=== PATIENT | male | born 1935 | race Caucasian/White ===

== ENCOUNTER 2016-10-05 11:09 | Observation (INO) ==
[2016-10-05] MEDS ORDERED: 0.9 % Sodium Chloride 1,000 ML IVC ONE (11:14)
[2016-10-05] MEDS ORDERED: Ondansetron 4 MG/2 ML VIAL IVP ONE (11:15)
--- NOTE | 2016-10-05 11:20 | Emergency Department Note ---
Disposition Clinical Impression: Hypoxia, Elevated troponin, Dehydration, Shortness of breath Nausea and vomiting Qualifiers: Vomiting type: unspecified Vomiting Intractability: non-intractable Qualified Code(s): R11.2 - Nausea with vomiting, unspecified Disposition: Admitted As Inpatient Condition: Fair Referrals: Ptat Shin CNP [Primary Care Provider] - Forms: ED Satisfaction Letter Time of Disposition: 12:53 Nausea/Vomiting/Diarrhea HPI - General Chief complaint: ED Nausea/Vomiting/Diarrhea Stated complaint: N/V x4 days Time Seen by Provider: 10/05/16 11:14 Source: patient, EMS Mode of arrival: EMS Limitations: no limitations Nursing Notes Reviewed: Yes Vital Signs Reviewed: Yes - History of Present Illness HPI Narrative: Patient is a 80-year-old male with past medical history of COPD, CAD, A. fib, pacemaker placement, DM, previous abdominal surgery for ulcers according to patient. He presents today via EMS due to nausea, vomiting, generalized abdominal pain, diarrhea. Patient said this has been occurring for 3-4 days and he came in today due to intractable vomiting and diarrhea. Denies any chest pain, shortness of breath, burning with urination, blood in vomit or - Related Data Home Medications Medication Instructions Recorded Confirmed Amiodarone [Cordarone] 200 mg PO DAILY 09/19/15 05/17/16 Calcium Carbonate/Vitamin D3 1 each PO DAILY 09/19/15 05/17/16 [Calcium 500-Vit D3 400 Tablet] Ferrous Sulfate [Iron] 325 mg PO DAILY 09/19/15 05/17/16 Furosemide [Lasix] 40 mg PO DAILY 09/19/15 05/17/16 Gabapentin [Neurontin] 600 mg PO TID 09/19/15 05/17/16 Linagliptin [Tradjenta] 5 mg PO DAILY 09/19/15 05/17/16 Melatonin [Melatin] 3 mg PO QPM 09/19/15 05/17/16 Omeprazole [PriLOSEC] 20 mg PO DAILY 09/19/15 05/17/16 Potassium Chloride [Klor-Con 10 meq PO BID 09/19/15 05/17/16 Sprinkle] Rivaroxaban [Xarelto] 20 mg PO DAILY 09/19/15 05/17/16 Sertraline [Zoloft] 100 mg PO DAILY 09/19/15 05/17/16 TraMADol [Ultram] 50 mg PO TID PRN 09/19/15 05/17/16 Atorvastatin [Lipitor] 40 mg PO HS 05/17/16 05/17/16 Cyanocobalamin (Vitamin B-12) 1,000 mcg PO DAILY 05/17/16 05/17/16 [Vitamin B12] Donepezil [Aricept] 10 mg PO HS 05/17/16 05/17/16 Insulin ASPART [Novolog] 0 unit SQ TIDWM MDD per sliding 05/17/16 05/17/16 scale Insulin Glargine [Lantus] 14 unit SQ QAM 05/17/16 05/17/16 Ipratropium/Albuterol Neb [Duoneb] 3 ml IH Q6HR PRN 05/17/16 05/17/16 Ondansetron HCl [Zofran] 4 mg PO BID PRN 05/17/16 05/17/16 Oxygen 1 each .ROUTE AD 05/17/16 05/17/16 Ranolazine [Ranexa] 500 mg PO BID 05/17/16 05/17/16 Previous Rx's Medication Instructions Recorded Finasteride [Proscar] 5 mg PO DAILY #30 tablet 11/05/15 Hydrocodone/Acetaminophen [[place] 1 tab PO Q6H PRN #12 tab 12/12/15 5-325 Tablet] Levofloxacin [Levaquin] 750 mg PO DAILY #10 tablet 05/18/16 PredniSONE 60 mg PO DAILY 12 Days 05/18/16 Simvastatin [Zocor] 20 mg PO HS #30 tablet 05/18/16 Allergies Allergy/AdvReac Type Severity Reaction Status Date / Time amitriptyline Allergy Unknown unknown Verified 12/12/15 11:40 All systems ED: reviewed and negative except as stated. Constitutional: Reports: weakness (Generalized). Denies: fever, chills Eyes: Denies: eye pain, eye discharge ENT ED: Denies: ear pain, throat pain Cardiovascular: Denies: chest pain, palpitations Respiratory: Reports: wheezes. Denies: cough, dyspnea Gastrointestinal: Reports: abdominal pain (Generalized), nausea, vomiting, diarrhea. Denies: hematemesis, melena, hematochezia Genitourinary: Denies: urgency, dysuria, frequency Musculoskeletal: Denies: back pain, neck pain Integumentary: Denies: rash Neurological: Denies: headache, numbness, paresthesias Endocrine: Denies: fatigue Past Medical History - Past Medical History Attestation: Yes The following information was validated with the patient. Medical history: Reports: atrial fibrillation, COPD, coronary artery disease, DVT, diabetes, GERD, hyperlipidemia, hypertension, myocardial infarction Surgical history: Reports: angioplasty/stent, pacemaker/AICD Psychiatric history: Reports: depression - Social History Smoking Status: Current every day smoker Smokeless Tobacco Status: No Alcohol use: Reports: none Drug use: Reports: none Physical Exam - General Limitations: no limitations General appearance: alert, other (Patient lying on left side in position, appears uncomfortable and dehydrated.) - Head Head exam: atraumatic, normocephalic, normal inspection - Eye Eye exam: Present: normal appearance, PERRL, EOMI - ENT ENT exam: normal oropharynx, mucous membranes dry - Neck Neck exam: Present: normal inspection, full ROM, trachea midline - Chest Chest inspection: Present: normal inspection, symmetric chest wall rise - Respiratory Respiratory exam: Present: wheezes - Cardiovascular Cardiovascular exam: Present: normal rhythm, tachycardia, normal heart sounds - Abdominal Exam Abdominal exam: Present: soft, tenderness (Generalized abdominal tenderness, mild). Absent: distention, guarding, rebound, rigidity - Extremities Exam Extremities exam: Present: normal inspection, full ROM. Absent: tenderness, pedal edema - Back Exam Back exam: Present: normal inspection, full ROM. Absent: tenderness - Neurological Exam Neurological exam: Present: alert, oriented X3, CN II-XII intact - Psychiatric Psychiatric exam: Present: normal affect, normal mood - Skin Skin exam: Present: warm, dry, intact, normal color Course Course Narrative: Patient was hypoxic 88% on presentation without O2. 2L NC sating in 96%. Rest of vitals WNL. Will obtain basic blood work, EKG, chest x-ray, acute abdominal series, troponin, abdominal labs. We will give patient fluids and Zofran for dehydration and nausea control. 12:06 labs showed leukocytosis with white blood cell count 16. BMP nonconcerning. Trop 0.07 but is chronically elevated in past, no chest pain on exam but does have shortness of breath greater than baseline. He states he only uses oxygen as needed at home and has had to use it for past 3-4 days due to increased shortness of breath. Will give aspirin 325mg due to elevated trop. chest x-ray negative for any acute cardiopulmonary process. However patient has leukocytosis and a productive cough on exam. We will draw blood cultures and give the patient a dose of azithromycin. KUB shows nonspecific bowel gas pattern. Currently waiting on BNP. Due to clinical signs of pneumonia, hypoxia, nausea, vomiting, diarrhea and signs of dehydration, elevated trop, we will admit patient for further care. Vital Signs Temperature 97.6 F 10/05/16 11:10 Pulse Rate 75 10/05/16 11:10 Respiratory Rate 24 10/05/16 11:10 Blood Pressure 149/89 10/05/16 11:10 O2 Sat by Pulse Oximetry 96 10/05/16 11:10 Temperature 97.6 F 10/05/16 11:10 Pulse Rate 62 10/05/16 12:45 Respiratory Rate 16 10/05/16 12:58 Blood Pressure 133/65 10/05/16 12:58 O2 Sat by Pulse Oximetry 99 10/05/16 12:58 Oxygen Delivery Oxygen Delivery Nasal Cannula Nausea/Vomiting/Diarrhea - [facility] Narrative Medical decision making narrative: Patient was hypoxic 88% on presentation without O2. 2L NC sating in 96%. Rest of vitals WNL. Will obtain basic blood work, EKG, chest x-ray, acute abdominal series, troponin, abdominal labs. We will give patient fluids and Zofran for dehydration and nausea control. 12:06 labs showed leukocytosis with white blood cell count 16. BMP nonconcerning. Trop 0.07 but is chronically elevated in past, no chest pain on exam but does have shortness of breath greater than baseline. He states he only uses oxygen as needed at home and has had to use it for past 3-4 days due to increased shortness of breath. Will give aspirin 325mg due to elevated trop. chest x-ray negative for any acute cardiopulmonary process. However patient has leukocytosis and a productive cough on exam. We will draw blood cultures and give the patient a dose of azithromycin. KUB shows nonspecific bowel gas pattern. Currently waiting on BNP. Due to clinical signs of pneumonia, hypoxia, nausea, vomiting, diarrhea and signs of dehydration, elevated trop, we will admit patient for further care. - Medical Records Medical records reviewed: Yes I reviewed the patient's medical records. - Lab Data Lab results reviewed: Yes I reviewed the patient's lab results. Result diagrams: 10/05/16 11:23 10/05/16 11:23 Lab Results 10/05/16 10/05/16 10/05/16 Range/Units 11:23 11:23 11:23 WBC 16.2 H (4.3-11.1) K/mcL RBC 4.57 (4.19-5.50) M/mcL Hgb 13.2 (12.9-16.9) g/dL Hct 40.7 (37.5-50.1) % MCV 89.1 (83.0-100.0) fL MCH 28.9 (28.0-33.3) pg MCHC 32.4 (31.6-35.5) g/dL RDW 14.7 H (11.5-14.5) % Plt Count 155 (140-400) K/mcL MPV 11.4 (9.4-12.4) fL Immature Gran % 0.4 (0-4) % Seg Neutrophils % 85.1 % Lymphocytes % 6.8 % Monocytes % 7.5 % Eosinophils % 0.1 % Basophils % 0.1 % Neutrophils # 13.8 H (1.6-8.9) K/mcL Lymphocytes # 1.1 (0.6-4.6) K/mcL Monocytes # 1.2 (0.0-1.3) K/mcL Eosinophils # 0.0 (0.0-0.6) K/mcL Basophils # 0.0 (0.0-0.2) K/mcL Sodium 137 (136-145) mEq/L Potassium 3.7 (3.5-4.5) mEq/L Chloride 98 (98-109) mEq/L Carbon Dioxide 26 (19-29) mEq/L BUN 22 (8-26) mg/dL Creatinine 1.17 (0.72-1.25) mg/dL Est GFR ( Amer) > 60 (> 60) Est GFR (Non-Af Amer) > 60 (> 60) BUN/Creatinine Ratio 19 (6-26) Glucose 160 H (70-99) mg/dL Calculated Osmolality 291 (280-300) Calcium 9.4 (8.6-10.8) mg/dL Total Bilirubin 0.4 (0.2-1.2) mg/dL Direct Bilirubin 0.2 (0.0-0.5) mg/dL Indirect Bilirubin 0.2 (0.0-1.2) mg/dL AST 61 H (5-34) Units/L ALT 59 H (0-55) Units/L Alkaline Phosphatase 117 (38-126) Units/L Troponin I (0-0.03) ng/mL B-Natriuretic Peptide 212 H (0-100) pg/mL Serum Total Protein 8.2 (6.0-8.3) g/dL Albumin 3.2 L (3.5-5.0) g/dL Globulin 5.0 H (2.4-3.5) g/dL Albumin/Globulin Ratio 0.6 L (1.1-2.2) Lipase 22 (8-78) Units/L // Range/Units 11:25 WBC (4.3-11.1) K/mcL RBC (4.19-5.50) M/mcL Hgb (12.9-16.9) g/dL Hct (37.5-50.1) % MCV (83.0-100.0) fL MCH (28.0-33.3) pg MCHC (31.6-35.5) g/dL RDW (11.5-14.5) % Plt Count (140-400) K/mcL MPV (9.4-12.4) fL Immature Gran % (0-4) % Seg Neutrophils % % Lymphocytes % % Monocytes % % Eosinophils % % Basophils % % Neutrophils # (1.6-8.9) K/mcL Lymphocytes # (0.6-4.6) K/mcL Monocytes # (0.0-1.3) K/mcL Eosinophils # (0.0-0.6) K/mcL Basophils # (0.0-0.2) K/mcL Sodium (136-145) mEq/L Potassium (3.5-4.5) mEq/L Chloride (98-109) mEq/L Carbon Dioxide (19-29) mEq/L BUN (8-26) mg/dL Creatinine (0.72-1.25) mg/dL Est GFR ( Amer) (> 60) Est GFR (Non-Af Amer) (> 60) BUN/Creatinine Ratio (6-26) Glucose (70-99) mg/dL Calculated Osmolality (280-300) Calcium (8.6-10.8) mg/dL Total Bilirubin (0.2-1.2) mg/dL Direct Bilirubin (0.0-0.5) mg/dL Indirect Bilirubin (0.0-1.2) mg/dL AST (5-34) Units/L ALT (0-55) Units/L Alkaline Phosphatase (38-126) Units/L Troponin I 0.07 H* (0-0.03) ng/mL B-Natriuretic Peptide (0-100) pg/mL Serum Total Protein (6.0-8.3) g/dL Albumin (3.5-5.0) g/dL Globulin (2.4-3.5) g/dL Albumin/Globulin Ratio (1.1-2.2) Lipase (8-78) Units/L - Radiology Data Radiology results reviewed: Yes I reviewed the patient's radiology results. Chest/Abdomen X-ray 10/05/16 11:17 IMPRESSION: No evidence of free intraperitoneal air. Nonspecific bowel gas pattern. D/ / Keenan Hardy MD / Keenan Hardy MD Interpreting Provider: Keenan Hardy MD - EKG Data EKG attestation: Yes I reviewed and interpreted this EKG. EKG results narrative: 10/05/2016 at 11:14. Paced rhythm. Rate 75. QTC 494. No acute ST elevation or depression. Unchanged from previous EKG on 05/16/16 S.B.A.Gladys - S.Mikel.A.RCasey Situation: Demographics, MOA Background: Presenting Complaint, Relevant PMH, Meds, & Allergies Assessment: Vital Signs, Course and respsone to treatment, Exam Concerns, Patient/Family Expectation, Pertinant Lab Results, Outstanding Labs Recommendation: Barrier(s) to disposition, Recommendation based on pending studies, treatments, or consults [id number] Report Given to: Bear Resendiz Time: 12:53 Attestation Statement - Attestation Attestation: Patient was seen with resident physician. I reviewed the history, physical, assessment and plan, and agree with the findings. I also personally evaluated this patient and had [id number] time with this patient. 80-year-old male presents to the emergency Department chief complaint nausea vomiting and diarrhea. It has been getting progressively worse for the last 2-3 days. Patient also has CHF COPD, and a pacemaker. He denies chest pain. He says his been feeling generally weaker and cannot stop throwing up. On examination ENT dry mucous membranes. Heart is regular rhythm and rate. Lungs a few thrills throughout. Abdomen soft no tenderness could be elicited with palpation. Extremities are unremarkable. Neurologically since alert and oriented. We will treat for nausea and vomiting, likely viral enteritis. We will also check labs and administer some IV fluids. Because of the patient's cardiac history we will also check for any problems with that. Patient remained hypoxic throughout his stay. He did receive nebulizer treatment. Additionally multiple abnormalities were found on workup including an elevated white cell count, and elevated troponin. His EKG was unremarkable. Chest x-ray was read as negative. But with his hypoxia and increased sputum production, and generalized trouble breathing we did order IV Zithromax. Because of the multiple issues with this patient and admission was indicated. We spoke with the hospitalist to arrange for hospitalization. Patient remained hemodynamically stable while in the ER. I agree with the resident physician assessment and plan.
[2016-10-05 11:30] LABS: Basophils % 0.1 %; Eosinophils % 0.1 %; Hematocrit 40.7 % (37.5-50.1); Hemoglobin 13.2 g/dL (12.9-16.9); Immature Granulocytes % 0.4 % (0-4); Lymphocytes # 1.1 K/mcL (0.6-4.6); Lymphocytes % 6.8 %; Mean Corpuscular HGB Conc 32.4 g/dL (31.6-35.5); Mean Corpuscular Hemoglobin 28.9 pg (28.0-33.3); Mean Corpuscular Volume 89.1 fL (83.0-100.0); Mean Platelet Volume 11.4 fL (9.4-12.4); Monocytes # 1.2 K/mcL (0.0-1.3); Monocytes % 7.5 %; Neutrophils # 13.8 K/mcL (1.6-8.9); Platelet Count 155 K/mcL (140-400); Red Blood Count 4.57 M/mcL (4.19-5.50); Red Cell Distribution Width 14.7 % (11.5-14.5); Segmented Neutrophils % 85.1 %
[2016-10-05 11:45] LABS: Alanine Aminotransferase 59 Units/L (0-55); Albumin 3.2 g/dL (3.5-5.0); Albumin/Globulin Ratio 0.6 (1.1-2.2); Alkaline Phosphatase 117 Units/L (38-126); Aspartate Amino Transferase 61 Units/L (5-34); BUN/Creatinine Ratio 19 (6-26); Bilirubin,Direct 0.2 mg/dL (0.0-0.5); Bilirubin,Indirect 0.2 mg/dL (0.0-1.2); Bilirubin,Total 0.4 mg/dL (0.2-1.2); Blood Urea Nitrogen 22 mg/dL (8-26); Calcium 9.4 mg/dL (8.6-10.8); Carbon Dioxide 26 mEq/L (19-29); Chloride 98 mEq/L (98-109); Glucose 160 mg/dL (70-99); Lipase 22 Units/L (8-78); Osmolality,Calculated 291 (280-300); Potassium 3.7 mEq/L (3.5-4.5); Sodium 137 mEq/L (136-145); Total Protein 8.2 g/dL (6.0-8.3); eGFR For African Americans > 60 (> 60); eGFR For Non-African Americans > 60 (> 60)
[2016-10-05] MEDS ORDERED: Azithromycin 500 MG in D5% in Water 250 ML IVPB ONE (12:13)
[2016-10-05] MEDS ORDERED: Aspirin 325 MG TABLET PO ONE (12:16)
[2016-10-05] MEDS ORDERED: Ipratropium/Albuterol Neb 3 ML IH ONE (12:52)
[2016-10-05] MEDS ORDERED: Ondansetron 4 MG/2 ML VIAL IVP PRN (14:36)
[2016-10-05] MEDS ORDERED: Naloxone 0.4 MG/ML INJ IVP PRN (14:36)
[2016-10-05] MEDS ORDERED: MOM Conc 10 ML UD.LIQ PO PRN (14:36)
[2016-10-05] MEDS ORDERED: Acetaminophen 325 MG TABLET PO PRN (14:36)
[2016-10-05] MEDS ORDERED: traMADol 50 MG TABLET PO PRN ×2 (15:15→15:45)
[2016-10-05] MEDS ORDERED: Ipratropium/Albuterol Neb 3 ML IH PRN (15:15)
[2016-10-05] MEDS ORDERED: *HR* HYDROcodone/Acet 5/325 mg TABLET PO PRN ×2 (15:15→15:45)
--- NOTE | 2016-10-05 15:29 | Internal Med History&Physical ---
<Keren Coley L - Last Filed: 10/05/16 17:11> Date of Encounter: 10/05/16 Time of Encounter: 14:25 Assessment and Plan (1) Nausea Current visit: Yes Status: Acute Pt reports nausea for 24 hours prior to arrival. It was relieved with Zofran in the ER. Denies any now. Zofran 4mg 1V q6h prn (2) Shortness of breath Current visit: Yes Status: Acute Plan as above (3) Acute exacerbation of chronic obstructive pulmonary disease (COPD) Current visit: No Status: Acute Pt has been SOB for last 24 hours prior to admission. He is not in distress currently,however his room air sat was 88% when he arrived to the ED. He wears home 02 2L and is still smoking, a pack lasts him about 2 days. He is on 2L 02 now and is tolerating it well, speaks easily in full sentences. His chest xray in the ED is negative for cardiopulmonary disease. He has wheezes and is diminished throughout. He admits to smoking about 1/2 PPD and is not interested in discussing smoking cessation, however, we will present it again at discharge. 02 2L continuous pulse ox Duonebs q4h scheduled Budesonide nebs mucinex 6 min walk in am Monitor labs Smoking cessation education (4) Dehydration Current visit: Yes Status: Acute Labs WNL, however pt appears to be dehydrated. He admits that he doesn't eat or drink enough and he can't remember the last time he had a meal. States that he is living on crackers "whenever I feel like eating them". Conjunctiva are pale, oral mucosa and tongue appear dry. Pt is taking lasix daily and not drinking fluids, which is likely the cause. gentle IVF 0.9NS @ 60ml/hour for 24 hr given suspected history of CHF Clear liquid diet for now since ER reports vomiting, will advance as he tolerates (5) Elevated troponin Current visit: Yes Status: Acute Troponin 0.07ng/dl in ER today. Chronically elevated every visit since 2013. EKG showed no acute ischemic changes. Will trend troponins and consult cardiology if they continue to elevate. Pt denies cp. (6) Hypoxia Current visit: Yes Status: Acute Monitor 02 sats 02 2L n/c (7) Failure to thrive Current visit: Yes Status: Acute Pt has no appetite and has not felt well for 24 hours. He intentionally lost 100 # a few years ago, but states that he feels that he has lost more unintentionally. He has no appetite and is dehydrated. He lives at home with his and they get [employer], who cooks for them,5 days/week, but he is not eating. He says he has no energy. Nutrition consult manager of environmental services consult PT/OT consult Qualifiers: Failure to thrive age range: in adult Qualified Code(s): R62.7 - Adult failure to thrive (8) Suspected CHF (congestive heart failure) Current visit: Yes Status: Acute As with his troponin, his BNP is chronically elevated. 212 today, this is normal. He takes lasix and actually appears to be dry. Lungs sounds are diminished and wheezing is heard post. 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 holding home dose of lasix. (9) Atrial fibrillation Current visit: No Status: Acute Patient has PCM. EKG shows pacing rhythm, adequate HR. continue home meds: amio , toprol, xarelto. Qualifiers: Atrial fibrillation type: paroxysmal Qualified Code(s): I48.0 - Paroxysmal atrial fibrillation (10) Tobacco abuse Current visit: Yes Status: Acute nicotine patch. counseled to quit. Internal Medicine - H&P: HPI Chief complaint: SOB, nausea x 24 hours Admitted From: Home Plans for Post Hospital Care: Home History of present illness: Mr. Mistry is a 80 year old male with a history of dementia, hypoxia, hyperlipidemia, cardiomegaly, pacemaker, a-fib, CAD, and COPD, who comes to the ER today for SOB and nausea x 24 hours. Pt states that he hasn't felt well for 15 years since he retired, but last night he couldn't sleep and was nauseated so he came to be seen in the ED. Pt denies vomiting, but reports nausea that is resolved with Zofran that was given in ED. Pt is alert and answers questions appropriately, is extremely [place]. He has had a productive cough with yellow sputum for the last 24 hours, but denies fever or chills. He wears home 02 at 2L, is adherent to his inhaler regimen and denies increased use. His chest xray shows pacer wires, healing R rib ractures, no free air under the diaphragm, and non-specific bowel gas pattern. Lung sounds are diminshed throughout and there are expiratory wheezes posteriorly in all lopez.02 sat was 88% on arrival to ED, however now is 98% on 4L. Pt is frail and appears to be dehydrated. He states that he doesn't eat very often and has no appetite and doesn't know when he had a meal last, despite having home health 5 days per week who he and his cook and clean. He states that he intentionally lost 100 lbs a few years ago, and feels that he has lost more recently, but is unsure of how much. Past Med Surg Social Fam HX - Past Medical History Medical history: atrial fibrillation, COPD, coronary artery disease, DVT, diabetes, GERD, hyperlipidemia, hypertension, myocardial infarction Psychiatric history: depression - Past Surgical History Surgical History: angioplasty/stent, pacemaker/AICD - Social History Smoking Status: Current every day smoker Smokeless Tobacco Status: No Alcohol use: none Drug use: none - Family History Father Family Member Ethnicity: Non- Hx Family Cardiac Disorders: Yes Hx Family Respiratory Disorders: Yes Hx Family Cancer: No Hx Family GI Disorders: No Hx Family Endocrine Disorder: Yes Hx Family Neuromuscular Disorders: No Hx Family Neurologic Disorders: No Hx Family HEENT Disorders: No Hx Family Autoimmune Disorders: No Internal Medicine - H&P: Meds Amiodarone [Cordarone] 200 mg PO DAILY 09/19/15 [History] Calcium Carbonate/Vitamin D3 [Calcium 500-Vit D3 400 Tablet] 1 tab PO DAILY [History] Ferrous Sulfate [Iron] 325 mg PO DAILY 09/19/15 [History] Furosemide [Lasix] 40 mg PO DAILY 09/19/15 [History] Gabapentin [Neurontin] 800 mg PO TID 09/19/15 [History] Linagliptin [Tradjenta] 5 mg PO DAILY 09/19/15 [History] Melatonin [Melatin] 3 mg PO HS 09/19/15 [History] Omeprazole [PriLOSEC] 20 mg PO DAILY 09/19/15 [History] Potassium Chloride [Klor-Con Sprinkle] 10 meq PO BID 09/19/15 [History] Rivaroxaban [Xarelto] 20 mg PO DAILY 09/19/15 [History] Sertraline [Zoloft] 100 mg PO DAILY 09/19/15 [History] TraMADol [Ultram] 50 mg PO TID PRN 09/19/15 [History] Finasteride [Proscar] 5 mg PO DAILY #30 tablet 11/05/15 [Rx] Hydrocodone/Acetaminophen [[place] 5-325 Tablet] 1 tab PO Q6H PRN #12 tab [Rx] Atorvastatin [Lipitor] 40 mg PO HS 05/17/16 [History] Cyanocobalamin (Vitamin B-12) [Vitamin B12] 1,000 mcg PO DAILY 05/17/16 [History ] Donepezil [Aricept] 10 mg PO HS 05/17/16 [History] Insulin ASPART [Novolog] 2 - 12 unit SQ TIDWM MDD per sliding scale 05/17/16 [ History] Insulin Glargine [Lantus] 14 unit SQ QAM 05/17/16 [History] Ipratropium/Albuterol Neb [Duoneb] 3 ml IH Q6HR PRN 05/17/16 [History] Ondansetron HCl [Zofran] 4 mg PO BID PRN 05/17/16 [History] Oxygen 1 each .ROUTE AD 05/17/16 [History] Ranolazine [Ranexa] 500 mg PO BID 05/17/16 [History] Metoprolol XL (24 HR) Succ [Toprol XL] 12.5 mg PO DAILY 10/05/16 [History] Allergies amitriptyline Allergy (Unknown, Verified 10/05/16 14:44) unknown PATIENT UNSURE OF REACTION- NO REACTIONS LISTED ON ECW All Systems PM: A 10-system review of systems was performed and is negative for pertinent findings except as documented above in the HPI. - Constitutional Constitutional: anorexia, weight loss, no chills, no fever(s), no falls, no weakness - EENT Ears: decreased hearing Nose, mouth and throat: no nasal congestion, no nasal discharge, no sore throat - Cardiovascular Cardiovascular ROS IM: dyspnea, no chest pain, no diaphoresis, no edema, no lightheadedness, no palpitations - Respiratory Respiratory: cough, dyspnea, no wheezing, no chest congestion, no pain with cough - Gastrointestinal Gastrointestinal: nausea, no diarrhea, no heartburn, no vomiting - Genitourinary Genitourinary ROS male: no difficulty urinating, no dysuria - Constitutional Vitals: Temp Pulse Resp BP Pulse Ox 98.2 F 67 16 96/45 100 10/05/16 14:40 10/05/16 14:40 10/05/16 14:40 10/05/16 14:40 10/05/16 14:40 General appearance: Present: A&O X 3, pleasant, no acute distress, answers questions appropriately Exam: Patient introduced questions appropriately however at times does not seem to understand questions. - Head Head exam: Present: normal inspection - ENT ENT exam: Present: mucous membranes dry, normal external ear exam - Neck Neck exam general surgery: Present: normal inspection. Absent: lymphadenopathy , tenderness - Respiratory Respiratory exam: Present: decreased breath sounds, wheezes. Absent: accessory muscle use, chest wall tenderness, respiratory distress - Cardiovascular Cardiovascular exam: Present: RRR, +S1, +S2. Absent: diastolic murmur, systolic murmur - GI/Abdominal GI/Abdominal exam: Present: normal bowel sounds. Absent: distended, pulsatile mass, tenderness - Extremities Exam Extremities exam: Present: cyanotic, full ROM, warm, radial pulses palpable and symetrical. Absent: joint swelling, pedal edema, tenderness Additional comments: The patient was seated on the bed with feet on floor bilateral feet were discolored. No edema, pulses palpable bilaterally. - Neurological Exam Neurological exam: Present: alert, oriented X3, no focal deficits, strengths equal and symetr throughout Internal Med - H&P Results - Labs CBC & Chem 7: 10/05/16 11:23 10/05/16 11:23 <Taryn Barber - Last Filed: 10/05/16 17:26> Date of Encounter: 10/05/16 Internal Medicine - H&P: HPI History of present illness: Mr. Mistry is a 80 year old male All Systems PM: A 10-system review of systems was performed and is negative for pertinent findings except as documented above in the HPI. - Constitutional Vitals: Temp Pulse Resp BP Pulse Ox 98.2 F 67 18 96/45 98 10/05/16 14:40 10/05/16 14:40 10/05/16 15:45 10/05/16 14:40 10/05/16 15:45 Internal Med - H&P Results - Labs CBC & Chem 7: 10/05/16 11:23 10/05/16 11:23 - Attending Attestation I examined this patient and reviewed laboratory, imaging and all diagnostic data. My medical decision-making was reviewed with DAT Coley. I agree with the documented findings, disposition and treatment plan as described above. 80-year-old male with past medical history of COPD (uses O2 only when needs it) , atrial fibrillation on Xarelto, DM, CAD, HTN, and tobacco user who presented with progressive shortness of breath and nausea. On exam, chest has very diminished air entry and mild wheezes, no LE edema, dry skin. CXR shows no acute process. a/p 1. Acute COPD exacerbation. likely trigger URI but CXR could be negative due to dehydration. Albuterol/atrovent/budesonide nebulizations. Mucinex. IV Ceftriaxone. IV steroids bid. Pt needs outpatient PFT due to use of amiodarone and COPD. 6-min walk in AM. consider CT chest if clinically no improvement. 2. Suspected CHF since patient takes Lasix at home. Hold Lasix due to dehydration. Gentle IV fluid hydration 60 ml/hr NS.
[2016-10-05] MEDS: Budesonide Neb 0.25 MG/2 ML IH SCH ×2 (15:39→21:50)
[2016-10-05] MEDS: Ipratropium/Albuterol Neb 3 ML IH SCH ×2 (15:45→21:50)
[2016-10-05] MEDS: 0.9 % Sodium Chloride 1,000 ML IVC SCH (16:17)
[2016-10-05] MEDS ORDERED: *HR* Rivaroxaban 10 MG TABLET PO SCH (17:00)
[2016-10-05] MEDS ORDERED: *HR* Rivaroxaban 15 MG TABLET PO SCH (17:00)
[2016-10-05] MEDS ORDERED: D5% in Water 1,000 ML IV PRN (17:22)
[2016-10-05] MEDS ORDERED: Dextrose Gel 15 GM PO PRN ×2 (17:22)
[2016-10-05] MEDS ORDERED: *HR* Dextrose 50 % in Water (Syg) 50 ML SYRINGE IVP PRN (17:22)
[2016-10-05] MEDS: MethylPREDNISolone 40 MG/ML VIAL IVP SCH (17:52)
[2016-10-05] MEDS: Insulin LISPRO 300 UNITS/3 ML VIAL SQ SCH (17:53)
[2016-10-05] MEDS: Gabapentin 400 MG CAPSULE PO SCH (20:26)
[2016-10-05] MEDS: Ranolazine 500 MG TAB.ER.12H PO SCH (20:26)
[2016-10-05] MEDS ORDERED: Insulin LISPRO 300 UNITS/3 ML VIAL SQ SCH (21:00)
[2016-10-05] MEDS ORDERED: Melatonin 3 MG TABLET PO SCH (21:00)
[2016-10-06] MEDS: Ipratropium/Albuterol Neb 3 ML IH SCH ×4 (01:10→11:05)
[2016-10-06 04:59] LABS: Hematocrit 34.6 % (37.5-50.1); Mean Corpuscular HGB Conc 31.8 g/dL (31.6-35.5); Mean Corpuscular Hemoglobin 28.5 pg (28.0-33.3); Mean Corpuscular Volume 89.6 fL (83.0-100.0); Mean Platelet Volume 10.8 fL (9.4-12.4); Platelet Count 133 K/mcL (140-400); Red Blood Count 3.86 M/mcL (4.19-5.50); Red Cell Distribution Width 14.6 % (11.5-14.5)
[2016-10-06 05:19] LABS: Hemoglobin A1C 9.4 %
[2016-10-06 05:23] LABS: BUN/Creatinine Ratio 17 (6-26); Blood Urea Nitrogen 20 mg/dL (8-26); Calcium 8.2 mg/dL (8.6-10.8); Carbon Dioxide 24 mEq/L (19-29); Chloride 101 mEq/L (98-109); Glucose 291 mg/dL (70-99); Osmolality,Calculated 291 (280-300); Potassium 4.3 mEq/L (3.5-4.5); Sodium 134 mEq/L (136-145); eGFR For African Americans > 60 (> 60); eGFR For Non-African Americans 59 (> 60)
[2016-10-06 05:43] LABS: Lymphocytes # 0.6 K/mcL (0.6-4.6); Monocytes # 0.6 K/mcL (0.0-1.3); Neutrophils # 9.9 K/mcL (1.6-8.9)
[2016-10-06 05:44] LABS: Platelet Estimate Normal (Normal)
[2016-10-06] MEDS: Insulin LISPRO 300 UNITS/3 ML VIAL SQ SCH ×2 (06:15→12:01)
[2016-10-06] MEDS: MethylPREDNISolone 40 MG/ML VIAL IVP SCH (06:16)
[2016-10-06] MEDS: Budesonide Neb 0.25 MG/2 ML IH SCH (07:55)
[2016-10-06] MEDS ORDERED: Metoprolol XL (24 HR) Succ 25 MG TAB.ER.24H PO SCH (09:00)
[2016-10-06] MEDS ORDERED: *HR* Amiodarone 200 MG TABLET PO SCH (09:00)
[2016-10-06] MEDS ORDERED: Nicotine 14 MG PATCH.TD24 TD SCH (09:00)
[2016-10-06] MEDS ORDERED: Finasteride 5 MG TABLET PO SCH (09:00)
[2016-10-06] MEDS ORDERED: Cyanocobalamin (B-12) 1,000 MCG TABLET PO SCH (09:00)
[2016-10-06] MEDS: Gabapentin 400 MG CAPSULE PO SCH (09:18)
[2016-10-06] MEDS: Ranolazine 500 MG TAB.ER.12H PO SCH (09:18)
[2016-10-06] MEDS: 0.9 % Sodium Chloride 1,000 ML IVC SCH (09:19)
--- NOTE | 2016-10-06 11:07 | Discharge Summary ---
Date of Encounter: 10/06/16 Time of Encounter: 09:50 - Discharge Diagnosis (1) Acute exacerbation of chronic obstructive pulmonary disease (COPD) Priority: Primary Status: Acute (2) Dehydration Priority: Secondary Status: Acute (3) Elevated troponin Priority: Secondary Status: Acute (4) Failure to thrive Priority: Secondary Status: Acute Qualifiers: Failure to thrive age range: in adult Qualified Code(s): R62.7 - Adult failure to thrive (5) Hypoxia Priority: Secondary Status: Acute (6) Nausea Priority: Secondary Status: Acute (7) Nausea and vomiting Priority: Secondary Status: Acute Qualifiers: Vomiting type: unspecified Vomiting Intractability: non-intractable Qualified Code(s): R11.2 - Nausea with vomiting, unspecified (8) Shortness of breath Priority: Secondary Status: Acute (9) Chronic respiratory failure Priority: Secondary Status: Chronic Qualifiers: Respiratory failure complication: hypoxia Qualified Code(s): J96.11 - Chronic respiratory failure with hypoxia (10) Diabetes mellitus Priority: Secondary Status: Chronic Qualifiers: Diabetes mellitus type: type 2 Diabetes mellitus complication status: with hyperglycemia Diabetes mellitus laboratory assistant insulin use: without laboratory assistant use Qualified Code(s): E11.65 - Type 2 diabetes mellitus with hyperglycemia - Discharge Medications Prescriptions: Doxycycline 100 mg PO BID #14 capsule PredniSONE 10 mg PO DAILY 8 Days Home Medications: Amiodarone [Cordarone] 200 mg PO DAILY 09/19/15 [History] Calcium Carbonate/Vitamin D3 [Calcium 500-Vit D3 400 Tablet] 1 tab PO DAILY [History] Ferrous Sulfate [Iron] 325 mg PO DAILY 09/19/15 [History] Furosemide [Lasix] 40 mg PO DAILY 09/19/15 [History] Gabapentin [Neurontin] 800 mg PO TID 09/19/15 [History] Linagliptin [Tradjenta] 5 mg PO DAILY 09/19/15 [History] Melatonin [Melatin] 3 mg PO HS 09/19/15 [History] Omeprazole [PriLOSEC] 20 mg PO DAILY 09/19/15 [History] Potassium Chloride [Klor-Con Sprinkle] 10 meq PO BID 09/19/15 [History] Rivaroxaban [Xarelto] 20 mg PO DAILY 09/19/15 [History] Sertraline [Zoloft] 100 mg PO DAILY 09/19/15 [History] TraMADol [Ultram] 50 mg PO TID PRN 09/19/15 [History] Finasteride [Proscar] 5 mg PO DAILY #30 tablet 11/05/15 [Rx] Hydrocodone/Acetaminophen [[place] 5-325 Tablet] 1 tab PO Q6H PRN #12 tab [Rx] Atorvastatin [Lipitor] 40 mg PO HS 05/17/16 [History] Cyanocobalamin (Vitamin B-12) [Vitamin B12] 1,000 mcg PO DAILY 05/17/16 [History ] Donepezil [Aricept] 10 mg PO HS 05/17/16 [History] Insulin ASPART [Novolog] 2 - 12 unit SQ TIDWM MDD per sliding scale 05/17/16 [ History] Insulin Glargine [Lantus] 14 unit SQ QAM 05/17/16 [History] Ipratropium/Albuterol Neb [Duoneb] 3 ml IH Q6HR PRN 05/17/16 [History] Ondansetron HCl [Zofran] 4 mg PO BID PRN 05/17/16 [History] Oxygen 1 each .ROUTE AD 05/17/16 [History] Ranolazine [Ranexa] 500 mg PO BID 05/17/16 [History] Metoprolol XL (24 HR) Succ [Toprol Xl] 12.5 mg PO DAILY 10/05/16 [History] Doxycycline 100 mg PO BID #14 capsule 10/06/16 [Rx] PredniSONE 10 mg PO DAILY 8 Days 10/06/16 [Rx] Allergies/Adverse Reactions: Allergies amitriptyline Allergy (Unknown, Verified 10/05/16 14:44) unknown PATIENT UNSURE OF REACTION- NO REACTIONS LISTED ON ECW Date of admission: 10/05/16 13:35 Primary care physician: Patt Shin CNP Consults: 10/05/16 16:35 Consult to Nutrition [CONS] Routine Comment: failure to thrive, dehydration Consulting Provider: NUTRITION Reason for Dietary Consult: Supplemental Nutrition Consult to Occupational Therapy [CONS] Routine Comment: Evaluate, develop and implement POC Consult to Physical Therapy [CONS] Routine Comment: Evaluate, develop and implement POC Consult to [employer] [CONS] Routine Reason For Exam: Reason for SW Consult: Failure to thrive, not eating, not drinking. Gets home health. Discharging clinician: Scott Royal Anticipated date of discharge: 10/06/16 - Patient Status Disposition: Home, Self-Care Condition: Good Functional capacity at discharge: uses cane/walker Overall status at discharge: patient is progressing back to baseline - Discharge Instructions Instructions: Doxycycline (By mouth), Prednisone (By mouth), Heart Failure (DC) , Chronic Obstructive Pulmonary Disease (DC) Follow Up With: Patt Shin CNP [Primary Care Provider] - 10/13/16 9:50 am () - Diet and Activity Activity: wear oxygen at all times Diet: diabetic diet, low fat, low cholesterol, low salt diet Hospital course: Mr. Mistry is a 80 year old male with history of COPD and chronic respiratory failure on home oxygen was observed in hospital after presenting with nausea and vomiting and shortness of breath. His nausea and vomiting improved soon after coming in after receiving Zofran. Since then he has been eating well. He was diagnosed with acute exacerbation of COPD and was treated with IV steroids, O2 supplementation and bronchodilator nebs. Since then he has been improving and is feeling much better. At this time his examination does not reveal any significant wheezing. Is oxygenating well and should be stable to be discharged home on home oxygen baseline. He will complete a short course of steroid taper and levofloxacin for his COPD exacerbation. Initially there was also concern for possible congestive heart failure. BNP was elevated slightly. However patient does not have any signs or symptoms of heart failure. - Time Spent with Patient Total time spent providing and/or coordinating discharge services: Less than 30 minutes (25 min) - Constitutional Vitals: Temp Pulse Resp BP Pulse Ox 98.3 F 61 18 106/51 99 10/06/16 07:51 10/06/16 07:51 10/06/16 07:55 10/06/16 07:51 10/06/16 07:55 General appearance: Present: A&O X 3, pleasant, no acute distress, answers questions appropriately - Respiratory Respiratory exam: Present: prolonged expiratory phase, wheezes. Absent: accessory muscle use, rales, rhonchi - Cardiovascular Cardiovascular exam: Present: RRR, +S1, +S2. Absent: diastolic murmur, gallop, rubs, systolic murmur - GI/Abdominal GI/Abdominal exam: Present: normal bowel sounds, soft, no peritoneal signs. Absent: distended, tenderness - Extremities Exam Extremities exam: Present: warm, radial pulses palpable and symetrical. Absent : calf tenderness, cyanotic, pedal edema - Attending Attestation This document has been at least partially created by y prime recognition technology by Dr. Royal. Errors in grammar, wording or other phrases may exist. If errors are found after the documentation is signed, they will be addressed individually in the addendum section of this document when appropriate.
[2016-10-06 11:16] VITALS: BP 119/73
--- NOTE | 2016-10-06 13:50 | Physician Discharge Referral ---
Home Health/Hosp Referral Info Transfer to: Home Health Provider in Charge Post Discharge: PCP - Diagnosis (1) Acute exacerbation of chronic obstructive pulmonary disease (COPD) Priority: Primary Status: Acute (2) Dehydration Priority: Secondary Status: Acute (3) Elevated troponin Priority: Secondary Status: Acute (4) Failure to thrive Priority: Secondary Status: Acute (5) Hypoxia Priority: Secondary Status: Acute (6) Nausea Priority: Secondary Status: Acute (7) Nausea and vomiting Priority: Secondary Status: Acute (8) Shortness of breath Priority: Secondary Status: Acute (9) Chronic respiratory failure Priority: Secondary Status: Chronic (10) Diabetes mellitus Priority: Secondary Status: Chronic - Respiratory Orders Oxygen / L per min (2) Smoking Cessation: Smoking cessation has been advised. For more information, call the [employer] Quit Line at [phone]-NOW. - Diet/Nutrition Diet/Nutrition Orders: Cardiac (and Diabetic) - Activity Activity Orders: Walker - Services Needed Following services are medically necessary services: Nursing, Physical Therapy, Occupational Therapy - Transfer Medications Prescriptions: Doxycycline 100 mg PO BID #14 capsule PredniSONE 10 mg PO DAILY 8 Days Home Medications: Amiodarone [Cordarone] 200 mg PO DAILY 09/19/15 [History] Calcium Carbonate/Vitamin D3 [Calcium 500-Vit D3 400 Tablet] 1 tab PO DAILY [History] Ferrous Sulfate [Iron] 325 mg PO DAILY 09/19/15 [History] Furosemide [Lasix] 40 mg PO DAILY 09/19/15 [History] Gabapentin [Neurontin] 800 mg PO TID 09/19/15 [History] Linagliptin [Tradjenta] 5 mg PO DAILY 09/19/15 [History] Melatonin [Melatin] 3 mg PO HS 09/19/15 [History] Omeprazole [PriLOSEC] 20 mg PO DAILY 09/19/15 [History] Potassium Chloride [Klor-Con Sprinkle] 10 meq PO BID 09/19/15 [History] Rivaroxaban [Xarelto] 20 mg PO DAILY 09/19/15 [History] Sertraline [Zoloft] 100 mg PO DAILY 09/19/15 [History] TraMADol [Ultram] 50 mg PO TID PRN 09/19/15 [History] Finasteride [Proscar] 5 mg PO DAILY #30 tablet 11/05/15 [Rx] Hydrocodone/Acetaminophen [[place] 5-325 Tablet] 1 tab PO Q6H PRN #12 tab [Rx] Atorvastatin [Lipitor] 40 mg PO HS 05/17/16 [History] Cyanocobalamin (Vitamin B-12) [Vitamin B12] 1,000 mcg PO DAILY 05/17/16 [History ] Donepezil [Aricept] 10 mg PO HS 05/17/16 [History] Insulin ASPART [Novolog] 2 - 12 unit SQ TIDWM MDD per sliding scale 05/17/16 [ History] Insulin Glargine [Lantus] 14 unit SQ QAM 05/17/16 [History] Ipratropium/Albuterol Neb [Duoneb] 3 ml IH Q6HR PRN 05/17/16 [History] Ondansetron HCl [Zofran] 4 mg PO BID PRN 05/17/16 [History] Oxygen 1 each .ROUTE AD 05/17/16 [History] Ranolazine [Ranexa] 500 mg PO BID 05/17/16 [History] Metoprolol XL (24 HR) Succ [Toprol Xl] 12.5 mg PO DAILY 10/05/16 [History] Doxycycline 100 mg PO BID #14 capsule 10/06/16 [Rx] PredniSONE 10 mg PO DAILY 8 Days 10/06/16 [Rx] Allergies/Adverse Reactions: Allergies amitriptyline Allergy (Unknown, Verified 10/05/16 14:44) unknown PATIENT UNSURE OF REACTION- NO REACTIONS LISTED ON ECW Certification: Further, I certify that my clinical findings support that this patient is homebound (i.e. absences from home require considerable and taxing effort and are for medical reasons or restorationism services or infrequently or short duration when for other reasons) because: Homebound Reason: Patient requires assistance of a person or device to safely leave home Attestation: My signature below is to certify that this patient is under my care and that I, or nurse practitioner, or a physician's bilingual sales assistant working with me, has a face-to -face encounter with this patient.
--- NOTE | 2016-10-06 17:36 | Electrocardiograph Report ---
[place] [id number] Test Date: 2016-10-05 Pat Name: Tom Mistry Department: [id number] Room: 2A43 Gender: M Edi Specialist: : [id number] Requested By: Ray Saba Order Number: [id number] Reading MD: Glory Whiting Measurements Intervals [place] Rate: 75 P: 20 IA: 173 QRS: -69 QRSD: 144 T: 90 QT: 464 QTc: 494 Interpretive Statements ELECTRONIC VENTRICULAR PACEMAKER ABNORMAL RHYTHM ECG Electronically Signed On 10-06-2016 17:34:49 EST by Glory Whiting
== END 2016-10-06 15:13 | disposition home or self-care (01) ==
LOC: 2ANU 11:09 → EMEROO 11:09 → SUATTDRO 13:35 → 2ANU 13:53
PROVIDERS: ADMIT Internal Medicine; ATTEND Internal Medicine

== ENCOUNTER 2016-11-07 13:37 | Inpatient (IN) ==
[2016-11-07] MEDS ORDERED: methylPREDNISolone 125 MG/2 ML VIAL IVP ONE (13:50)
[2016-11-07] MEDS ORDERED: Ipratropium/Albuterol Neb 3 ML IH ONE (13:50)
[2016-11-07 14:06] LABS: Basophils % 0.2 %; Eosinophils # 0.1 K/mcL (0.0-0.6); Eosinophils % 0.6 %; Hematocrit 42.8 % (37.5-50.1); Hemoglobin 13.6 g/dL (12.9-16.9); Immature Granulocytes % 0.5 % (0-4); Lymphocytes # 1.4 K/mcL (0.6-4.6); Lymphocytes % 17.4 %; Mean Corpuscular HGB Conc 31.8 g/dL (31.6-35.5); Mean Corpuscular Hemoglobin 28.5 pg (28.0-33.3); Mean Corpuscular Volume 89.5 fL (83.0-100.0); Mean Platelet Volume 9.6 fL (9.4-12.4); Monocytes # 0.7 K/mcL (0.0-1.3); Monocytes % 8.6 %; Neutrophils # 5.8 K/mcL (1.6-8.9); Platelet Count 223 K/mcL (140-400); Red Blood Count 4.78 M/mcL (4.19-5.50); Red Cell Distribution Width 15.5 % (11.5-14.5); Segmented Neutrophils % 72.7 %
[2016-11-07 14:10] LABS: INR 1.5; Prothrombin Time 16.6 Seconds (9.4-12.1)
[2016-11-07 14:13] LABS: Activated Partial Thrombo Time 35.1 Seconds (26.0-36.0)
--- NOTE | 2016-11-07 14:16 | Emergency Department Note ---
Disposition Clinical Impression: Generalized weakness, Elevated troponin I level Failure to thrive Qualifiers: Failure to thrive age range: in adult Qualified Code(s): R62.7 - Adult failure to thrive Disposition: Admitted As Inpatient Condition: Fair Referrals: NO,PCP [Primary Care Provider] - Forms: ED Satisfaction Letter Time of Disposition: 16:58 Weakness HPI - General Chief complaint: ED Nausea/Vomiting/Diarrhea Stated complaint: Flu Like Symptoms Time Seen by Provider: 11/07/16 13:49 Source: EMS Mode of arrival: EMS Limitations: age Nursing Notes Reviewed: Yes Vital Signs Reviewed: Yes - History of Present Illness HPI Narrative: 72-year-old male with history of generalized weakness, failure to thrive, presents with same complaints of the last 3-4 days he has been progressively worse, his had to call EMS because she is unable to lift him off the ground today. He was laying down. No trauma or fall. He was just unable to walk and get up. She has no focal deficits one side or the other, no slurred speech or facial droop. Patient denies any chest pain right now. Pt Subjective Complaint: generalized weakness/fatigue Onset (ago): day(s) Duration: gradually worsening Location: generalized Migration: none Pain Severity: none, moderate Pain Scale: 7 If pain, quality: tingling Improves with: none Worsens with: none - Related Data Home Medications Medication Instructions Recorded Confirmed Amiodarone [Cordarone] 200 mg PO DAILY 09/19/15 10/05/16 Calcium Carbonate/Vitamin D3 1 tab PO DAILY 09/19/15 10/05/16 [Calcium 500-Vit D3 400 Tablet] Ferrous Sulfate [Iron] 325 mg PO DAILY 09/19/15 10/05/16 Furosemide [Lasix] 40 mg PO DAILY 09/19/15 10/05/16 Gabapentin [Neurontin] 800 mg PO TID 09/19/15 10/05/16 Linagliptin [Tradjenta] 5 mg PO DAILY 09/19/15 10/05/16 Melatonin [Melatin] 3 mg PO HS 09/19/15 10/05/16 Omeprazole [PriLOSEC] 20 mg PO DAILY 09/19/15 10/05/16 Potassium Chloride [Klor-Con 10 meq PO BID 09/19/15 10/05/16 Sprinkle] Rivaroxaban [Xarelto] 20 mg PO DAILY 09/19/15 10/05/16 Sertraline [Zoloft] 100 mg PO DAILY 09/19/15 10/05/16 TraMADol [Ultram] 50 mg PO TID PRN 09/19/15 10/05/16 Atorvastatin [Lipitor] 40 mg PO HS 05/17/16 10/05/16 Cyanocobalamin (Vitamin B-12) 1,000 mcg PO DAILY 05/17/16 10/05/16 [Vitamin B12] Donepezil [Aricept] 10 mg PO HS 05/17/16 10/05/16 Insulin ASPART [Novolog] 2 - 12 unit SQ TIDWM MDD per 05/17/16 10/05/16 sliding scale Insulin Glargine [Lantus] 14 unit SQ QAM 05/17/16 10/05/16 Ipratropium/Albuterol Neb [Duoneb] 3 ml IH Q6HR PRN 05/17/16 10/05/16 Ondansetron HCl [Zofran] 4 mg PO BID PRN 05/17/16 10/05/16 Oxygen 1 each .ROUTE AD 05/17/16 10/05/16 Ranolazine [Ranexa] 500 mg PO BID 05/17/16 10/05/16 Metoprolol XL (24 HR) Succ [Toprol 12.5 mg PO DAILY 10/05/16 10/05/16 Xl] Previous Rx's Medication Instructions Recorded Finasteride [Proscar] 5 mg PO DAILY #30 tablet 11/05/15 Hydrocodone/Acetaminophen [[place] 1 tab PO Q6H PRN #12 tab 12/12/15 5-325 Tablet] Doxycycline 100 mg PO BID #14 capsule 10/06/16 PredniSONE 10 mg PO DAILY 8 Days 10/06/16 Allergies Allergy/AdvReac Type Severity Reaction Status Date / Time amitriptyline Allergy Unknown unknown Verified 11/07/16 13:44 Review of Systems: All systems were reviewed with historian and negative except as per below, or as documented in the HPI. Constitutional: +weight loss Eyes: Denies: vision changes, eye pain ENT: Denies: nasal congestion, sore throat CV: Denies: chest pain, palpitations Resp: coughDenies: dyspnea, wheezes, hemoptysis GI: Denies: abdominal pain, N/V/D/C Denies: dysuria, hematuria MSK: Denies: back pain, neck pain, extremity pain Skin: Denies: new rashes, new lesions Neuro: weakness Denies: HORN, sensory changes, gait difficulty Psych: Denies: anxiety, depression All systems ED: reviewed and negative except as stated. Past Medical History - Past Medical History Medical history: Reports: atrial fibrillation, COPD, coronary artery disease, DVT, diabetes, GERD, hyperlipidemia, hypertension, myocardial infarction Surgical history: Reports: angioplasty/stent, pacemaker/AICD Psychiatric history: Reports: depression - Social History Smoking Status: Current every day smoker Smokeless Tobacco Status: No Alcohol use: Reports: none Drug use: Reports: none Physical Exam Constitutional: An frail cachectic male in no acute distress, vital signs stable HEENT: NCAT, sclera anicteric, PERRLA bilaterally, normal external ears bilaterally, nasal septum nondeviated, average dentition, mucus membranes dry Neck: normal inspection, neck is supple, trachea midline Resp: normal chest inspection, CTA bilaterally, no resp distress CV: Pacemaker in place the right chest, GI: normal inspection, Soft, NTND, BS present Neuro: A&O3, no gross motor or sensory deficits bilaterally MSK: normal inspection, bilateral UE and LE with normal ROM Skin: No rashes, skin warm, dry, intact - General Limitations: age General appearance: alert, in no apparent distress Course Course Narrative: Male with generalized weakness, we will check urinalysis chest x-ray basic lab work including flu swab lites fluid rehydrate reassess. - Reevaluation(s) Reevaluation #1: Admit to medicine service, Dr. Diaz for generalized weakness, failure to thrive , difficulty and unable to ambulate in the emergency department. Time: 16:57 Vital Signs Temperature 97.6 F 11/07/16 13:39 Pulse Rate 63 11/07/16 13:39 Respiratory Rate 18 11/07/16 13:39 Blood Pressure 124/55 11/07/16 13:39 O2 Sat by Pulse Oximetry 97 11/07/16 13:39 Temperature 97.6 F 11/07/16 13:39 Pulse Rate 61 11/07/16 16:06 Respiratory Rate 17 11/07/16 16:06 Blood Pressure 131/76 11/07/16 16:06 O2 Sat by Pulse Oximetry 98 11/07/16 16:06 Oxygen Delivery Oxygen Delivery Room Air Weakness - Differential Diagnosis Differential Diagnosis: Likely: acute myocardial infarction, sepsis/infection, metabolic - Medical Records Medical records reviewed: Yes I reviewed the patient's medical records. - Lab Data Lab results reviewed: Yes I reviewed the patient's lab results. Result diagrams: 11/07/16 13:55 11/07/16 13:55 Lab Results 11/07/16 11/07/16 11/07/16 Range/Units 13:55 13:55 13:55 WBC 8.0 (4.3-11.1) K/mcL RBC 4.78 (4.19-5.50) M/mcL Hgb 13.6 (12.9-16.9) g/dL Hct 42.8 (37.5-50.1) % MCV 89.5 (83.0-100.0) fL MCH 28.5 (28.0-33.3) pg MCHC 31.8 (31.6-35.5) g/dL RDW 15.5 H (11.5-14.5) % Plt Count 223 (140-400) K/mcL MPV 9.6 (9.4-12.4) fL Immature Gran % 0.5 (0-4) % Seg Neutrophils % 72.7 % Lymphocytes % 17.4 % Monocytes % 8.6 % Eosinophils % 0.6 % Basophils % 0.2 % Neutrophils # 5.8 (1.6-8.9) K/mcL Lymphocytes # 1.4 (0.6-4.6) K/mcL Monocytes # 0.7 (0.0-1.3) K/mcL Eosinophils # 0.1 (0.0-0.6) K/mcL Basophils # 0.0 (0.0-0.2) K/mcL PT 16.6 H (9.4-12.1) Seconds INR 1.5 APTT 35.1 (26.0-36.0) Seconds Sodium 140 (136-145) mEq/L Potassium 3.9 (3.5-4.5) mEq/L Chloride 97 L (98-109) mEq/L Carbon Dioxide 26 (19-29) mEq/L BUN 18 (8-26) mg/dL Creatinine 1.23 (0.72-1.25) mg/dL Est GFR ( Amer) > 60 (> 60) Est GFR (Non-Af Amer) 57 L (> 60) BUN/Creatinine Ratio 15 (6-26) Glucose 179 H (70-99) mg/dL Calculated Osmolality 296 (280-300) Calcium 9.1 (8.6-10.8) mg/dL Creatine Kinase 43 (30-200) Units/L Troponin I (0-0.03) ng/mL Urine Color (Yellow) Urine Clarity (Clear) Urine pH (5.0-8.0) pH Units Ur Specific [place] (1.010-1.025) Urine Protein (Neg-Trace) mg/dL Urine Glucose (UA) (Normal) mg/dL Urine Ketones (Negative) mg/dL Urine Blood (Negative) Urine Nitrite (Negative) Urine Bilirubin (Negative) Urine Urobilinogen (Normal) mg/dL Ur Leukocyte Esterase (Negative) Urine Microscopic RBC (0-3) per hpf Urine Microscopic WBC (0-3) per hpf Ur Squamous Epith Cells (None-Few) per lpf Urine Bacteria (None-Few) per hpf Hyaline Casts (None-Few) per lpf Ur Culture Indicated? (NO) 11/07/16 11/07/16 Range/Units 13:55 16:17 WBC (4.3-11.1) K/mcL RBC (4.19-5.50) M/mcL Hgb (12.9-16.9) g/dL Hct (37.5-50.1) % MCV (83.0-100.0) fL MCH (28.0-33.3) pg MCHC (31.6-35.5) g/dL RDW (11.5-14.5) % Plt Count (140-400) K/mcL MPV (9.4-12.4) fL Immature Gran % (0-4) % Seg Neutrophils % % Lymphocytes % % Monocytes % % Eosinophils % % Basophils % % Neutrophils # (1.6-8.9) K/mcL Lymphocytes # (0.6-4.6) K/mcL Monocytes # (0.0-1.3) K/mcL Eosinophils # (0.0-0.6) K/mcL Basophils # (0.0-0.2) K/mcL PT (9.4-12.1) Seconds INR APTT (26.0-36.0) Seconds Sodium (136-145) mEq/L Potassium (3.5-4.5) mEq/L Chloride (98-109) mEq/L Carbon Dioxide (19-29) mEq/L BUN (8-26) mg/dL Creatinine (0.72-1.25) mg/dL Est GFR ( Amer) (> 60) Est GFR (Non-Af Amer) (> 60) BUN/Creatinine Ratio (6-26) Glucose (70-99) mg/dL Calculated Osmolality (280-300) Calcium (8.6-10.8) mg/dL Creatine Kinase (30-200) Units/L Troponin I 0.08 H* (0-0.03) ng/mL Urine Color Dark Yellow (Yellow) Urine Clarity Cloudy A (Clear) Urine pH 5.5 (5.0-8.0) pH Units Ur Specific [place] 1.020 (1.010-1.025) Urine Protein Trace (Neg-Trace) mg/dL Urine Glucose (UA) Normal (Normal) mg/dL Urine Ketones 15 H (Negative) mg/dL Urine Blood Negative (Negative) Urine Nitrite Negative (Negative) Urine Bilirubin Moderate H (Negative) Urine Urobilinogen Normal (Normal) mg/dL Ur Leukocyte Esterase Negative (Negative) Urine Microscopic RBC 0-3 (0-3) per hpf Urine Microscopic WBC 0-3 (0-3) per hpf Ur Squamous Epith Cells Moderate H (None-Few) per lpf Urine Bacteria None Seen (None-Few) per hpf Hyaline Casts None Seen (None-Few) per lpf Ur Culture Indicated? NO (NO) - Radiology Data Radiology results reviewed: Yes I reviewed the patient's radiology results. Chest X-Ray 11/07/16 13:49 IMPRESSION: No acute process. D/ / 11/07/2016 14:36:09 Marco A Schmidt MD / peterson Interpreting Provider: Marco A Schmidt MD Head CT 11/07/16 15:27 IMPRESSION: No acute intracranial abnormality. D/ / Jake Roldan MD / Jake Roldan MD Interpreting Provider: Jake Roldan MD - EKG Data EKG attestation: Yes I reviewed and interpreted this EKG. EKG shows normal: sinus rhythm Rate: normal (65 bpm [place] 154 QRS 138 QTc 491 electrical atrial and ventricular pace, new T-wave inversions in V2 V3 V4 V5 V6) T wave inversions noted in: v2, v3, v4, v5, v6 Interpretation: nonspecific ST-T wave changes - Core Measures AMI Core Measures Followed: Yes
[2016-11-07 14:17] LABS: BUN/Creatinine Ratio 15 (6-26); Blood Urea Nitrogen 18 mg/dL (8-26); Calcium 9.1 mg/dL (8.6-10.8); Carbon Dioxide 26 mEq/L (19-29); Chloride 97 mEq/L (98-109); Creatine Kinase 43 Units/L (30-200); Glucose 179 mg/dL (70-99); Osmolality,Calculated 296 (280-300); Potassium 3.9 mEq/L (3.5-4.5); Sodium 140 mEq/L (136-145); eGFR For African Americans > 60 (> 60); eGFR For Non-African Americans 57 (> 60)
[2016-11-07] MEDS ORDERED: Aspirin 81 MG TAB.CHEW PO ONE (14:45)
[2016-11-07 16:19] LABS: Bilirubin,Urine Moderate (Negative); Blood,Urine Negative (Negative); Clarity,Urine Cloudy (Clear); Color,Urine Dark Yellow (Yellow); Glucose,Urine (UA) Normal (Normal); Ketones,Urine 15 mg/dL (Negative); Leukocyte Esterase,Urine Negative (Negative); Nitrite,Urine Negative (Negative); PH,Urine 5.5 pH Units (5.0-8.0); Protein,Urine Trace mg/dL (Neg-Trace); Urobilinogen,Urine Normal (Normal)
[2016-11-07 16:21] LABS: Bacteria,Urine None Seen per hpf (None-Few); Hyaline Casts,Urine None Seen per lpf (None-Few); RBC,Urine 0-3 per hpf (0-3); Squamous Epithelial Cell,Urine Moderate per lpf (None-Few); WBC,Urine 0-3 per hpf (0-3)
--- NOTE | 2016-11-07 17:07 | Emergency Department Note ---
Disposition Clinical Impression: Generalized weakness, Elevated troponin I level Failure to thrive Qualifiers: Failure to thrive age range: in adult Qualified Code(s): R62.7 - Adult failure to thrive Disposition: Admitted As Inpatient Condition: Fair Referrals: NO,PCP [Primary Care Provider] - Forms: ED Satisfaction Letter General Adult HPI - General Chief complaint: ED Nausea/Vomiting/Diarrhea Stated complaint: Flu Like Symptoms Time Seen by Provider: 11/07/16 13:49 Source: patient, EMS Mode of arrival: EMS Limitations: age - History of Present Illness Pain Scale: 7 - Related Data Home Medications Medication Instructions Recorded Confirmed Amiodarone [Cordarone] 200 mg PO DAILY 09/19/15 10/05/16 Calcium Carbonate/Vitamin D3 1 tab PO DAILY 09/19/15 10/05/16 [Calcium 500-Vit D3 400 Tablet] Ferrous Sulfate [Iron] 325 mg PO DAILY 09/19/15 10/05/16 Furosemide [Lasix] 40 mg PO DAILY 09/19/15 10/05/16 Gabapentin [Neurontin] 800 mg PO TID 09/19/15 10/05/16 Linagliptin [Tradjenta] 5 mg PO DAILY 09/19/15 10/05/16 Melatonin [Melatin] 3 mg PO HS 09/19/15 10/05/16 Omeprazole [PriLOSEC] 20 mg PO DAILY 09/19/15 10/05/16 Potassium Chloride [Klor-Con 10 meq PO BID 09/19/15 10/05/16 Sprinkle] Rivaroxaban [Xarelto] 20 mg PO DAILY 09/19/15 10/05/16 Sertraline [Zoloft] 100 mg PO DAILY 09/19/15 10/05/16 TraMADol [Ultram] 50 mg PO TID PRN 09/19/15 10/05/16 Atorvastatin [Lipitor] 40 mg PO HS 05/17/16 10/05/16 Cyanocobalamin (Vitamin B-12) 1,000 mcg PO DAILY 05/17/16 10/05/16 [Vitamin B12] Donepezil [Aricept] 10 mg PO HS 05/17/16 10/05/16 Insulin ASPART [Novolog] 2 - 12 unit SQ TIDWM MDD per 05/17/16 10/05/16 sliding scale Insulin Glargine [Lantus] 14 unit SQ QAM 09/17/16 02/05/17 Ipratropium/Albuterol Neb [Duoneb] 3 ml IH Q6HR PRN 05/17/16 10/05/16 Ondansetron HCl [Zofran] 4 mg PO BID PRN 05/17/16 10/05/16 Oxygen 1 each .ROUTE AD 05/17/16 10/05/16 Ranolazine [Ranexa] 500 mg PO BID 05/17/16 10/05/16 Metoprolol XL (24 HR) Succ [Toprol 12.5 mg PO DAILY 10/05/16 10/05/16 Xl] Previous Rx's Medication Instructions Recorded Finasteride [Proscar] 5 mg PO DAILY #30 tablet 11/05/15 Hydrocodone/Acetaminophen [[place] 1 tab PO Q6H PRN #12 tab 12/12/15 5-325 Tablet] Doxycycline 100 mg PO BID #14 capsule 10/06/16 PredniSONE 10 mg PO DAILY 8 Days 10/06/16 Allergies Allergy/AdvReac Type Severity Reaction Status Date / Time amitriptyline Allergy Unknown unknown Verified 11/07/16 13:44 Past Medical History - Past Medical History Medical history: Reports: atrial fibrillation, COPD, coronary artery disease, DVT, diabetes, GERD, hyperlipidemia, hypertension, myocardial infarction Surgical history: Reports: angioplasty/stent, pacemaker/AICD Psychiatric history: Reports: depression - Social History Smoking Status: Current every day smoker Smokeless Tobacco Status: No Alcohol use: Reports: none Drug use: Reports: none Physical Exam - General Limitations: age General appearance: alert, in no apparent distress Course - Reevaluation(s) Reevaluation #1: I saw the patient with the resident, Dr. Rao. Patient presents with generalized weakness. is unable to take care of him at home. She is not able to get him up. He is not giving me any focal symptoms. There are no focal findings on neuro exam. The only lab abnormalities and elevated troponin but this patient's troponin is always elevated so not sure the significance of that. We will admitted to the hospital for failure to thrive and weakness. He has been accepted by the hospitalist already. Time: 17:08 Vital Signs Temperature 97.6 F 11/07/16 13:39 Pulse Rate 63 11/07/16 13:39 Respiratory Rate 18 11/07/16 13:39 Blood Pressure 124/55 11/07/16 13:39 O2 Sat by Pulse Oximetry 97 11/07/16 13:39 Temperature 97.6 F 11/07/16 13:39 Pulse Rate 61 11/07/16 16:06 Respiratory Rate 20 11/07/16 16:48 Blood Pressure 131/76 11/07/16 16:06 O2 Sat by Pulse Oximetry 96 11/07/16 16:48 Oxygen Delivery Oxygen Delivery Room Air Medical Decision Making - Lab Data Result diagrams: 11/07/16 13:55 11/07/16 13:55 Lab Results 11/07/16 11/07/16 11/07/16 Range/Units 13:55 13:55 13:55 WBC 8.0 (4.3-11.1) K/mcL RBC 4.78 (4.19-5.50) M/mcL Hgb 13.6 (12.9-16.9) g/dL Hct 42.8 (37.5-50.1) % MCV 89.5 (83.0-100.0) fL MCH 28.5 (28.0-33.3) pg MCHC 31.8 (31.6-35.5) g/dL RDW 15.5 H (11.5-14.5) % Plt Count 223 (140-400) K/mcL MPV 9.6 (9.4-12.4) fL Immature Gran % 0.5 (0-4) % Seg Neutrophils % 72.7 % Lymphocytes % 17.4 % Monocytes % 8.6 % Eosinophils % 0.6 % Basophils % 0.2 % Neutrophils # 5.8 (1.6-8.9) K/mcL Lymphocytes # 1.4 (0.6-4.6) K/mcL Monocytes # 0.7 (0.0-1.3) K/mcL Eosinophils # 0.1 (0.0-0.6) K/mcL Basophils # 0.0 (0.0-0.2) K/mcL PT 16.6 H (9.4-12.1) Seconds INR 1.5 APTT 35.1 (26.0-36.0) Seconds Sodium 140 (136-145) mEq/L Potassium 3.9 (3.5-4.5) mEq/L Chloride 97 L (98-109) mEq/L Carbon Dioxide 26 (19-29) mEq/L BUN 18 (8-26) mg/dL Creatinine 1.23 (0.72-1.25) mg/dL Est GFR ( Amer) > 60 (> 60) Est GFR (Non-Af Amer) 57 L (> 60) BUN/Creatinine Ratio 15 (6-26) Glucose 179 H (70-99) mg/dL Calculated Osmolality 296 (280-300) Calcium 9.1 (8.6-10.8) mg/dL Creatine Kinase 43 (30-200) Units/L Troponin I (0-0.03) ng/mL Urine Color (Yellow) Urine Clarity (Clear) Urine pH (5.0-8.0) pH Units Ur Specific [place] (1.010-1.025) Urine Protein (Neg-Trace) mg/dL Urine Glucose (UA) (Normal) mg/dL Urine Ketones (Negative) mg/dL Urine Blood (Negative) Urine Nitrite (Negative) Urine Bilirubin (Negative) Urine Urobilinogen (Normal) mg/dL Ur Leukocyte Esterase (Negative) Urine Microscopic RBC (0-3) per hpf Urine Microscopic WBC (0-3) per hpf Ur Squamous Epith Cells (None-Few) per lpf Urine Bacteria (None-Few) per hpf Hyaline Casts (None-Few) per lpf Ur Culture Indicated? (NO) 11/07/16 11/07/16 Range/Units 13:55 16:17 WBC (4.3-11.1) K/mcL RBC (4.19-5.50) M/mcL Hgb (12.9-16.9) g/dL Hct (37.5-50.1) % MCV (83.0-100.0) fL MCH (28.0-33.3) pg MCHC (31.6-35.5) g/dL RDW (11.5-14.5) % Plt Count (140-400) K/mcL MPV (9.4-12.4) fL Immature Gran % (0-4) % Seg Neutrophils % % Lymphocytes % % Monocytes % % Eosinophils % % Basophils % % Neutrophils # (1.6-8.9) K/mcL Lymphocytes # (0.6-4.6) K/mcL Monocytes # (0.0-1.3) K/mcL Eosinophils # (0.0-0.6) K/mcL Basophils # (0.0-0.2) K/mcL PT (9.4-12.1) Seconds INR APTT (26.0-36.0) Seconds Sodium (136-145) mEq/L Potassium (3.5-4.5) mEq/L Chloride (98-109) mEq/L Carbon Dioxide (19-29) mEq/L BUN (8-26) mg/dL Creatinine (0.72-1.25) mg/dL Est GFR ( Amer) (> 60) Est GFR (Non-Af Amer) (> 60) BUN/Creatinine Ratio (6-26) Glucose (70-99) mg/dL Calculated Osmolality (280-300) Calcium (8.6-10.8) mg/dL Creatine Kinase (30-200) Units/L Troponin I 0.08 H* (0-0.03) ng/mL Urine Color Dark Yellow (Yellow) Urine Clarity Cloudy A (Clear) Urine pH 5.5 (5.0-8.0) pH Units Ur Specific [place] 1.020 (1.010-1.025) Urine Protein Trace (Neg-Trace) mg/dL Urine Glucose (UA) Normal (Normal) mg/dL Urine Ketones 15 H (Negative) mg/dL Urine Blood Negative (Negative) Urine Nitrite Negative (Negative) Urine Bilirubin Moderate H (Negative) Urine Urobilinogen Normal (Normal) mg/dL Ur Leukocyte Esterase Negative (Negative) Urine Microscopic RBC 0-3 (0-3) per hpf Urine Microscopic WBC 0-3 (0-3) per hpf Ur Squamous Epith Cells Moderate H (None-Few) per lpf Urine Bacteria None Seen (None-Few) per hpf Hyaline Casts None Seen (None-Few) per lpf Ur Culture Indicated? NO (NO) Attestation Statement - Attestation Attestation: I, Dr. Blake, examined this patient [id number] and my medical decision- making was reviewed with Dr. Rao, Resident Physician. I agree with the documented findings, disposition and treatment plan as described except to the extent set forth below. Please see my progress notes for details.
[2016-11-07] MEDS ORDERED: Naloxone 0.4 MG/ML INJ IVP PRN (18:00)
[2016-11-07] MEDS ORDERED: Ondansetron ODT 4 MG TAB.RAPDIS PO PRN (18:02)
[2016-11-07] MEDS ORDERED: D5% in Water 1,000 ML IV PRN (18:06)
[2016-11-07] MEDS ORDERED: Dextrose Gel 15 GM PO PRN ×2 (18:06)
[2016-11-07] MEDS ORDERED: *HR* Dextrose 50 % in Water (Syg) 50 ML SYRINGE IVP PRN (18:06)
--- NOTE | 2016-11-07 19:13 | Internal Med History&Physical ---
Date of Encounter: 11/07/16 Time of Encounter: 18:00 Assessment and Plan (1) Elevated troponin I level Current visit: Yes Status: Acute 1 this appears to be chronic, will continue to cycle cardiac troponins-consult cardiology as needed (2) Failure to thrive Current visit: Yes Status: Chronic 1 patient has been experiencing increasing weakness and lethargy anorexia with past few months. He states he has not had appetite and he has had weight loss. He lives at home with his and also has home health aide that comes and appears his stated. Patient is so weak at times of is unable to assist him up. Did place a social service consult for possible ECF placement 2 consult nutritional services for supplement recommendation 3 PT OT evaluation 4 fall precautions Qualifiers: Failure to thrive age range: in adult Qualified Code(s): R62.7 - Adult failure to thrive (3) Atrial fibrillation Current visit: No Status: Chronic 1 patient has history of atrial fibrillation presently patient is rate controlled we will continue with amiodarone as well as xarelto Qualifiers: Atrial fibrillation type: paroxysmal Qualified Code(s): I48.0 - Paroxysmal atrial fibrillation (4) COPD (chronic obstructive pulmonary disease) Current visit: No Status: Chronic 1 patient has a history of COPD he does have oxygen at home apparently only uses it when necessary. Presently his saturation is 96% on room air the wheezes noted at this time. We will continue with oxygen as needed titrated to maintain SPO2 greater than 92% 2 dilators as needed Qualifiers: COPD type: unspecified COPD Qualified Code(s): J44.9 - Chronic obstructive pulmonary disease, unspecified (5) Diabetes mellitus Current visit: No Status: Chronic 1 she has a history of diabetes he has had poor oral intake will monitor blood sugars before meals at bedtime we will continue with nasal insulin right now may need only get a sliding scale if oral intake decreases. We will continue with sliding scale insulin as needed Qualifiers: Diabetes mellitus type: type 2 Diabetes mellitus complication status: with hyperglycemia Diabetes mellitus prison insulin use: without prison use Qualified Code(s): E11.65 - Type 2 diabetes mellitus with hyperglycemia (6) DVT prophylaxis Current visit: No Status: Acute 1 patient is on Xarelto (7) CAD (coronary artery disease) Current visit: No Status: Chronic 1 Pressly not having any chest pain we will continue with beta meera Renexa and statin Qualifiers: Coronary Disease-Associated Artery/Lesion type: [place] artery [place] vs. transplanted heart: [place] heart Associated angina: without angina Qualified Code(s): I25.10 - Atherosclerotic heart disease of [place] coronary artery without angina pectoris Internal Medicine - H&P: HPI Chief complaint: weakness Admitted From: Emergency Dept Plans for Post Hospital Care: Home History of present illness: Mr. Mistry is a 80 year old male past medical history of atrial fibrillation and COPD dementia and CHF EF 20% diabetes failure to drive. Information obtained mostly from medical records patient has a history of dementia. According to ED records patient has been experiencing generalized weakness, anorexia which has been going on for some time. He lives with his and has a home health aid Prepares his meals. He apparently did not feel well today and he laid down on the living room floor and would not get up. His was unable to have helped him follow-up and called EMS for assistance. He did not fall there was no trauma that he just was unable to get up and walk. On arrival to the ER the patient did not have any focal deficit slurred speech and facial droop chest pain or shortness of breath. Initial lab work did reveal an elevated troponin 0.08 rest of lab work was unremarkable and urine was negative chest x-rays clear. CT was without any acute intracranial abnormalities. He was admitted for further workup and evaluation. Presently patient states that he came to the hospital because he was sick and that he felt weak he presently denies any chest pain shortness of breath. Denies any history of nausea vomiting diarrhea fevers chills. He is hemodynamically stable this time. I reviewed this case with Dr. Diaz who agrees with plan Past Med Surg Social Fam HX - Past Medical History Medical history: atrial fibrillation, COPD, coronary artery disease, DVT, diabetes, GERD, hyperlipidemia, hypertension, myocardial infarction Psychiatric history: depression - Past Surgical History Surgical History: angioplasty/stent, pacemaker/AICD - Social History Smoking Status: Current every day smoker Smokeless Tobacco Status: No Alcohol use: none Drug use: none - Family History Father Family Member Ethnicity: Non- Hx Family Cardiac Disorders: Yes Hx Family Respiratory Disorders: Yes Hx Family Cancer: No Hx Family GI Disorders: No Hx Family Endocrine Disorder: Yes Hx Family Neuromuscular Disorders: No Hx Family Neurologic Disorders: No Hx Family HEENT Disorders: No Hx Family Autoimmune Disorders: No Internal Medicine - H&P: Meds Amiodarone [Cordarone] 200 mg PO DAILY 09/19/15 [History] Calcium Carbonate/Vitamin D3 [Calcium 500-Vit D3 400 Tablet] 1 tab PO DAILY [History] Ferrous Sulfate [Iron] 325 mg PO DAILY 09/19/15 [History] Furosemide [Lasix] 40 mg PO DAILY 09/19/15 [History] Gabapentin [Neurontin] 800 mg PO TID 09/19/15 [History] Linagliptin [Tradjenta] 5 mg PO DAILY 09/19/15 [History] Melatonin [Melatin] 3 mg PO HS 09/19/15 [History] Omeprazole [PriLOSEC] 20 mg PO DAILY 09/19/15 [History] Potassium Chloride [Klor-Con Sprinkle] 10 meq PO BID 09/19/15 [History] Rivaroxaban [Xarelto] 20 mg PO DAILY 09/19/15 [History] Sertraline [Zoloft] 100 mg PO DAILY 09/19/15 [History] TraMADol [Ultram] 50 mg PO TID PRN 09/19/15 [History] Finasteride [Proscar] 5 mg PO DAILY #30 tablet 11/05/15 [Rx] Atorvastatin [Lipitor] 40 mg PO HS 05/17/16 [History] Cyanocobalamin (Vitamin B-12) [Vitamin B12] 1,000 mcg PO DAILY 05/17/16 [History ] Donepezil [Aricept] 10 mg PO HS 05/17/16 [History] Insulin ASPART [Novolog] 2 - 12 unit SQ TIDWM MDD per sliding scale 05/17/16 [ History] Insulin Glargine [Lantus] 14 unit SQ QAM 05/17/16 [History] Ipratropium/Albuterol Neb [Duoneb] 3 ml IH Q6HR PRN 05/17/16 [History] Ondansetron HCl [Zofran] 4 mg PO BID PRN 05/17/16 [History] Oxygen 1 each .ROUTE AD 05/17/16 [History] Ranolazine [Ranexa] 500 mg PO BID 05/17/16 [History] Metoprolol XL (24 HR) Succ [Toprol Xl] 12.5 mg PO DAILY 10/05/16 [History] Allergies amitriptyline Allergy (Unknown, Verified 11/07/16 13:44) unknown PATIENT UNSURE OF REACTION- NO REACTIONS LISTED ON ECW ROS unobtainable: due to mental status All Systems PM: A 10-system review of systems was performed and is negative for pertinent findings except as documented above in the HPI. - Constitutional Vitals: Temp Pulse Resp BP Pulse Ox 97.6 F 61 18 119/71 96 11/07/16 13:39 11/07/16 16:06 11/07/16 17:53 11/07/16 17:53 11/07/16 16:48 General appearance: Present: A&O X 3, underweight - Head Head exam: Present: atraumatic, normocephalic - Neck Neck exam general surgery: Present: supple, trachea midline. Absent: lymphadenopathy - Respiratory Respiratory exam: Present: CTAB. Absent: accessory muscle use, rales, rhonchi, wheezes - Cardiovascular Cardiovascular exam: Present: RRR, +S1, +S2. Absent: diastolic murmur, gallop, rubs, systolic murmur - GI/Abdominal GI/Abdominal exam: Present: normal bowel sounds, soft, no peritoneal signs. Absent: distended, tenderness - Extremities Exam Extremities exam: Present: warm, radial pulses palpable and symetrical. Absent : calf tenderness, cyanotic, pedal edema - Neurological Exam Neurological exam: Present: CN II-XII intact, oriented X3, no focal deficits. Absent: pronater drift, facial droop, speech deficit - Skin Skin exam: Present: dry, intact Internal Med - H&P Results - Labs CBC & Chem 7: 11/07/16 13:55 11/07/16 13:55 - Diagnostic Studies Other Images Additional comments: Chest X-Ray 11/07/16 13:49 IMPRESSION: No acute process. D/ / 11/07/2016 14:36:09 Marco A Schmidt MD / peterson Interpreting Provider: Marco A Schmidt MD Head CT 11/07/16 15:27 IMPRESSION: No acute intracranial abnormality. D/ / Jake Roldan MD / Jake Roldan MD Interpreting Provider: Jake Roldan MD
[2016-11-07] MEDS ORDERED: Insulin LISPRO 300 UNITS/3 ML VIAL SQ SCH (21:00)
[2016-11-07] MEDS ORDERED: Ipratropium/Albuterol Neb 3 ML IH PRN (22:00)
[2016-11-07] MEDS: Ranolazine 500 MG TAB.ER.12H PO SCH (22:18)
[2016-11-07] MEDS: Melatonin 3 MG TABLET PO SCH (22:18)
[2016-11-07] MEDS: Gabapentin 400 MG CAPSULE PO SCH (22:19)
[2016-11-07] MEDS: Insulin DETEMIR 100 UNIT/ML X5UNITS SQ SCH (22:22)
[2016-11-08 01:12] LABS: Hematocrit 35.9 % (37.5-50.1); Immature Granulocytes % 0.4 % (0-4); Immature Platelets 5.2 % (1.1-6.1); Lymphocytes # 0.4 K/mcL (0.6-4.6); Lymphocytes % 7.1 %; Mean Corpuscular HGB Conc 32.9 g/dL (31.6-35.5); Mean Corpuscular Hemoglobin 28.8 pg (28.0-33.3); Mean Corpuscular Volume 87.6 fL (83.0-100.0); Mean Platelet Volume 9.8 fL (9.4-12.4); Monocytes # 0.1 K/mcL (0.0-1.3); Monocytes % 1.1 %; Neutrophils # 5.2 K/mcL (1.6-8.9); Platelet Count 216 K/mcL (140-400); Red Cell Distribution Width 15.1 % (11.5-14.5); Segmented Neutrophils % 91.4 %
[2016-11-08 01:13] LABS: Hemoglobin 11.8 g/dL (12.9-16.9)
[2016-11-08 01:25] LABS: Calcium 8.2 mg/dL (8.6-10.8); Potassium 4.1 mEq/L (3.5-4.5)
[2016-11-08] MEDS: Insulin LISPRO 300 UNITS/3 ML VIAL SQ SCH ×3 (10:26→21:11)
[2016-11-08] MEDS: CALCIUM CARBONATE PO SCH (10:27)
[2016-11-08] MEDS: VITAMIN D3 PO SCH (10:27)
[2016-11-08] MEDS: *HR* Rivaroxaban 10 MG TABLET PO SCH (10:32)
[2016-11-08] MEDS: Furosemide 40 MG TABLET PO SCH (10:32)
[2016-11-08] MEDS: Ranolazine 500 MG TAB.ER.12H PO SCH ×2 (10:32→20:16)
[2016-11-08] MEDS: Cyanocobalamin (B-12) 1,000 MCG TABLET PO SCH (10:32)
[2016-11-08] MEDS: *HR* Amiodarone 200 MG TABLET PO SCH (10:32)
[2016-11-08] MEDS: Metoprolol XL (24 HR) Succ 25 MG TAB.ER.24H PO SCH (10:32)
[2016-11-08] MEDS: Finasteride 5 MG TABLET PO SCH (10:32)
[2016-11-08] MEDS: Gabapentin 400 MG CAPSULE PO SCH ×3 (10:32→20:17)
--- NOTE | 2016-11-08 16:23 | Internal Med Progress Note ---
Date of Encounter: 11/08/16 Time of Encounter: 09:00 - Assessment and plan (1) Elevated troponin I level Current Visit: Yes Status: Acute Assessment and plan: Patient's old chart is reviewed. He has a chronic elevated troponin. 3 sets of troponin has been trended. No significant elevation. Patient has no chest pain or shortness of breath. (2) Generalized weakness Current Visit: Yes Status: Acute Assessment and plan: Etiology is undetermined. Patient has multiple chronic medical problems, his glucose level is high. Will optimize medical treatment. PTOT evaluation. Nutrition consult. (3) DVT prophylaxis Current Visit: No Status: Acute Assessment and plan: Patient is on xarelto (4) Tobacco abuse Current Visit: No Status: Acute Assessment and plan: Smoking cessation education done. Nicotine patch (5) Atrial fibrillation Current Visit: No Status: Chronic Assessment and plan: Heart rate is well controlled. Continue xarelto. Qualifiers: Atrial fibrillation type: paroxysmal Qualified Code(s): I48.0 - Paroxysmal atrial fibrillation (6) Diabetes mellitus Current Visit: No Status: Chronic Assessment and plan: Glucose is not well controlled. Will continue basal and sliding scale coverage. 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 His past medical history is significant for A. fib on xarelto, COPD, diabetes, tobacco abuse. Patient was seen and examined. He complains of generalized weak. Denies chest pain or shortness of breath. Vital signs stable. Will continue supportive treatment. PT OT evaluation. - Constitutional Vitals: Temp Pulse Resp BP Pulse Ox 97.7 F 79 15 166/83 95 11/08/16 07:00 11/08/16 11:28 11/08/16 11:28 11/08/16 11:28 11/08/16 11:28 General appearance: Present: A&O X 3, underweight - Head Head exam: Present: atraumatic, normocephalic - Eye Eye exam: Present: PERRL, conjuntiva pink, sclera anicteric Pupils: Present: PERRL - Neck Neck exam general surgery: Present: supple, trachea midline. Absent: lymphadenopathy - Respiratory Respiratory exam: Present: CTAB. Absent: accessory muscle use, rales, rhonchi, wheezes - Cardiovascular Cardiovascular exam: Present: RRR, +S1, +S2. Absent: diastolic murmur, gallop, rubs, systolic murmur - GI/Abdominal GI/Abdominal exam: Present: normal bowel sounds, soft, no peritoneal signs. Absent: distended, tenderness - Extremities Exam Extremities exam: Present: warm, radial pulses palpable and symetrical. Absent : calf tenderness, cyanotic, pedal edema - Neurological Exam Neurological exam: Present: CN II-XII intact, oriented X3, no focal deficits. Absent: pronater drift, facial droop, speech deficit - Skin Skin exam: Present: dry, intact Internal Medicine: Result - Labs CBC & Chem 7: 11/08/16 01:03 11/08/16 01:03 Labs: Short CBC 11/08/16 Range/Units 01:03 WBC 5.6 (4.3-11.1) K/mcL Hgb 11.8 L D (12.9-16.9) g/dL Hct 35.9 L (37.5-50.1) % Plt Count 216 (140-400) K/mcL Neutrophils # 5.2 (1.6-8.9) K/mcL BMP 11/08/16 01:03 Sodium 131 L D Potassium 4.1 Chloride 94 L Carbon Dioxide 24 BUN 27 H Creatinine 1.46 H Glucose 427 H Calcium 8.2 L Cardiac Enzymes 11/08/16 11/08/16 Range/Units 01:03 06:19 Troponin I 0.08 H* 0.07 H* (0-0.03) ng/mL - ABG Interpretation ABG results: PT/INR, D-dimer PT 16.6 Seconds (9.4-12.1) H 11/07/16 13:55 Consult Discharge Plan - Plan Referrals: NO,PCP [Primary Care Provider] -
[2016-11-08] MEDS ORDERED: D5% in Water 1,000 ML IV PRN (16:30)
[2016-11-08] MEDS: Nicotine 14 MG PATCH.TD24 TD SCH (18:24)
[2016-11-08] MEDS: traMADol 50 MG TABLET PO PRN (20:16)
[2016-11-08] MEDS: Melatonin 3 MG TABLET PO SCH (20:16)
[2016-11-08] MEDS: Insulin DETEMIR 100 UNIT/ML X5UNITS SQ SCH (20:36)
[2016-11-09 06:52] LABS: Calcium 8.4 mg/dL (8.6-10.8)
[2016-11-09 07:05] LABS: Basophils % 0.1 %; Eosinophils % 0.3 %; Hematocrit 35.5 % (37.5-50.1); Hemoglobin 11.5 g/dL (12.9-16.9); Immature Granulocytes % 0.5 % (0-4); Lymphocytes % 13.6 %; Mean Corpuscular HGB Conc 32.4 g/dL (31.6-35.5); Mean Corpuscular Volume 89.4 fL (83.0-100.0); Mean Platelet Volume 10.9 fL (9.4-12.4); Monocytes # 1.5 K/mcL (0.0-1.3); Monocytes % 9.9 %; Neutrophils # 11.1 K/mcL (1.6-8.9); Platelet Count 204 K/mcL (140-400); Red Blood Count 3.97 M/mcL (4.19-5.50); Red Cell Distribution Width 15.8 % (11.5-14.5); Segmented Neutrophils % 75.6 %
[2016-11-09] MEDS: Metoprolol XL (24 HR) Succ 25 MG TAB.ER.24H PO SCH (09:02)
[2016-11-09] MEDS: Insulin LISPRO 300 UNITS/3 ML VIAL SQ SCH ×4 (09:02→23:44)
[2016-11-09] MEDS: Furosemide 40 MG TABLET PO SCH (09:03)
[2016-11-09] MEDS: Cyanocobalamin (B-12) 1,000 MCG TABLET PO SCH (09:03)
[2016-11-09] MEDS: *HR* Rivaroxaban 10 MG TABLET PO SCH (09:03)
[2016-11-09] MEDS: Ranolazine 500 MG TAB.ER.12H PO SCH ×2 (09:03→23:40)
[2016-11-09] MEDS: *HR* Amiodarone 200 MG TABLET PO SCH (09:03)
[2016-11-09] MEDS: Nicotine 14 MG PATCH.TD24 TD SCH (09:04)
[2016-11-09] MEDS: Gabapentin 400 MG CAPSULE PO SCH ×3 (09:04→23:41)
[2016-11-09] MEDS: VITAMIN D3 PO SCH (09:04)
[2016-11-09] MEDS: CALCIUM CARBONATE PO SCH (09:04)
[2016-11-09] MEDS: Finasteride 5 MG TABLET PO SCH (09:04)
--- NOTE | 2016-11-09 12:10 | Internal Med Progress Note ---
Date of Encounter: 11/09/16 Time of Encounter: 10:00 - Assessment and plan (1) Elevated troponin I level Current Visit: Yes Status: Acute Assessment and plan: Patient's old chart is reviewed. He has a chronic elevated troponin. 3 sets of troponin has been trended. No significant elevation. Patient has no chest pain or shortness of breath. (2) Generalized weakness Current Visit: Yes Status: Acute Assessment and plan: Etiology is undetermined. Patient has multiple chronic medical problems, his glucose level is high. Will optimize medical treatment. PTOT evaluation. Nutrition consult. (3) DVT prophylaxis Current Visit: No Status: Acute Assessment and plan: Patient is on xarelto (4) Tobacco abuse Current Visit: No Status: Acute Assessment and plan: Smoking cessation education done. Nicotine patch (5) Atrial fibrillation Current Visit: No Status: Chronic Assessment and plan: Heart rate is well controlled. Continue xarelto. Qualifiers: Atrial fibrillation type: paroxysmal Qualified Code(s): I48.0 - Paroxysmal atrial fibrillation (6) Diabetes mellitus Current Visit: No Status: Chronic Assessment and plan: Glucose is better controlled now. Will continue basal and sliding scale coverage. 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 Possibly due to recent steroid use. No signs of infection now. We will closely monitor WBC level Qualifiers: Leukocytosis type: leukemoid reaction Qualified Code(s): D72.823 - Leukemoid reaction - Time Spent With Patient 25 - 35 minutes - Subjective Interval history: Patient is a 80-year-old male admitted for generalized weakness. His past medical history is significant for A. fib on xarelto, COPD, diabetes, tobacco abuse. Patient was seen and examined. He complains of generalized weak, tired. Denies chest pain or shortness of breath. No cough. Vital signs stable. Leukocytosis noticed, patient has no signs of infection. No fever. He had 1 dose of Solu-Medrol in the emergency room, which may account for leukocytosis. Will follow up white count level. Will continue supportive treatment. PT OT evaluation. - Constitutional Vitals: Temp Pulse Resp BP Pulse Ox 97.8 F 66 16 125/73 92 L 11/09/16 07:34 11/09/16 07:34 11/09/16 07:34 11/09/16 07:34 11/09/16 07:34 General appearance: Present: A&O X 3, underweight - Head Head exam: Present: atraumatic, normocephalic - Eye Eye exam: Present: PERRL, conjuntiva pink, sclera anicteric Pupils: Present: PERRL - Neck Neck exam general surgery: Present: supple, trachea midline. Absent: lymphadenopathy - Respiratory Respiratory exam: Present: CTAB. Absent: accessory muscle use, rales, rhonchi, wheezes - Cardiovascular Cardiovascular exam: Present: RRR, +S1, +S2. Absent: diastolic murmur, gallop, rubs, systolic murmur - GI/Abdominal GI/Abdominal exam: Present: normal bowel sounds, soft, no peritoneal signs. Absent: distended, tenderness - Extremities Exam Extremities exam: Present: warm, radial pulses palpable and symetrical. Absent : calf tenderness, cyanotic, pedal edema - Neurological Exam Neurological exam: Present: CN II-XII intact, oriented X3, no focal deficits. Absent: pronater drift, facial droop, speech deficit - Skin Skin exam: Present: dry, intact Internal Medicine: Result - Labs CBC & Chem 7: 11/09/16 06:15 11/09/16 06:15 Labs: Short CBC 11/09/16 Range/Units 06:15 WBC 14.7 H D (4.3-11.1) K/mcL Hgb 11.5 L (12.9-16.9) g/dL Hct 35.5 L (37.5-50.1) % Plt Count 204 (140-400) K/mcL Neutrophils # 11.1 H (1.6-8.9) K/mcL BMP 11/09/16 06:15 Sodium 138 D Potassium 4.0 Chloride 103 Carbon Dioxide 27 BUN 38 H D Creatinine 1.42 H Glucose 173 H Calcium 8.4 L - ABG Interpretation ABG results: PT/INR, D-dimer PT 16.6 Seconds (9.4-12.1) H 11/07/16 13:55 Consult Discharge Plan - Plan Referrals: NO,PCP [Primary Care Provider] -
[2016-11-09] MEDS: Melatonin 3 MG TABLET PO SCH (23:40)
[2016-11-09] MEDS: Insulin DETEMIR 100 UNIT/ML X5UNITS SQ SCH (23:42)
[2016-11-10] MEDS: traMADol 50 MG TABLET PO PRN ×2 (04:18→12:00)
[2016-11-10 05:43] LABS: Basophils % 0.2 %; Eosinophils # 0.1 K/mcL (0.0-0.6); Eosinophils % 0.6 %; Hematocrit 36.8 % (37.5-50.1); Hemoglobin 11.7 g/dL (12.9-16.9); Immature Granulocytes % 0.7 % (0-4); Lymphocytes # 2.2 K/mcL (0.6-4.6); Lymphocytes % 19.3 %; Mean Corpuscular HGB Conc 31.8 g/dL (31.6-35.5); Mean Corpuscular Hemoglobin 28.9 pg (28.0-33.3); Mean Corpuscular Volume 90.9 fL (83.0-100.0); Mean Platelet Volume 10.5 fL (9.4-12.4); Monocytes # 1.1 K/mcL (0.0-1.3); Monocytes % 9.4 %; Neutrophils # 8.1 K/mcL (1.6-8.9); Platelet Count 179 K/mcL (140-400); Red Blood Count 4.05 M/mcL (4.19-5.50); Red Cell Distribution Width 15.8 % (11.5-14.5); Segmented Neutrophils % 69.8 %
[2016-11-10 05:58] LABS: Alanine Aminotransferase 25 Units/L (0-55); Albumin/Globulin Ratio 0.8 (1.1-2.2); Alkaline Phosphatase 80 Units/L (38-126); Aspartate Amino Transferase 18 Units/L (5-34); BUN/Creatinine Ratio 27 (6-26); Bilirubin,Total 0.4 mg/dL (0.2-1.2); Blood Urea Nitrogen 37 mg/dL (8-26); Calcium 8.4 mg/dL (8.6-10.8); Carbon Dioxide 26 mEq/L (19-29); Chloride 102 mEq/L (98-109); Globulin 3.6 g/dL (2.4-3.5); Glucose 213 mg/dL (70-99); Osmolality,Calculated 293 (280-300); Sodium 134 mEq/L (136-145); Total Protein 6.6 g/dL (6.0-8.3); eGFR For African Americans > 60 (> 60); eGFR For Non-African Americans 51 (> 60)
[2016-11-10] MEDS: Finasteride 5 MG TABLET PO SCH (08:06)
[2016-11-10] MEDS: Gabapentin 400 MG CAPSULE PO SCH ×3 (08:06→22:09)
[2016-11-10] MEDS: *HR* Amiodarone 200 MG TABLET PO SCH (08:06)
[2016-11-10] MEDS: Metoprolol XL (24 HR) Succ 25 MG TAB.ER.24H PO SCH (08:06)
[2016-11-10] MEDS: Furosemide 40 MG TABLET PO SCH (08:06)
[2016-11-10] MEDS: Ranolazine 500 MG TAB.ER.12H PO SCH ×2 (08:06→22:10)
[2016-11-10] MEDS: Cyanocobalamin (B-12) 1,000 MCG TABLET PO SCH (08:07)
[2016-11-10] MEDS: Insulin LISPRO 300 UNITS/3 ML VIAL SQ SCH ×4 (08:07→22:08)
[2016-11-10] MEDS: *HR* Rivaroxaban 10 MG TABLET PO SCH (08:07)
[2016-11-10] MEDS: Nicotine 14 MG PATCH.TD24 TD SCH (08:08)
[2016-11-10] MEDS: VITAMIN D3 PO SCH (08:08)
[2016-11-10] MEDS: CALCIUM CARBONATE PO SCH (08:08)
--- NOTE | 2016-11-10 13:41 | Electrocardiograph Report ---
[place] [address] Test Date: 2016-11-07 Pat Name: Tom Mistry Department: 103 Room: 2NE30 Gender: M Clinical Manager: : 1935 Requested By: Harish Rao Order Number: [id number] Reading MD: Main Zhou MD Measurements Intervals [place] Rate: 65 P: -63 [place]: 154 QRS: -79 QRSD: 138 T: 140 QT: 479 QTc: 491 Interpretive Statements ELECTRONIC ATRIAL PACEMAKER ELECTRONIC VENTRICULAR PACEMAKER Electronically Signed On 11-10-2016 13:39:39 EDT by Main Zhou MD
--- NOTE | 2016-11-10 15:14 | Electrocardiograph Report ---
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
--- NOTE | 2016-11-10 17:55 | Internal Med Progress Note ---
Date of Encounter: 11/10/16 Time of Encounter: 10:00 - Assessment and plan (1) Generalized weakness Current Visit: Yes Status: Acute Assessment and plan: Etiology is undetermined. Patient has multiple chronic medical problems, his glucose level is high. Will optimize medical treatment. PTOT evaluation. Nutrition consult. Patient may need placement consideration. PT OT recommended SNF discharge. (2) Elevated troponin I level Current Visit: Yes Status: Acute Assessment and plan: Patient's old chart is reviewed. He has a chronic elevated troponin. 3 sets of troponin has been trended. No significant elevation. Patient has no chest pain or shortness of breath. (3) DVT prophylaxis Current Visit: No Status: Acute Assessment and plan: Patient is on xarelto (4) Tobacco abuse Current Visit: No Status: Acute Assessment and plan: Smoking cessation education done. Nicotine patch (5) Atrial fibrillation Current Visit: No Status: Chronic Assessment and plan: Heart rate is well controlled. Continue xarelto. Qualifiers: Atrial fibrillation type: paroxysmal Qualified Code(s): I48.0 - Paroxysmal atrial fibrillation (6) Diabetes mellitus Current Visit: No Status: Chronic Assessment and plan: Glucose is better controlled now. Will continue basal and sliding scale coverage. 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 Possibly due to recent steroid use. No signs of infection now. Improved today. We will closely monitor WBC level Qualifiers: Leukocytosis type: leukemoid reaction Qualified Code(s): D72.823 - Leukemoid reaction (8) Low back pain Current Visit: Yes Status: Acute Assessment and plan: Patient has low back pain since when he was 23-year-old. Will treat patient with lidocaine patch. Continue home pain medications Qualifiers: Chronicity: chronic Back pain laterality: bilateral Sciatica presence: without sciatica Qualified Code(s): M54.5 - Low back pain; G89.29 - Other chronic pain - Time Spent With Patient 25 - 35 minutes - Subjective Interval history: Patient is a 80-year-old male admitted for generalized weakness. His past medical history is significant for A. fib on xarelto, COPD, diabetes, tobacco abuse. Patient was seen and examined. He complains of generalized weak, tired. Low back pain. Denies chest pain or shortness of breath. No cough. Vital signs stable. Leukocytosis improved. No fever. Will follow up white count level. Place a lidocaine patch for low back pain. Will continue supportive treatment. PT OT evaluation. - Constitutional Vitals: Temp Pulse Resp BP Pulse Ox 97.8 F 62 18 114/82 94 L 11/10/16 16:59 11/10/16 16:59 11/10/16 16:59 11/10/16 16:59 11/10/16 16:59 General appearance: Present: A&O X 3, underweight - Head Head exam: Present: atraumatic, normocephalic - Eye Eye exam: Present: PERRL, conjuntiva pink, sclera anicteric Pupils: Present: PERRL - Neck Neck exam general surgery: Present: supple, trachea midline. Absent: lymphadenopathy - Respiratory Respiratory exam: Present: CTAB. Absent: accessory muscle use, rales, rhonchi, wheezes - Cardiovascular Cardiovascular exam: Present: RRR, +S1, +S2. Absent: diastolic murmur, gallop, rubs, systolic murmur - GI/Abdominal GI/Abdominal exam: Present: normal bowel sounds, soft, no peritoneal signs. Absent: distended, tenderness - Extremities Exam Extremities exam: Present: warm, radial pulses palpable and symetrical. Absent : calf tenderness, cyanotic, pedal edema - Neurological Exam Neurological exam: Present: CN II-XII intact, oriented X3, no focal deficits. Absent: pronater drift, facial droop, speech deficit - Skin Skin exam: Present: dry, intact Internal Medicine: Result - Labs CBC & Chem 7: 11/10/16 05:22 11/10/16 05:22 Labs: Short CBC 11/10/16 Range/Units 05:22 WBC 11.6 H (4.3-11.1) K/mcL Hgb 11.7 L (12.9-16.9) g/dL Hct 36.8 L (37.5-50.1) % Plt Count 179 (140-400) K/mcL Neutrophils # 8.1 (1.6-8.9) K/mcL BMP 11/10/16 05:22 Sodium 134 L Potassium 4.0 Chloride 102 Carbon Dioxide 26 BUN 37 H Creatinine 1.35 H Glucose 213 H Calcium 8.4 L Liver Function 11/10/16 Range/Units 05:22 Total Bilirubin 0.4 (0.2-1.2) mg/dL AST 18 (5-34) Units/L ALT 25 (0-55) Units/L Alkaline Phosphatase 80 (38-126) Units/L Albumin 3.0 L (3.5-5.0) g/dL - ABG Interpretation ABG results: PT/INR, D-dimer PT 16.6 Seconds (9.4-12.1) H 11/07/16 13:55 Consult Discharge Plan - Plan Referrals: NO,PCP [Primary Care Provider] -
[2016-11-10] MEDS: Insulin DETEMIR 100 UNIT/ML X5UNITS SQ SCH (22:08)
[2016-11-10] MEDS: Melatonin 3 MG TABLET PO SCH (22:09)
[2016-11-11 06:41] LABS: Basophils % 0.3 %; Eosinophils # 0.1 K/mcL (0.0-0.6); Eosinophils % 0.9 %; Hematocrit 35.9 % (37.5-50.1); Hemoglobin 11.4 g/dL (12.9-16.9); Immature Granulocytes % 0.6 % (0-4); Immature Platelets 7.9 % (1.1-6.1); Lymphocytes # 2.1 K/mcL (0.6-4.6); Lymphocytes % 20.9 %; Mean Corpuscular HGB Conc 31.8 g/dL (31.6-35.5); Mean Corpuscular Hemoglobin 28.4 pg (28.0-33.3); Mean Corpuscular Volume 89.5 fL (83.0-100.0); Mean Platelet Volume 11.2 fL (9.4-12.4); Monocytes # 0.9 K/mcL (0.0-1.3); Platelet Count 170 K/mcL (140-400); Red Blood Count 4.01 M/mcL (4.19-5.50); Red Cell Distribution Width 15.6 % (11.5-14.5); Segmented Neutrophils % 68.3 %
[2016-11-11 06:58] LABS: BUN/Creatinine Ratio 34 (6-26); Blood Urea Nitrogen 30 mg/dL (8-26); Calcium 8.4 mg/dL (8.6-10.8); Carbon Dioxide 25 mEq/L (19-29); Chloride 105 mEq/L (98-109); Glucose 111 mg/dL (70-99); Osmolality,Calculated 293 (280-300); Potassium 3.9 mEq/L (3.5-4.5); Sodium 138 mEq/L (136-145); eGFR For African Americans > 60 (> 60); eGFR For Non-African Americans > 60 (> 60)
[2016-11-11 07:54] VITALS: BP 115/68
--- NOTE | 2016-11-11 08:26 | Discharge Summary ---
Date of Encounter: 11/11/16 Time of Encounter: 08:24 - Discharge Diagnosis (1) Elevated troponin Priority: Primary Status: Acute Comments: History of chronically elevated troponins. Acute coronary syndrome ruled out (2) CHF (congestive heart failure) Priority: Secondary Status: Acute Comments: Chronic systolic CHF, no exacerbation Qualifiers: Congestive heart failure type: systolic Congestive heart failure chronicity : chronic Qualified Code(s): I50.22 - Chronic systolic (congestive) heart failure (3) Generalized weakness Priority: Primary Status: Acute (4) Leukocytosis Priority: Primary Status: Acute Qualifiers: Leukocytosis type: leukemoid reaction Qualified Code(s): D72.823 - Leukemoid reaction (5) Low back pain Priority: Secondary Status: Acute Qualifiers: Chronicity: chronic Back pain laterality: bilateral Sciatica presence: without sciatica Qualified Code(s): M54.5 - Low back pain; G89.29 - Other chronic pain (6) Hyperlipidemia associated with type 2 diabetes mellitus Priority: Secondary Status: Acute (7) Tobacco abuse Priority: Secondary Status: Acute (8) Atrial fibrillation Priority: Secondary Status: Chronic Qualifiers: Atrial fibrillation type: paroxysmal Qualified Code(s): I48.0 - Paroxysmal atrial fibrillation (9) COPD (chronic obstructive pulmonary disease) Priority: Secondary Status: Chronic Qualifiers: COPD type: unspecified COPD Qualified Code(s): J44.9 - Chronic obstructive pulmonary disease, unspecified (10) Diabetes mellitus Priority: Secondary Status: Chronic Qualifiers: Diabetes mellitus type: type 2 Diabetes mellitus complication status: with kidney complications Diabetes mellitus complication detail: with chronic kidney disease 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 Chronic kidney disease stage: stage 3 (moderate) Qualified Code(s): E11.22 - Type 2 diabetes mellitus with diabetic chronic kidney disease; N18.3 - Chronic kidney disease, stage 3 (moderate); Z79.4 - CHCF (current) use of insulin (11) Ischemic cardiomyopathy Priority: Secondary Status: Chronic Comments: Status post AICD placement - Discharge Medications Prescriptions: Amiodarone [Cordarone] 200 mg PO DAILY #30 tablet Furosemide [Lasix] 40 mg PO DAILY #30 tablet Lidocaine Patch [Lidoderm 5% patch] 1 each TP DAILY #30 adh..patch Potassium Chloride [Klor-Con Sprinkle] 10 meq PO BID #60 capsule.er Home Medications: Calcium Carbonate/Vitamin D3 [Calcium 500-Vit D3 400 Tablet] 1 tab PO DAILY [History] Ferrous Sulfate [Iron] 325 mg PO DAILY 09/19/15 [History] Gabapentin [Neurontin] 800 mg PO TID 09/19/15 [History] Linagliptin [Tradjenta] 5 mg PO DAILY 09/19/15 [History] Melatonin [Melatin] 3 mg PO HS 09/19/15 [History] Omeprazole [PriLOSEC] 20 mg PO DAILY 09/19/15 [History] Rivaroxaban [Xarelto] 20 mg PO DAILY 09/19/15 [History] Sertraline [Zoloft] 100 mg PO DAILY 09/19/15 [History] TraMADol [Ultram] 50 mg PO TID PRN 09/19/15 [History] Finasteride [Proscar] 5 mg PO DAILY #30 tablet 11/05/15 [Rx] Atorvastatin [Lipitor] 40 mg PO HS 05/17/16 [History] Cyanocobalamin (Vitamin B-12) [Vitamin B12] 1,000 mcg PO DAILY 05/17/16 [History ] Donepezil [Aricept] 10 mg PO HS 05/17/16 [History] Insulin ASPART [Novolog] 2 - 12 unit SQ TIDWM MDD per sliding scale 05/17/16 [ History] Insulin Glargine [Lantus] 14 unit SQ QAM 05/17/16 [History] Ipratropium/Albuterol Neb [Duoneb] 3 ml IH Q6HR PRN 05/17/16 [History] Ondansetron HCl [Zofran] 4 mg PO BID PRN 05/17/16 [History] Oxygen 1 each .ROUTE AD 05/17/16 [History] Ranolazine [Ranexa] 500 mg PO BID 05/17/16 [History] Metoprolol XL (24 HR) Succ [Toprol Xl] 12.5 mg PO DAILY 10/05/16 [History] Amiodarone [Cordarone] 200 mg PO DAILY #30 tablet 11/11/16 [Rx] Furosemide [Lasix] 40 mg PO DAILY #30 tablet 11/11/16 [Rx] Lidocaine Patch [Lidoderm 5% patch] 1 each TP DAILY #30 adh..patch 11/11/16 [Rx] Potassium Chloride [Klor-Con Sprinkle] 10 meq PO BID #60 capsule.er 11/11/16 [Rx ] Allergies/Adverse Reactions: Allergies amitriptyline Allergy (Unknown, Verified 11/07/16 13:44) unknown PATIENT UNSURE OF REACTION- NO REACTIONS LISTED ON ECW Date of admission: 11/09/16 15:11 Primary care physician: PCP NO - Patient Status Disposition: Home Health Service Condition: Fair Overall status at discharge: patient is progressing back to baseline - Discharge Instructions Follow Up With: NO,PCP [Primary Care Provider] - Additional Instructions: Follow-up with primary care physician within the next 7 days. Continue Lasix 40 mg daily with potassium supplement. Lidocaine patch order for back pain - Diet and Activity Activity: increase activity as tolerated Diet: diabetic diet Hospital course: Mr. Mistry is a 80 year old male past medical history of atrial fibrillation on Xarelto and COPD O 2 dep 2 Lt PRN, dementia and CHF EF 20% s/p AICD diabetes insulin dep ,failure to drive. According to ED records the patient had been experiencing generalized weakness, anorexia which has been going on for some time. He lives with his and has a home health aid Prepares his meals. He apparently did not feel well and he laid down on the living room floor and would not get up. His was unable to have helped him follow-up and called EMS for assistance. He did not fall there was no trauma that he just was unable to get up and walk. On arrival to the ER the patient did not have any focal deficit slurred speech and facial droop chest pain or shortness of breath. Initial lab work did reveal an elevated troponin 0.08 rest of lab work was unremarkable and urine was negative chest x-rays clear. CT was without any acute intracranial abnormalities. He was admitted for further workup and evaluation. Presently patient states that he came to the hospital because he was sick and that he felt weak . During his hospitalization the patient remained stable. His white blood cell count increased to 14.7, unclear etiology and no infection has been found. His kidney function as last creatinine improved from 1.46 down to 0.89. He has chronically elevated troponins and his values range between 0.08 and 0.07. He denies any chest pain. Also, the patient was complaining of lower back pain that was relieved with lidocaine patch. He is a stable to be discharged home Time spent discussing smoking cessation with patient: 3 to 10 minutes ( counseling for 5 min) - Time Spent with Patient Total time spent providing and/or coordinating discharge services: Greater than 30 minutes (40 minutes) - Constitutional Vitals: Temp Pulse Resp BP Pulse Ox 97.6 F 63 18 115/68 93 L 11/11/16 04:19 11/11/16 07:49 11/11/16 07:49 11/11/16 07:49 11/11/16 07:49 General appearance: Present: A&O X 3, underweight - Head Head exam: Present: atraumatic, normocephalic - Eye Eye exam: Present: PERRL, conjuntiva pink, sclera anicteric Pupils: Present: PERRL Additional comments: Very poor dentition - Neck Neck exam general surgery: Present: supple, trachea midline. Absent: lymphadenopathy - Respiratory Respiratory exam: Present: decreased breath sounds (Fine bibasilar crackles), CTAB. Absent: accessory muscle use, rales, rhonchi, wheezes - Cardiovascular Cardiovascular exam: Present: RRR, +S1, +S2. Absent: diastolic murmur, gallop, rubs, systolic murmur - GI/Abdominal GI/Abdominal exam: Present: normal bowel sounds, soft, no peritoneal signs. Absent: distended, tenderness - Extremities Exam Extremities exam: Present: warm, radial pulses palpable and symetrical. Absent : calf tenderness, cyanotic, pedal edema - Neurological Exam Neurological exam: Present: CN II-XII intact, oriented X3, no focal deficits. Absent: pronater drift, facial droop, speech deficit - Skin Skin exam: Present: dry, intact
--- NOTE | 2016-11-11 08:36 | Physician Discharge Referral ---
Home Health/Hosp Referral Info Transfer to: Home Health Provider in Charge Post Discharge: PCP - Diagnosis (1) Elevated troponin Status: Acute (2) CHF (congestive heart failure) Status: Acute (3) Generalized weakness Status: Acute (4) Leukocytosis Status: Acute (5) Low back pain Status: Acute (6) Hyperlipidemia associated with type 2 diabetes mellitus Status: Acute (7) Tobacco abuse Status: Acute (8) Atrial fibrillation Status: Chronic (9) COPD (chronic obstructive pulmonary disease) Status: Chronic (10) Diabetes mellitus Status: Chronic (11) Ischemic cardiomyopathy Status: Chronic - Respiratory Orders Oxygen / L per min (2 L as needed) Smoking Cessation: Smoking cessation has been advised. For more information, call the [employer] Tobacco Quit Line at 2-219-DUIQ-NOW. - Diet/Nutrition Diet/Nutrition Orders: No Added Salt (MARIAN) (Diabetic diet 1800 kcal) - Services Needed Following services are medically necessary services: Home Health Aide Home Care Orders: Follow-up with primary care physician within the next 7 days. Continue Lasix 40 mg daily with potassium supplement. Lidocaine patch order for back pain - Transfer Medications Prescriptions: Amiodarone [Cordarone] 200 mg PO DAILY #30 tablet Furosemide [Lasix] 40 mg PO DAILY #30 tablet Lidocaine Patch [Lidoderm 5% patch] 1 each TP DAILY #30 adh..patch Potassium Chloride [Klor-Con Sprinkle] 10 meq PO BID #60 capsule.er Home Medications: Calcium Carbonate/Vitamin D3 [Calcium 500-Vit D3 400 Tablet] 1 tab PO DAILY [History] Ferrous Sulfate [Iron] 325 mg PO DAILY 09/19/15 [History] Gabapentin [Neurontin] 800 mg PO TID 09/19/15 [History] Linagliptin [Tradjenta] 5 mg PO DAILY 09/19/15 [History] Melatonin [Melatin] 3 mg PO HS 09/19/15 [History] Omeprazole [PriLOSEC] 20 mg PO DAILY 09/19/15 [History] Rivaroxaban [Xarelto] 20 mg PO DAILY 09/19/15 [History] Sertraline [Zoloft] 100 mg PO DAILY 09/19/15 [History] TraMADol [Ultram] 50 mg PO TID PRN 09/19/15 [History] Finasteride [Proscar] 5 mg PO DAILY #30 tablet 11/05/15 [Rx] Atorvastatin [Lipitor] 40 mg PO HS 05/17/16 [History] Cyanocobalamin (Vitamin B-12) [Vitamin B12] 1,000 mcg PO DAILY 05/17/16 [History ] Donepezil [Aricept] 10 mg PO HS 05/17/16 [History] Insulin ASPART [Novolog] 2 - 12 unit SQ TIDWM MDD per sliding scale 05/17/16 [ History] Insulin Glargine [Lantus] 14 unit SQ QAM 05/17/16 [History] Ipratropium/Albuterol Neb [Duoneb] 3 ml IH Q6HR PRN 05/17/16 [History] Ondansetron HCl [Zofran] 4 mg PO BID PRN 05/17/16 [History] Oxygen 1 each .ROUTE AD 05/17/16 [History] Ranolazine [Ranexa] 500 mg PO BID 05/17/16 [History] Metoprolol XL (24 HR) Succ [Toprol Xl] 12.5 mg PO DAILY 10/05/16 [History] Amiodarone [Cordarone] 200 mg PO DAILY #30 tablet 11/11/16 [Rx] Furosemide [Lasix] 40 mg PO DAILY #30 tablet 11/11/16 [Rx] Lidocaine Patch [Lidoderm 5% patch] 1 each TP DAILY #30 adh..patch 11/11/16 [Rx] Potassium Chloride [Klor-Con Sprinkle] 10 meq PO BID #60 capsule.er 11/11/16 [Rx ] Allergies/Adverse Reactions: Allergies amitriptyline Allergy (Unknown, Verified 11/07/16 13:44) unknown PATIENT UNSURE OF REACTION- NO REACTIONS LISTED ON ECW Certification: Further, I certify that my clinical findings support that this patient is homebound (i.e. absences from home require considerable and taxing effort and are for medical reasons or [employer] services or infrequently or short duration when for other reasons) because: Homebound Reason: Patient requires assistance of a person or device to safely leave home Attestation: My signature below is to certify that this patient is under my care and that I, or nurse practitioner, or a physician's roofer assistant working with me, has a face-to -face encounter with this patient.
[2016-11-11] MEDS: Ranolazine 500 MG TAB.ER.12H PO SCH (08:47)
[2016-11-11] MEDS: *HR* Rivaroxaban 10 MG TABLET PO SCH (08:47)
[2016-11-11] MEDS: Gabapentin 400 MG CAPSULE PO SCH (08:47)
[2016-11-11] MEDS: Furosemide 40 MG TABLET PO SCH (08:47)
[2016-11-11] MEDS: Metoprolol XL (24 HR) Succ 25 MG TAB.ER.24H PO SCH (08:47)
[2016-11-11] MEDS: Finasteride 5 MG TABLET PO SCH (08:48)
[2016-11-11] MEDS: Insulin LISPRO 300 UNITS/3 ML VIAL SQ SCH (08:48)
[2016-11-11] MEDS: *HR* Amiodarone 200 MG TABLET PO SCH (08:48)
[2016-11-11] MEDS: Cyanocobalamin (B-12) 1,000 MCG TABLET PO SCH (08:48)
[2016-11-11] MEDS: Nicotine 14 MG PATCH.TD24 TD SCH (08:58)
== END 2016-11-11 11:31 | disposition home health service (06) | DRG 948 ==
LOC: EMEROO 13:37 → 2NENU 13:37 → SUATTDRO 11-09 15:11
PROVIDERS: ADMIT Internal Medicine; ATTEND Internal Medicine

== ENCOUNTER 2017-12-04 17:03 | Inpatient (IN) ==
--- NOTE | 2017-12-04 17:52 | Emergency Department Note ---
Disposition Clinical Impression: Fall, Lumbar transverse process fracture Disposition: Admitted As Inpatient Condition: Fair General Adult HPI - General Chief complaint: ED Back Pain/Injury Stated complaint: fall-back injury Time Seen by Provider: 12/04/17 17:46 Source: patient Limitations: no limitations - History of Present Illness Pain Scale: 8 - Related Data Home Medications Medication Instructions Recorded Confirmed Calcium Carbonate/Vitamin D3 1 tab PO BID 09/19/15 12/04/17 [Calcium 500-Vit D3 400 Tablet] Ferrous Sulfate [Iron] 325 mg PO BID 09/19/15 12/04/17 Linagliptin [Tradjenta] 5 mg PO DAILY 09/19/15 12/04/17 Melatonin [Melatin] 3 mg PO HS 09/19/15 12/04/17 Omeprazole [PriLOSEC] 20 mg PO DAILY 09/19/15 12/04/17 Rivaroxaban [Xarelto] 20 mg PO DAILY 09/19/15 12/04/17 Sertraline [Zoloft] 100 mg PO DAILY 09/19/15 12/04/17 traMADol [Ultram] 50 mg PO TID PRN 09/19/15 12/04/17 Atorvastatin [Lipitor] 40 mg PO HS 05/17/16 12/04/17 Donepezil [Aricept] 10 mg PO HS 05/17/16 12/04/17 Insulin ASPART [Novolog] 0 unit SQ TIDWM 05/17/16 12/04/17 Ipratropium/Albuterol Neb [Duoneb] 3 ml IH Q6HR PRN 05/17/16 12/04/17 Ondansetron HCl [Zofran] 4 mg PO BID PRN 05/17/16 12/04/17 Oxygen 2 l NS HS 05/17/16 12/04/17 Ranolazine [Ranexa] 500 mg PO BID 05/17/16 12/04/17 Metoprolol XL (24 HR) Succ [Toprol 12.5 mg PO DAILY 10/05/16 12/04/17 Xl] Fluticasone/Salmeterol [Advair Hfa 2 puff IH BID 12/04/17 12/04/17 230-21 Mcg Inhaler] Gabapentin [Neurontin] 800 mg PO TID 12/04/17 12/04/17 Insulin Degludec [Tresiba 42 unit SQ HS 12/04/17 12/04/17 Flextouch U-100] Loratadine [Claritin] 10 mg PO DAILY 12/04/17 12/04/17 Roflumilast [Daliresp] 500 mcg PO DAILY 12/04/17 12/04/17 Umeclidinium Continental [Incruse 62.5 mcg IH DAILY 12/04/17 12/04/17 Ellipta] Previous Rx's Medication Instructions Recorded Finasteride [Proscar] 5 mg PO DAILY #30 tablet 11/05/15 Amiodarone [Cordarone] 200 mg PO DAILY #30 tablet 11/11/16 Furosemide [Lasix] 40 mg PO DAILY #30 tablet 11/11/16 Lidocaine Patch [Lidoderm 5% patch] 1 each TP DAILY #30 adh..patch 11/11/16 Potassium Chloride [Klor-Con 10 meq PO BID #60 capsule.er 11/11/16 Sprinkle] Allergies Allergy/AdvReac Type Severity Reaction Status Date / Time amitriptyline Allergy Unknown unknown Verified 12/04/17 17:05 Past Medical History - Past Medical History Medical history: Reports: atrial fibrillation, COPD, coronary artery disease, DVT, diabetes, GERD, hyperlipidemia, hypertension, myocardial infarction Surgical history: Reports: angioplasty/stent, pacemaker/AICD Psychiatric history: Reports: depression - Social History Smoking Status: Current every day smoker Smokeless Tobacco Status: No Alcohol use: Reports: none Drug use: Reports: none Physical Exam - General Limitations: no limitations General appearance: alert Course Vital Signs Temperature 97.9 F 12/04/17 17:05 Pulse Rate 80 12/04/17 17:05 Respiratory Rate 20 12/04/17 17:05 Blood Pressure 109/53 12/04/17 17:05 O2 Sat by Pulse Oximetry 96 12/04/17 17:05 Temperature 98.3 F 12/05/17 04:18 Pulse Rate 76 12/05/17 04:18 Respiratory Rate 18 12/05/17 04:18 Blood Pressure 103/59 12/05/17 04:18 O2 Sat by Pulse Oximetry 81 12/05/17 04:18 Oxygen Delivery Oxygen Delivery Room Air Medical Decision Making - Lab Data Result diagrams: 12/04/17 19:13 12/04/17 19:13 Lab Results 04/02/1512/04/17 12/04/17 Range/Units 19:13 19:13 19:13 WBC 21.7 H (4.3-11.1) K/mcL RBC 3.83 L (4.19-5.50) M/mcL Hgb 11.0 L (12.9-16.9) g/dL Hct 34.7 L (37.5-50.1) % MCV 90.6 (83.0-100.0) fL MCH 28.7 (28.0-33.3) pg MCHC 31.7 (31.6-35.5) g/dL RDW 17.1 H (11.5-14.5) % Plt Count 222 (140-400) K/mcL MPV 10.5 (9.4-12.4) fL Immature Gran % 0.7 (0-4) % Seg Neutrophils % 88.8 % Lymphocytes % 3.5 % Monocytes % 6.9 % Eosinophils % 0.0 % Basophils % 0.1 % Neutrophils # 19.2 H (1.6-8.9) K/mcL Lymphocytes # 0.8 (0.6-4.6) K/mcL Monocytes # 1.5 H (0.0-1.3) K/mcL Eosinophils # 0.0 (0.0-0.6) K/mcL Basophils # 0.0 (0.0-0.2) K/mcL PT 20.7 H (9.4-12.1) Seconds INR 1.9 Sodium 136 (136-145) mEq/L Potassium 4.1 (3.5-5.1) mEq/L Chloride 101 (98-107) mEq/L Carbon Dioxide 26 (23-29) mEq/L BUN 42 H (8-23) mg/dL Creatinine 1.53 H (0.70-1.30) mg/dL Est GFR ( Amer) 53 L (> 60) Est GFR (Non-Af Amer) 44 L (> 60) BUN/Creatinine Ratio 27 H (6-26) Glucose 59 L (70-105) mg/dL Calculated Osmolality 290 (280-300) Calcium 8.9 (8.6-10.3) mg/dL Magnesium 2.0 (1.6-2.6) mg/dL Total Bilirubin 0.5 (0.3-1.0) mg/dL AST 26 (13-39) Units/L ALT 19 (7-52) Units/L Alkaline Phosphatase 91 (34-104) Units/L Serum Total Protein 7.6 (6.4-8.9) g/dL Albumin 3.9 (3.5-5.7) g/dL Globulin 3.7 H (2.4-3.5) g/dL Albumin/Globulin Ratio 1.1 (1.1-2.2) Attestation Statement - Attestation Attestation: I examined this patient and my medical decision-making was reviewed with the Resident Physician. I agree with the documented findings, disposition and treatment plan as described except to the extent set forth below. [id number] time provided Patient arrives to the medical treatment area and a wheelchair after mechanical fall at home. He complains of low back pain. Appears somewhat debilitated. Family at bedside. Imaging studies ordered 18:54: The patient has a transverse lumbar vertebrae fracture. He is debilitated. He is having difficulty ambulating. I am concerned about ongoing falls, especially considering he takes blood thinners. We will likely admit this patient to the medicine service with orthopedic spine consultation. Care will be endorsed to the oncoming physician at 18:54
--- NOTE | 2017-12-04 18:00 | Emergency Department Note ---
Disposition Clinical Impression: Fall Qualifiers: Encounter type: initial encounter Qualified Code(s): W19.XXXA - Unspecified fall, initial encounter Lumbar transverse process fracture Qualifiers: Encounter type: initial encounter Fracture type: closed Qualified Code(s): S32.009A - Unspecified fracture of unspecified lumbar vertebra, initial encounter for closed fracture Disposition: Admitted As Inpatient Condition: Fair Referrals: Patt Shin RECEPTIONIST CLERK [Primary Care Provider] - Forms: ED Satisfaction Letter Time of Disposition: 19:19 General Adult HPI - General Chief complaint: ED Back Pain/Injury Stated complaint: fall-back injury Time Seen by Provider: 12/04/17 17:46 Source: patient Mode of arrival: ambulatory Limitations: no limitations Nursing Notes Reviewed: Yes Vital Signs Reviewed: Yes - History of Present Illness HPI Narrative: 81M presenting with fall after getting up off toilet. He reports lightheadedness , it was not witnessed, he landed on his low back and then hit his head, he is on Xarelto. He reports headache, neck pain, and low back pain. He does not have chest pain or shortness of breath, denies bleed. He lives with his , has a [id number] that assesses his vitals and reconciles his meds twice a week. History significant for COPD on 2L O2 at night, diabetes on basal insulin. He denies saddle anesthesia. Pain Scale: 8 - Related Data Home Medications Medication Instructions Recorded Confirmed Calcium Carbonate/Vitamin D3 1 tab PO DAILY 09/19/15 11/07/16 [Calcium 500-Vit D3 400 Tablet] Ferrous Sulfate [Iron] 325 mg PO DAILY 09/19/15 11/07/16 Gabapentin [Neurontin] 800 mg PO TID 09/19/15 11/07/16 Linagliptin [Tradjenta] 5 mg PO DAILY 09/19/15 11/07/16 Melatonin [Melatin] 3 mg PO HS 09/19/15 11/07/16 Omeprazole [PriLOSEC] 20 mg PO DAILY 09/19/15 11/07/16 Rivaroxaban [Xarelto] 20 mg PO DAILY 09/19/15 11/07/16 Sertraline [Zoloft] 100 mg PO DAILY 09/19/15 11/07/16 traMADol [Ultram] 50 mg PO TID PRN 09/19/15 11/07/16 Atorvastatin [Lipitor] 40 mg PO HS 05/17/16 11/07/16 Cyanocobalamin (Vitamin B-12) 1,000 mcg PO DAILY 05/17/16 11/07/16 [Vitamin B12] Donepezil [Aricept] 10 mg PO HS 05/17/16 11/07/16 Insulin ASPART [Novolog] 2 - 12 unit SQ TIDWM MDD per 05/17/16 11/07/16 sliding scale Insulin Glargine [Lantus] 14 unit SQ QAM 05/17/16 11/07/16 Ipratropium/Albuterol Neb [Duoneb] 3 ml IH Q6HR PRN 05/17/16 11/07/16 Ondansetron HCl [Zofran] 4 mg PO BID PRN 05/17/16 11/07/16 Oxygen 1 each .ROUTE AD 05/17/16 11/07/16 Ranolazine [Ranexa] 500 mg PO BID 05/17/16 11/07/16 Metoprolol XL (24 HR) Succ [Toprol 12.5 mg PO DAILY 10/05/16 11/07/16 Xl] Previous Rx's Medication Instructions Recorded Finasteride [Proscar] 5 mg PO DAILY #30 tablet 11/05/15 Amiodarone [Cordarone] 200 mg PO DAILY #30 tablet 11/11/16 Furosemide [Lasix] 40 mg PO DAILY #30 tablet 11/11/16 Lidocaine Patch [Lidoderm 5% patch] 1 each TP DAILY #30 adh..patch 11/11/16 Potassium Chloride [Klor-Con 10 meq PO BID #60 capsule.er 11/11/16 Sprinkle] Allergies Allergy/AdvReac Type Severity Reaction Status Date / Time amitriptyline Allergy Unknown unknown Verified 12/04/17 17:05 Constitutional: Denies: fever Eyes: Denies: vision change Cardiovascular: Denies: chest pain Respiratory: Denies: dyspnea Gastrointestinal: Denies: abdominal pain, nausea, vomiting, diarrhea Musculoskeletal: Reports: back pain Neurological: Reports: headache, weakness Psychiatric: Denies: anxiety, depression Endocrine: Denies: fatigue Hematological/Lymphatic: Denies: easy bleeding Past Medical History - Past Medical History Medical history: Reports: atrial fibrillation, COPD, coronary artery disease, DVT, diabetes, GERD, hyperlipidemia, hypertension, myocardial infarction Surgical history: Reports: angioplasty/stent, pacemaker/AICD Psychiatric history: Reports: depression - Social History Smoking Status: Current every day smoker Smokeless Tobacco Status: No Alcohol use: Reports: none Drug use: Reports: none Physical Exam - General Limitations: no limitations General appearance: alert - Head Head exam: normocephalic, other (no visible laceration) - Eye Eye exam: Present: EOMI - ENT ENT exam: mucous membranes moist - Neck Neck exam: Present: tenderness. Absent: meningismus - Respiratory Respiratory exam: Present: normal lung sounds bilaterally. Absent: respiratory distress - Cardiovascular Cardiovascular exam: Present: regular rate, normal rhythm - Abdominal Exam Abdominal exam: Present: soft, Non-Tender - Neurological Exam Neurological exam: Present: alert, other (does not know correct year) - Psychiatric Psychiatric exam: Absent: agitated, anxious Course Course Narrative: [place] and mildly disheveled male in no acute distress, he is alert and conversant, not oriented to time or location, [id number], his gait is limited due to pain. He has no chest pain, lung sounds are without wheeze or stridor. No lacerations of the head, neck rotation elicits pain, he has sacral pain on movement and sitting. Neuro exam reveals no focal deficits. ECG shows We are ordering a CT without contrast of the head and neck as well as the sacrum. Re-eval: CT head and neck negative for bleed. CT lumbar shows L L1 transverse process fracture. Case discussed with admitting hospitalist as well as ortho. Ortho agrees to evaluate patient will be in Thursday, in the mean time will brace with TLSO. Admitting hospitalist has agreed to admit the patient for the fracture. Vital Signs Temperature 97.9 F 12/04/17 17:05 Pulse Rate 80 12/04/17 17:05 Respiratory Rate 20 12/04/17 17:05 Blood Pressure 109/53 12/04/17 17:05 O2 Sat by Pulse Oximetry 96 12/04/17 17:05 Temperature 97.9 F 12/04/17 17:05 Pulse Rate 75 12/04/17 19:07 Respiratory Rate 22 12/04/17 19:07 Blood Pressure 100/34 12/04/17 19:07 O2 Sat by Pulse Oximetry 93 12/04/17 19:07 Oxygen Delivery Oxygen Delivery Nasal Cannula Medical Decision Making - Medical Records Medical records reviewed: Yes I reviewed the patient's medical records. - Lab Data Lab results reviewed: Yes I reviewed the patient's lab results. - Radiology Data Radiology results reviewed: Yes I reviewed the patient's radiology results. Cervical Spine CT 12/04/17 17:56 IMPRESSION: 1. No evidence of cervical spine fracture or listhesis. 2. Yyzsarch-qm-epzyia degenerative disc disease from C3 through C7. D/ / 12/04/2017 18:45:19 Alan Mahan MD / peterson Interpreting Provider: Alan Mahan MD Head CT 12/04/17 17:56 IMPRESSION: No acute intracranial abnormality. Stable chronic small vessel white matter ischemic changes. D/ / Ceasar Rob MD / Ceasar Rob MD Interpreting Provider: Ceasar Rob MD Lumbar Spine CT 12/04/17 17:56 IMPRESSION: 1. Mild to moderate severity degenerative disease and spondylosis predominates L3-4 and L2-3 with mild canal stenosis at these levels. 2. Transverse fracture is noted through the left L1 transverse process. No lumbar vertebra body fracture or listhesis is evident. 3. Bilateral SI joint osteoarthritis. 4. Calcific atherosclerotic disease aorta. 5. Incidentally noted on the left at T12 is anterior costovertebral dislocation. D/ / Javier Snider / Javier Snider Interpreting Provider: Javier Snider - EKG Data EKG #1 EKG attestation: Yes I reviewed and interpreted this EKG. EKG results narrative: ECG obtained 1822. Shows presence of ventricular pacing. 75bpm. No st elevation or depression.
[2017-12-04] MEDS ORDERED: *HR* HYDROcodone/Acet 10/325 mg TABLET PO ONE (18:53)
[2017-12-04] MEDS ORDERED: *HR* FentaNYL (PF) 100 MCG/2 ML VIAL IVP ONE (19:07)
[2017-12-04] MEDS ORDERED: Ondansetron 4 MG/2 ML VIAL IVP ONE (19:08)
--- NOTE | 2017-12-04 19:11 | Emergency Department Note ---
Disposition Clinical Impression: Fall Qualifiers: Encounter type: initial encounter Qualified Code(s): W19.XXXA - Unspecified fall, initial encounter Lumbar transverse process fracture Qualifiers: Encounter type: initial encounter Fracture type: closed Qualified Code(s): S32.009A - Unspecified fracture of unspecified lumbar vertebra, initial encounter for closed fracture Disposition: Admitted As Inpatient Condition: Fair Referrals: Patt Shin GROUND LAYER [Primary Care Provider] - Forms: ED Satisfaction Letter Back Pain HPI - General Chief Complaint: ED Back Pain/Injury Stated Complaint: fall-back injury Time Seen by Provider: 12/04/17 17:46 Source: patient Limitations: no limitations Nursing Notes Reviewed: Yes Vital Signs Reviewed: Yes - History of Present Illness HPI Narrative: Patient was signed by the prior provider. Please see their document for complete history and physical. - Related Data Home Medications Medication Instructions Recorded Confirmed Calcium Carbonate/Vitamin D3 1 tab PO DAILY 09/19/15 11/07/16 [Calcium 500-Vit D3 400 Tablet] Ferrous Sulfate [Iron] 325 mg PO DAILY 09/19/15 11/07/16 Gabapentin [Neurontin] 800 mg PO TID 09/19/15 11/07/16 Linagliptin [Tradjenta] 5 mg PO DAILY 09/19/15 11/07/16 Melatonin [Melatin] 3 mg PO HS 09/19/15 11/07/16 Omeprazole [PriLOSEC] 20 mg PO DAILY 09/19/15 11/07/16 Rivaroxaban [Xarelto] 20 mg PO DAILY 09/19/15 11/07/16 Sertraline [Zoloft] 100 mg PO DAILY 09/19/15 11/07/16 traMADol [Ultram] 50 mg PO TID PRN 09/19/15 11/07/16 Atorvastatin [Lipitor] 40 mg PO HS 05/17/16 11/07/16 Cyanocobalamin (Vitamin B-12) 1,000 mcg PO DAILY 05/17/16 11/07/16 [Vitamin B12] Donepezil [Aricept] 10 mg PO HS 05/17/16 11/07/16 Insulin ASPART [Novolog] 2 - 12 unit SQ TIDWM MDD per 05/17/16 11/07/16 sliding scale Insulin Glargine [Lantus] 14 unit SQ QAM 05/17/16 11/07/16 Ipratropium/Albuterol Neb [Duoneb] 3 ml IH Q6HR PRN 05/17/16 11/07/16 Ondansetron HCl [Zofran] 4 mg PO BID PRN 05/17/16 11/07/16 Oxygen 1 each .ROUTE AD 05/17/16 11/07/16 Ranolazine [Ranexa] 500 mg PO BID 05/17/16 11/07/16 Metoprolol XL (24 HR) Succ [Toprol 12.5 mg PO DAILY 10/05/16 11/07/16 Xl] Previous Rx's Medication Instructions Recorded Finasteride [Proscar] 5 mg PO DAILY #30 tablet 11/05/15 Amiodarone [Cordarone] 200 mg PO DAILY #30 tablet 11/11/16 Furosemide [Lasix] 40 mg PO DAILY #30 tablet 11/11/16 Lidocaine Patch [Lidoderm 5% patch] 1 each TP DAILY #30 adh..patch 11/11/16 Potassium Chloride [Klor-Con 10 meq PO BID #60 capsule.er 11/11/16 Sprinkle] Allergies Allergy/AdvReac Type Severity Reaction Status Date / Time amitriptyline Allergy Unknown unknown Verified 12/04/17 17:05 Constitutional: Denies: fever Eyes: Denies: vision change Cardiovascular: Denies: chest pain Respiratory: Denies: dyspnea Gastrointestinal: Denies: abdominal pain, nausea, vomiting, diarrhea Musculoskeletal: Reports: back pain Neurological: Reports: headache, weakness Psychiatric: Denies: anxiety, depression Endocrine: Denies: fatigue Hematological/Lymphatic: Denies: easy bleeding Past Medical History - Past Medical History Medical history: Reports: atrial fibrillation, COPD, coronary artery disease, DVT, diabetes, GERD, hyperlipidemia, hypertension, myocardial infarction Surgical history: Reports: angioplasty/stent, pacemaker/AICD Psychiatric history: Reports: depression - Social History Smoking Status: Current every day smoker Smokeless Tobacco Status: No Alcohol use: Reports: none Drug use: Reports: none Physical Exam - General Limitations: no limitations General appearance: alert - Head Head exam: atraumatic - Eye Eye exam: Present: normal appearance - ENT ENT exam: normal exam - Neck Neck exam: Present: normal inspection, full ROM, trachea midline. Absent: tenderness - Chest Chest inspection: Present: normal inspection, symmetric chest wall rise - Respiratory Respiratory exam: Present: normal lung sounds bilaterally. Absent: respiratory distress - Cardiovascular Cardiovascular exam: Present: regular rate - Abdominal Exam Abdominal exam: Present: soft - Expanded Lower Extremity Exam Hip/Pelvis exam: Present: normal inspection. Absent: tenderness Upper leg exam: Present: normal inspection. Absent: tenderness Knee exam: Present: normal inspection. Absent: tenderness Neurovascular/Tendon exam: Present: normal capillary refill. Absent: pulse deficit, motor deficit, sensory deficit - Neurological Exam Neurological exam: Present: alert, CN II-XII intact - Expanded Neurological Exam DTR: patellar (L): 1+, patellar (R): 1+ Course Course Narrative: Patient is an elderly male who suffered a transverse process fracture after a fall yesterday. There to be a ground-level fall. Patient's neurovascular intact. Patient had imaging of the head cervical and lumbar spine. - Reevaluation(s) Reevaluation #1: The prior provider spoke with Dr. Fulton as well as the hospitalist. Dr. Fulton is agreeable to consult. Patient will be admitted to the hospital service for pain control and physical therapy and discharge planning. I briefly evaluated the patient while he was in the emergency department. Patient was already admitted to the hospital service with spine surgery consult by the prior resident. Time: 19:11 Vital Signs Temperature 97.9 F 12/04/17 17:05 Pulse Rate 80 12/04/17 17:05 Respiratory Rate 20 12/04/17 17:05 Blood Pressure 109/53 12/04/17 17:05 O2 Sat by Pulse Oximetry 96 12/04/17 17:05 Temperature 97.9 F 12/04/17 17:05 Pulse Rate 75 12/04/17 19:07 Respiratory Rate 22 12/04/17 19:07 Blood Pressure 100/34 12/04/17 19:07 O2 Sat by Pulse Oximetry 93 12/04/17 19:07 Oxygen Delivery Oxygen Delivery Nasal Cannula Back Pain/Injury - Radiology Data Radiology results reviewed: Yes I reviewed the patient's radiology results. Cervical Spine CT 12/04/17 17:56 IMPRESSION: 1. No evidence of cervical spine fracture or listhesis. 2. Andfrrpz-ya-rjsszq degenerative disc disease from C3 through C7. D/ / 12/04/2017 18:45:19 Alan Mahan MD / peterson Interpreting Provider: Alan Mahan MD Head CT 12/04/17 17:56 IMPRESSION: No acute intracranial abnormality. Stable chronic small vessel white matter ischemic changes. D/ / Ceasar Rob MD / Ceasar Rob MD Interpreting Provider: Ceasar Rob MD Lumbar Spine CT 12/04/17 17:56 IMPRESSION: 1. Mild to moderate severity degenerative disease and spondylosis predominates L3-4 and L2-3 with mild canal stenosis at these levels. 2. Transverse fracture is noted through the left L1 transverse process. No lumbar vertebra body fracture or listhesis is evident. 3. Bilateral SI joint osteoarthritis. 4. Calcific atherosclerotic disease aorta. 5. Incidentally noted on the left at T12 is anterior costovertebral dislocation. D/ / Javier Snider / Javier Snider Interpreting Provider: Javier Snider
--- NOTE | 2017-12-04 19:36 | Emergency Department Note ---
Disposition Clinical Impression: Fall Qualifiers: Encounter type: initial encounter Qualified Code(s): W19.XXXA - Unspecified fall, initial encounter Lumbar transverse process fracture Qualifiers: Encounter type: initial encounter Fracture type: closed Qualified Code(s): S32.009A - Unspecified fracture of unspecified lumbar vertebra, initial encounter for closed fracture Disposition: Admitted As Inpatient Condition: Fair Referrals: Patt Shin ABRASIV[employer] SALES REPRESENTATIVE [Primary Care Provider] - Forms: ED Satisfaction Letter General Adult HPI - General Chief complaint: ED Back Pain/Injury Stated complaint: fall-back injury Time Seen by Provider: 12/04/17 17:46 Source: patient Mode of arrival: ambulatory Limitations: no limitations - History of Present Illness Pain Scale: 8 - Related Data Home Medications Medication Instructions Recorded Confirmed Calcium Carbonate/Vitamin D3 1 tab PO DAILY 09/19/15 11/07/16 [Calcium 500-Vit D3 400 Tablet] Ferrous Sulfate [Iron] 325 mg PO DAILY 09/19/15 11/07/16 Gabapentin [Neurontin] 800 mg PO TID 09/19/15 11/07/16 Linagliptin [Tradjenta] 5 mg PO DAILY 09/19/15 11/07/16 Melatonin [Melatin] 3 mg PO HS 09/19/15 11/07/16 Omeprazole [PriLOSEC] 20 mg PO DAILY 09/19/15 11/07/16 Rivaroxaban [Xarelto] 20 mg PO DAILY 09/19/15 11/07/16 Sertraline [Zoloft] 100 mg PO DAILY 09/19/15 11/07/16 traMADol [Ultram] 50 mg PO TID PRN 09/19/15 11/07/16 Atorvastatin [Lipitor] 40 mg PO HS 05/17/16 11/07/16 Cyanocobalamin (Vitamin B-12) 1,000 mcg PO DAILY 05/17/16 11/07/16 [Vitamin B12] Donepezil [Aricept] 10 mg PO HS 05/17/16 11/07/16 Insulin ASPART [Novolog] 2 - 12 unit SQ TIDWM MDD per 05/17/16 11/07/16 sliding scale Insulin Glargine [Lantus] 14 unit SQ QAM 05/17/16 11/07/16 Ipratropium/Albuterol Neb [Duoneb] 3 ml IH Q6HR PRN 05/17/16 11/07/16 Ondansetron HCl [Zofran] 4 mg PO BID PRN 05/17/16 11/07/16 Oxygen 1 each .ROUTE AD 05/17/16 11/07/16 Ranolazine [Ranexa] 500 mg PO BID 05/17/16 11/07/16 Metoprolol XL (24 HR) Succ [Toprol 12.5 mg PO DAILY 10/05/16 11/07/16 Xl] Previous Rx's Medication Instructions Recorded Finasteride [Proscar] 5 mg PO DAILY #30 tablet 11/05/15 Amiodarone [Cordarone] 200 mg PO DAILY #30 tablet 11/11/16 Furosemide [Lasix] 40 mg PO DAILY #30 tablet 11/11/16 Lidocaine Patch [Lidoderm 5% patch] 1 each TP DAILY #30 adh..patch 11/11/16 Potassium Chloride [Klor-Con 10 meq PO BID #60 capsule.er 11/11/16 Sprinkle] Allergies Allergy/AdvReac Type Severity Reaction Status Date / Time amitriptyline Allergy Unknown unknown Verified 12/04/17 17:05 Constitutional: Denies: fever Eyes: Denies: vision change Cardiovascular: Denies: chest pain Respiratory: Denies: dyspnea Gastrointestinal: Denies: abdominal pain, nausea, vomiting, diarrhea Musculoskeletal: Reports: back pain Neurological: Reports: headache, weakness Psychiatric: Denies: anxiety, depression Endocrine: Denies: fatigue Hematological/Lymphatic: Denies: easy bleeding Past Medical History - Past Medical History Medical history: Reports: atrial fibrillation, COPD, coronary artery disease, DVT, diabetes, GERD, hyperlipidemia, hypertension, myocardial infarction Surgical history: Reports: angioplasty/stent, pacemaker/AICD Psychiatric history: Reports: depression - Social History Smoking Status: Current every day smoker Smokeless Tobacco Status: No Alcohol use: Reports: none Drug use: Reports: none Physical Exam - General Limitations: no limitations General appearance: alert Course Vital Signs Temperature 97.9 F 12/04/17 17:05 Pulse Rate 80 12/04/17 17:05 Respiratory Rate 20 12/04/17 17:05 Blood Pressure 109/53 12/04/17 17:05 O2 Sat by Pulse Oximetry 96 12/04/17 17:05 Temperature 97.9 F 12/04/17 17:05 Pulse Rate 75 12/04/17 19:07 Respiratory Rate 22 12/04/17 19:07 Blood Pressure 100/34 12/04/17 19:07 O2 Sat by Pulse Oximetry 93 12/04/17 19:07 Oxygen Delivery Oxygen Delivery Nasal Cannula Attestation Statement - Attestation Attestation: I examined this patient and my medical decision-making was reviewed with the Resident Physician. I agree with the documented findings, disposition and treatment plan as described except to the extent set forth below. Patient signed out pending admission. I saw this patient with Dr. Baron. Patient has had multiple mechanical falls over the past 24 hours. He was found to have a transverse process fracture in his spine. Patient will be admitted for PT OT eval. He is unable to ambulate here in the department. He is awake and alert with no concerns on my evaluation. Moving all extremities. Patient admitted to medicine.
[2017-12-04 19:51] LABS: Basophils % 0.1 %; Hematocrit 34.7 % (37.5-50.1); Immature Granulocytes % 0.7 % (0-4); Lymphocytes # 0.8 K/mcL (0.6-4.6); Lymphocytes % 3.5 %; Mean Corpuscular HGB Conc 31.7 g/dL (31.6-35.5); Mean Corpuscular Hemoglobin 28.7 pg (28.0-33.3); Mean Corpuscular Volume 90.6 fL (83.0-100.0); Mean Platelet Volume 10.5 fL (9.4-12.4); Monocytes # 1.5 K/mcL (0.0-1.3); Monocytes % 6.9 %; Neutrophils # 19.2 K/mcL (1.6-8.9); Platelet Count 222 K/mcL (140-400); Red Blood Count 3.83 M/mcL (4.19-5.50); Red Cell Distribution Width 17.1 % (11.5-14.5); Segmented Neutrophils % 88.8 %
[2017-12-04 19:56] LABS: INR 1.9; Prothrombin Time 20.7 Seconds (9.4-12.1)
[2017-12-04 20:07] LABS: Albumin 3.9 g/dL (3.5-5.7); Albumin/Globulin Ratio 1.1 (1.1-2.2); Bilirubin,Total 0.5 mg/dL (0.3-1.0); Calcium 8.9 mg/dL (8.6-10.3); Globulin 3.7 g/dL (2.4-3.5); Potassium 4.1 mEq/L (3.5-5.1); Total Protein 7.6 g/dL (6.4-8.9)
[2017-12-04] MEDS ORDERED: *HR* HYDROcodone/Acet 5/325 mg TABLET PO PRN (20:13)
[2017-12-04] MEDS ORDERED: D5% in Water 1,000 ML IVC PRN (20:24)
[2017-12-04] MEDS ORDERED: Dextrose Gel 15 GM/37.5 ML TUBE PO PRN ×2 (20:24)
[2017-12-04] MEDS ORDERED: *HR* Dextrose 50 % in Water (Syg) 50 ML SYRINGE IVP PRN (20:24)
[2017-12-04] MEDS ORDERED: Naloxone 0.4 MG/ML INJ IVP PRN (20:25)
[2017-12-04] MEDS ORDERED: 0.9 % Sodium Chloride 1,000 ML IVC ONE (20:25)
--- NOTE | 2017-12-04 20:26 | Internal Med History&Physical ---
Date of Encounter: 12/04/17 Time of Encounter: 20:17 Internal Medicine - H&P: HPI Chief complaint: Fall Admitted From: Emergency Dept Plans for Post Hospital Care: Home History of present illness: Mr. Mistry is a 81 year old male with past medical history of atrial fibrillation on Xarelto and COPD O 2 dep 2 Lt PRN, dementia and CHF EF 20% s/p AICD diabetes insulin dep ,failure to drive presents after a fall at home yesterday. He actually fell 3 times yesterday. He has had many falls in the past. No LOC. He was found to have a left L1 transverse fracture that will likely need operative management per the ED staff. They spoke to Dr. Prabhakar who won't see the patient till Thursday and wanted the patient in a brace for now. CT head negative for acute findings. Patient is not a great historian due to dementia. His son is bedside and daughter in law as well and they dont seem to know much about the circumstances of his fall. The patient tried to tell me that he fell by tripping over steps in the bathroom yesterday. Then he fell again in the bedroom. Both times hitting his head and back. Again no LOC. Does not report palpiations. Reports non-productive cough. No fever/chills/nausea/vomiting/ chest pain/abdominal pain/urinary symptoms/numbenss/tingling. He is walker dependent at baseline. Laboratory work up in the ED showed leukocytosis of 21.7. No fever. Creatinine of 1.53 and was .91 back in October. Past Med Surg Social Fam HX - Past Medical History Medical history: atrial fibrillation, COPD, coronary artery disease, DVT, diabetes, GERD, hyperlipidemia, hypertension, myocardial infarction Psychiatric history: depression - Past Surgical History Surgical History: angioplasty/stent, pacemaker/AICD - Social History Smoking Status: Current every day smoker Smokeless Tobacco Status: No Alcohol use: none Drug use: none - Family History Father Family Member Ethnicity: Non- Hx Family Cardiac Disorders: Yes Hx Family Respiratory Disorders: Yes Hx Family Cancer: No Hx Family GI Disorders: No Hx Family Endocrine Disorder: Yes Hx Family Neuromuscular Disorders: No Hx Family Neurologic Disorders: No Hx Family HEENT Disorders: No Hx Family Autoimmune Disorders: No Internal Medicine - H&P: Meds Calcium Carbonate/Vitamin D3 [Calcium 500-Vit D3 400 Tablet] 1 tab PO BID [History] Ferrous Sulfate [Iron] 325 mg PO BID 09/19/15 [History] Linagliptin [Tradjenta] 5 mg PO DAILY 09/19/15 [History] Melatonin [Melatin] 3 mg PO HS 09/19/15 [History] Omeprazole [PriLOSEC] 20 mg PO DAILY 09/19/15 [History] Rivaroxaban [Xarelto] 20 mg PO DAILY 09/19/15 [History] Sertraline [Zoloft] 100 mg PO DAILY 09/19/15 [History] traMADol [Ultram] 50 mg PO TID PRN 09/19/15 [History] Finasteride [Proscar] 5 mg PO DAILY #30 tablet 11/05/15 [Rx] Atorvastatin [Lipitor] 40 mg PO HS 05/17/16 [History] Donepezil [Aricept] 10 mg PO HS 05/17/16 [History] Insulin ASPART [Novolog] 0 unit SQ TIDWM 05/17/16 [History] Ipratropium/Albuterol Neb [Duoneb] 3 ml IH Q6HR PRN 05/17/16 [History] Ondansetron HCl [Zofran] 4 mg PO BID PRN 05/17/16 [History] Oxygen 2 l NS HS 05/17/16 [History] Ranolazine [Ranexa] 500 mg PO BID 05/17/16 [History] Metoprolol XL (24 HR) Succ [Toprol Xl] 12.5 mg PO DAILY 10/05/16 [History] Amiodarone [Cordarone] 200 mg PO DAILY #30 tablet 11/11/16 [Rx] Furosemide [Lasix] 40 mg PO DAILY #30 tablet 11/11/16 [Rx] Lidocaine Patch [Lidoderm 5% patch] 1 each TP DAILY #30 adh..patch 11/11/16 [Rx] Potassium Chloride [Klor-Con Sprinkle] 10 meq PO BID #60 capsule.er 11/11/16 [Rx ] Fluticasone/Salmeterol [Advair Hfa 230-21 Mcg Inhaler] 2 puff IH BID 12/04/17 [ History] Gabapentin [Neurontin] 800 mg PO TID 12/04/17 [History] Insulin Degludec [Tresiba Flextouch U-100] 42 unit SQ HS 12/04/17 [History] Loratadine [Claritin] 10 mg PO DAILY 12/04/17 [History] Roflumilast [Daliresp] 500 mcg PO DAILY 12/04/17 [History] Umeclidinium [place] [Incruse Ellipta] 62.5 mcg IH DAILY 12/04/17 [History] 3 Allergy/AdvReac Type Severity Reaction Status Date / Time amitriptyline Allergy Unknown unknown Verified 12/04/17 17:05 All Systems PM: A 10-system review of systems was performed and is negative for pertinent findings except as documented above in the HPI. Review of systems: All systems reviewed are negative except for as mentioned above - Constitutional Vitals: Temp Pulse Resp BP Pulse Ox 97.9 F 75 22 100/34 93 12/04/17 17:05 12/04/17 19:07 12/04/17 19:07 12/04/17 19:07 12/04/17 19:07 Exam: GEN: NAD HEENT: AT, NC, No cyanosis, oral mucosa is moist, No JVD Lymphatics: No lymphadenoapthy Eyes: Extrocular muscles intact, anicteric CVS:RRR. S1, S2, No m/r/g RESP: CTAB ABD: Soft, NT, ND, +BS EXT: No edema, No rashes, 2+ DP NEURO: Nonfocal, CN II-XII intact, No focal motor or sensory deficits Psych: Cooperative, Not anxious or depressed Internal Med - H&P Results - Labs CBC & Chem 7: 12/04/17 19:13 12/04/17 19:13 Labs: Short CBC 12/04/17 Range/Units 19:13 WBC 21.7 H (4.3-11.1) K/mcL Hgb 11.0 L (12.9-16.9) g/dL Hct 34.7 L (37.5-50.1) % Plt Count 222 (140-400) K/mcL Neutrophils # 19.2 H (1.6-8.9) K/mcL BMP 12/04/17 19:13 Sodium 136 Potassium 4.1 Chloride 101 Carbon Dioxide 26 BUN 42 H Creatinine 1.53 H Glucose 59 L Calcium 8.9 Liver Function 12/04/17 Range/Units 19:13 Total Bilirubin 0.5 (0.3-1.0) mg/dL AST 26 (13-39) Units/L ALT 19 (7-52) Units/L Alkaline Phosphatase 91 (34-104) Units/L Albumin 3.9 (3.5-5.7) g/dL - Impressions ITS Impressions Cervical Spine CT 12/04/17 17:56 IMPRESSION: 1. No evidence of cervical spine fracture or listhesis. 2. Hpapmcnk-yx-jdffiz degenerative disc disease from C3 through C7. D/ / 12/04/2017 18:45:19 Alan Mahan MD / peterson Interpreting Provider: Alan Mahan MD Head CT 12/04/17 17:56 IMPRESSION: No acute intracranial abnormality. Stable chronic small vessel white matter ischemic changes. D/ / Ceasar Rob MD / Ceasar Rob MD Interpreting Provider: Ceasar Rob MD Lumbar Spine CT 12/04/17 17:56 IMPRESSION: 1. Mild to moderate severity degenerative disease and spondylosis predominates L3-4 and L2-3 with mild canal stenosis at these levels. 2. Transverse fracture is noted through the left L1 transverse process. No lumbar vertebra body fracture or listhesis is evident. 3. Bilateral SI joint osteoarthritis. 4. Calcific atherosclerotic disease aorta. 5. Incidentally noted on the left at T12 is anterior costovertebral dislocation. D/ / Javier Snider / Javier Snider Interpreting Provider: Javier Snider - Assessment and plan (1) Fall Current Visit: Yes Status: Acute Assessment and plan: Unclear circumstances. Likely mechanical as patient is weak at baseline. Happened 3 times yesterday. Glucose 59 on labs. ??hypoglycemic episodes at home.Probably best to take him off Xarelto. Will let cardiology decide. Check echo. check orthostatics. ??vasovagal. May need ICD interrogation. Qualifiers: Encounter type: initial encounter Qualified Code(s): W19.XXXA - Unspecified fall, initial encounter (2) Lumbar transverse process fracture Current Visit: Yes Status: Acute Assessment and plan: Pain control. TLSO brace for now. Orthopedics consult. Consult cardiology for preoperative clearance in case any surgical intervention. The patient may likely to be placed after discharge. Qualifiers: Encounter type: initial encounter Fracture type: closed Qualified Code(s) : S32.009A - Unspecified fracture of unspecified lumbar vertebra, initial encounter for closed fracture (3) Leukocytosis Current Visit: No Status: Acute Assessment and plan: Unclear etiology. Possibly reactive. He reports a non-productive cough. Check a chest x-ray as well as urinalysis. He seems to have had similar issues back in 2017 with leukocytosis with no etiology clear and seems to have had that resolved afterwards. Qualifiers: Leukocytosis type: leukemoid reaction Qualified Code(s): D72.823 - Leukemoid reaction (4) ARIEL (acute kidney injury) Current Visit: Yes Status: Acute Assessment and plan: Likely secondary to poor oral intake. Cannot given fluids unfortunately given his ejection fraction of about 20%. Encourage by mouth intake. Hold nephrotoxins. (5) Afib Current Visit: Yes Status: Acute Assessment and plan: Patient is a V paced. Hold Xarelto for now in case any surgical needs. Qualifiers: Atrial fibrillation type: paroxysmal Qualified Code(s): I48.0 - Paroxysmal atrial fibrillation (6) Ischemic cardiomyopathy Current Visit: No Status: Chronic Assessment and plan: Resume home medications. Per documentations the patient's EF is 20%. I do not have any echos on file. We will repeat an echocardiogram. We will ask cardiology for preop clearance in case patient needs any surgeries for his back fracture. (7) Diabetes mellitus Current Visit: No Status: Chronic Assessment and plan: Insulin sliding scale. Accu-Cheks. Glucose 59 at home. Hold basal insulin. Check A1c. Qualifiers: Diabetes mellitus type: type 2 Diabetes mellitus penitentiary insulin use: with penitentiary use Diabetes mellitus complication status: with kidney complications Diabetes mellitus complication detail: with chronic kidney disease Chronic kidney disease stage: stage 3 (moderate) Qualified Code(s): E11.22 - Type 2 diabetes mellitus with diabetic chronic kidney disease; N18.3 - Chronic kidney disease, stage 3 (moderate); N18.3 - Chronic kidney disease, stage 3 (moderate); Z79.4 - terminal clerk (current) use of insulin; Z79.4 - jail (current) use of insulin; Z79.4 - terminal clerk (current) use of insulin; Z79.4 - jail (current) use of insulin (8) COPD (chronic obstructive pulmonary disease) Current Visit: No Status: Chronic Assessment and plan: Resume home inhalers. Qualifiers: COPD type: unspecified COPD Qualified Code(s): J44.9 - Chronic obstructive pulmonary disease, unspecified (9) DVT prophylaxis Current Visit: No Status: Acute Assessment and plan: Heparin subcutaneous - Time Spent With Patient Total time spent is greater than 50% in coordination of care (as documented) at patient's floor/unit and/or counseling patient:
[2017-12-04] MEDS ORDERED: Insulin LISPRO 300 UNITS/3 ML VIAL SQ SCH (21:00)
[2017-12-04] MEDS: Levofloxacin 500 MG/100 ML 500 MG/100 ML BAG IVPB SCH (23:39)
[2017-12-04] MEDS: *HR* Heparin 5,000 UNIT/ML VIAL SQ SCH (23:39)
[2017-12-04] MEDS: *HR* HYDROcodone/Acet 5/325 mg TABLET PO PRN (23:50)
--- NOTE | 2017-12-05 00:18 | Event Note ---
Date of Encounter: 12/05/17 Time of Encounter: 00:17 Patient's chest x-ray comes back with right lower lobe pneumonia. We will start the patient on Levaquin
[2017-12-05 05:08] LABS: Bilirubin,Urine Negative (Negative); Blood,Urine Negative (Negative); Clarity,Urine Clear (Clear); Color,Urine Yellow (Yellow); Glucose,Urine (UA) Normal (Normal); Ketones,Urine Negative (Negative); Leukocyte Esterase,Urine Negative (Negative); Nitrite,Urine Negative (Negative); PH,Urine 5.5 pH Units (5.0-8.0); Protein,Urine Trace mg/dL (Neg-Trace); Specific Gravity,Urine 1.024 (1.010-1.025); Urobilinogen,Urine Normal (Normal)
[2017-12-05 05:09] LABS: Bacteria,Urine None Seen per hpf (None-Few); Hyaline Casts,Urine None Seen per lpf (None-Few); RBC,Urine 0-3 per hpf (0-3); Squamous Epithelial Cell,Urine Many per lpf (None-Few); WBC,Urine 0-3 per hpf (0-3)
[2017-12-05] MEDS: *HR* Heparin 5,000 UNIT/ML VIAL SQ SCH ×3 (06:33→21:46)
[2017-12-05] MEDS: *HR* HYDROcodone/Acet 5/325 mg TABLET PO PRN ×3 (06:34→18:12)
[2017-12-05 08:15] LABS: Hematocrit 29.8 % (37.5-50.1); Hemoglobin 9.6 g/dL (12.9-16.9); Immature Granulocytes % 0.5 % (0-4); Immature Platelets 3.7 % (1.1-6.1); Lymphocytes # 1.2 K/mcL (0.6-4.6); Lymphocytes % 5.7 %; Mean Corpuscular HGB Conc 32.2 g/dL (31.6-35.5); Mean Corpuscular Hemoglobin 29.4 pg (28.0-33.3); Mean Corpuscular Volume 91.1 fL (83.0-100.0); Mean Platelet Volume 10.2 fL (9.4-12.4); Monocytes # 1.7 K/mcL (0.0-1.3); Neutrophils # 17.7 K/mcL (1.6-8.9); Platelet Count 163 K/mcL (140-400); Red Blood Count 3.27 M/mcL (4.19-5.50); Red Cell Distribution Width 17.2 % (11.5-14.5); Segmented Neutrophils % 85.8 %
[2017-12-05 08:32] LABS: BUN/Creatinine Ratio 28 (6-26); Blood Urea Nitrogen 37 mg/dL (8-23); Calcium 8.2 mg/dL (8.6-10.3); Carbon Dioxide 25 mEq/L (23-29); Chloride 103 mEq/L (98-107); Glucose 109 mg/dL (70-105); Osmolality,Calculated 287 (280-300); Potassium 4.1 mEq/L (3.5-5.1); Sodium 134 mEq/L (136-145); eGFR For African Americans > 60 (> 60); eGFR For Non-African Americans 53 (> 60)
[2017-12-05] MEDS: Insulin LISPRO 300 UNITS/3 ML VIAL SQ SCH ×4 (08:38→21:47)
[2017-12-05] MEDS: Calcium 500-Vit D3 PO SCH ×2 (08:38→21:46)
[2017-12-05] MEDS: Loratadine 10 MG TABLET PO SCH (08:46)
[2017-12-05] MEDS: Metoprolol XL (24 HR) Succ 25 MG TAB.ER.24H PO SCH (08:46)
[2017-12-05] MEDS: Finasteride 5 MG TABLET PO SCH (08:46)
[2017-12-05] MEDS: Ranolazine 500 MG TAB.ER.12H PO SCH ×2 (08:46→21:44)
[2017-12-05] MEDS: *HR* Amiodarone 200 MG TABLET PO SCH (08:46)
[2017-12-05] MEDS: Gabapentin 400 MG CAPSULE PO SCH ×3 (08:47→21:45)
--- NOTE | 2017-12-05 09:20 | Cardiology Consult Note ---
Date of Encounter: 12/05/17 Time of Encounter: 09:18 Assessment and Plan (1) CHF (congestive heart failure) Current Visit: No Status: Acute Currently compensated chronic congestive heart failure with ejection fraction 20 % status post ICD. Patient denies any orthopnea PND, presyncope or syncope. Patient is moderate risk for cardiac events with back surgery since he currently is compensated. Qualifiers: Qualified Code(s): I50.22 - Chronic systolic (congestive) heart failure (2) Afib Current Visit: Yes Status: Acute Chronic atrial fibrillation on anticoagulations for stroke risk reduction currently paced rhythm. Patient may hold anticoagulation for surgery with a modest risk increase of CVA. Continue rate controlling medications perioperatively. Considered as moderate risk as long as heart rate is less than 100 bpm Qualifiers: Atrial fibrillation type: chronic Qualified Code(s): I48.2 - Chronic atrial fibrillation Discussion w patient/family: The assessment and plan as outlined above was discussed with the patient and/or family members who expressed understanding and agreement. All questions were answered. Thank you for involving us in the care of your patient. Please call with any questions. History of Present Illness Consult date: 12/05/17 Consult reason: pre op Chief complaint: back pain History of present illness: Mr. Mistry is a 82 year old male with history of chronic atrial fibrillation, COPD , dementia, diabetes, known congestive heart failure with ejection fraction 20% status post-ICD switch to the right side due to an infected device at [facility] presents after a fall tripping over steps. Patient denies any chest pain, shortness breath condescending to orthopnea, PND, presyncope or syncope. EKG shows paced rhythm. Past Med Surg Social Fam HX - Past Medical History Medical history: atrial fibrillation, COPD, coronary artery disease, DVT, diabetes, GERD, hyperlipidemia, hypertension, myocardial infarction Psychiatric history: depression - Past Surgical History Surgical History: angioplasty/stent, pacemaker/AICD - Social History Smoking Status: Current every day smoker Packs per day: 0.5 Smokeless Tobacco Status: No Alcohol use: none Drug use: none - Family History Father Family Member Ethnicity: Non- Hx Family Cardiac Disorders: Yes Hx Family Respiratory Disorders: Yes Hx Family Cancer: No Hx Family GI Disorders: No Hx Family Endocrine Disorder: Yes Hx Family Neuromuscular Disorders: No Hx Family Neurologic Disorders: No Hx Family HEENT Disorders: No Hx Family Autoimmune Disorders: No Medications and Allergies Calcium Carbonate/Vitamin D3 [Calcium 500-Vit D3 400 Tablet] 1 tab PO BID [History] Ferrous Sulfate [Iron] 325 mg PO BID 09/19/15 [History] Linagliptin [Tradjenta] 5 mg PO DAILY 09/19/15 [History] Melatonin [Melatin] 3 mg PO HS 09/19/15 [History] Omeprazole [PriLOSEC] 20 mg PO DAILY 09/19/15 [History] Rivaroxaban [Xarelto] 20 mg PO DAILY 09/19/15 [History] Sertraline [Zoloft] 100 mg PO DAILY 09/19/15 [History] traMADol [Ultram] 50 mg PO TID PRN 09/19/15 [History] Finasteride [Proscar] 5 mg PO DAILY #30 tablet 11/05/15 [Rx] Atorvastatin [Lipitor] 40 mg PO HS 05/17/16 [History] Donepezil [Aricept] 10 mg PO HS 05/17/16 [History] Insulin ASPART [Novolog] 0 unit SQ TIDWM 05/17/16 [History] Ipratropium/Albuterol Neb [Duoneb] 3 ml IH Q6HR PRN 05/17/16 [History] Ondansetron HCl [Zofran] 4 mg PO BID PRN 05/17/16 [History] Oxygen 2 l NS HS 05/17/16 [History] Ranolazine [Ranexa] 500 mg PO BID 05/17/16 [History] Metoprolol XL (24 HR) Succ [Toprol Xl] 12.5 mg PO DAILY 10/05/16 [History] Amiodarone [Cordarone] 200 mg PO DAILY #30 tablet 11/11/16 [Rx] Furosemide [Lasix] 40 mg PO DAILY #30 tablet 11/11/16 [Rx] Lidocaine Patch [Lidoderm 5% patch] 1 each TP DAILY #30 adh..patch 11/11/16 [Rx] Potassium Chloride [Klor-Con Sprinkle] 10 meq PO BID #60 capsule.er 11/11/16 [Rx ] Fluticasone/Salmeterol [Advair Hfa 230-21 Mcg Inhaler] 2 puff IH BID 12/04/17 [ History] Gabapentin [Neurontin] 800 mg PO TID 12/04/17 [History] Insulin Degludec [Tresiba Flextouch U-100] 42 unit SQ HS 12/04/17 [History] Loratadine [Claritin] 10 mg PO DAILY 12/04/17 [History] Roflumilast [Daliresp] 500 mcg PO DAILY 12/04/17 [History] Umeclidinium [place] [Incruse Ellipta] 62.5 mcg IH DAILY 12/04/17 [History] 3 Allergy/AdvReac Type Severity Reaction Status Date / Time amitriptyline Allergy Unknown unknown Verified 12/04/17 17:05 All Systems Review: The remainder of the systems were reviewed and are negative Physical Examination Vital Signs, Last 4 Hours Temp Pulse Resp BP Pulse Ox 12/05/17 08:41 97.6 F 77 17 107/55 90 General: Conversant, No Apparent Distress HEENT: Atraumatic, Normocephaly, Mucus Membranes Moist Neck: No JVD, Normal carotid pulses Cardiac: Reg Rate and Rhythm, Normal S1 and S2, No Murmur Lungs: Normal Breath Sounds, No Wheeze, Rales, Rhonchi Neuro: Alert and responsive, No focal deficits noted Abdomen: Soft, Non-Tender Skin: No rashes noted on visualized skin Musculoskeletal: No Chest Wall Tenderness Extremities: No Clubbing, No Cyanosis, No Edema, Normal Pulses Results 12/05/17 08:05 12/05/17 08:05 Lab Results 12/05/17 12/05/17 12/05/17 01:05 08:05 08:05 WBC 20.7 H Hgb 9.6 L Hct 29.8 L Plt Count 163 Sodium 134 L Potassium 4.1 Chloride 103 Carbon Dioxide 25 BUN 37 H Creatinine 1.30 Glucose 109 H Calcium 8.2 L TSH 0.704 Consult Discharge Plan - Plan Referrals: Patt Shin, DAT [Primary Care Provider] -
[2017-12-05] MEDS: Budesonide/Formoterol 160/4.5 MDI IH SCH ×2 (10:11→21:33)
[2017-12-05] MEDS ORDERED: Perflutren Lipid Microsphere 1.3 ML in 0.9 % Sodium Chloride 8.7 ML IVP ONE (14:05)
--- NOTE | 2017-12-05 14:47 | Internal Med Progress Note ---
Date of Encounter: 12/05/17 Time of Encounter: 14:47 - Assessment and plan (1) Lumbar transverse process fracture Current Visit: Yes Status: Acute Assessment and plan: From fall. To be evaluated by spine surgery. At this time patient not willing to consider surgery. Will follow up on recommendations for spine surgery. Pain control. Physical therapy after evaluation by spine surgery Qualifiers: Encounter type: initial encounter Fracture type: closed Qualified Code(s) : S32.009A - Unspecified fracture of unspecified lumbar vertebra, initial encounter for closed fracture (2) Diabetes mellitus Current Visit: Yes Status: Chronic Assessment and plan: Blood sugars are elevated. Will add long-acting insulin. Also increase sliding scale coverage Qualifiers: Diabetes mellitus type: type 2 Diabetes mellitus penitentiary insulin use: with penitentiary use Diabetes mellitus complication status: with kidney complications Diabetes mellitus complication detail: with chronic kidney disease Chronic kidney disease stage: stage 3 (moderate) Qualified Code(s): E11.22 - Type 2 diabetes mellitus with diabetic chronic kidney disease; N18.3 - Chronic kidney disease, stage 3 (moderate); N18.3 - Chronic kidney disease, stage 3 (moderate); Z79.4 - long term care pharmacist (current) use of insulin; Z79.4 - [facility] (current) use of insulin; Z79.4 - long term care pharmacist (current) use of insulin; Z79.4 - long term care pharmacist (current) use of insulin (3) COPD (chronic obstructive pulmonary disease) Current Visit: Yes Status: Chronic Assessment and plan: Not in acute exacerbation. Will place patient on bronchodilators as needed. Use O2 supplementation as needed. Qualifiers: COPD type: unspecified COPD Qualified Code(s): J44.9 - Chronic obstructive pulmonary disease, unspecified (4) Ischemic cardiomyopathy Current Visit: Yes Status: Chronic Assessment and plan: With poor EF. Cardiology input appreciated. Continue beta meera. We will resume Lasix from tomorrow. (5) Leukocytosis Current Visit: Yes Status: Acute Assessment and plan: Uncertain etiology. Leukocytosis persists but no clear signs of infection. Qualifiers: Leukocytosis type: leukemoid reaction Qualified Code(s): D72.823 - Leukemoid reaction (6) Fall Current Visit: Yes Status: Acute Assessment and plan: Likely due to orthostasis. Patient's vital signs were positive for orthostatic hypotension initially. Patient did receive IV fluids. His blood pressure is now much better. Qualifiers: Encounter type: initial encounter Qualified Code(s): W19.XXXA - Unspecified fall, initial encounter (7) Afib Current Visit: Yes Status: Chronic Assessment and plan: Rate controlled. Anticoagulation held in anticipation for possible surgery based on spine surgery recommendations. Will resume Xarelto if no surgery planned. Qualifiers: Atrial fibrillation type: chronic Qualified Code(s): I48.2 - Chronic atrial fibrillation (8) ARIEL (acute kidney injury) Current Visit: Yes Status: Resolved Assessment and plan: Renal function back to baseline. (9) DVT prophylaxis Current Visit: Yes Status: Acute Assessment and plan: receiving subcutaneous heparin - Time Spent With Patient Total time spent is greater than 50% in coordination of care (as documented) at patient's floor/unit and/or counseling patient: - Subjective Interval history: Patient is currently sitting up in bed. Reports pain well controlled at this time in his low back. Denies any lower extremity weakness. No bowel or bladder incontinence. Says that he does not want any surgical intervention and would like medications to treat his pain instead. - Constitutional Vitals: Temp Pulse Resp BP Pulse Ox 98.0 F 70 16 117/65 93 12/05/17 12:23 12/05/17 12:23 12/05/17 12:23 12/05/17 12:23 12/05/17 12:23 General appearance: Present: cooperative, disheveled, A&O X 3, answers questions appropriately - Neck Neck exam general surgery: Present: supple, trachea midline. Absent: lymphadenopathy - Respiratory Respiratory exam: Present: prolonged expiratory phase, wheezes. Absent: accessory muscle use, rales, rhonchi - Cardiovascular Cardiovascular exam: Present: RRR, +S1, +S2. Absent: diastolic murmur, gallop, rubs, systolic murmur - GI/Abdominal GI/Abdominal exam: Present: normal bowel sounds, soft, no peritoneal signs. Absent: distended, tenderness - Extremities Exam Extremities exam: Present: warm, radial pulses palpable and symmetrical. Absent : calf tenderness, cyanotic, pedal edema - Back Exam Back exam: Present: paraspinal tenderness - Neurological Exam Neurological exam: Present: CN II-XII intact, oriented X3, no focal deficits. Absent: facial droop, speech deficit Internal Medicine: Result - Labs CBC & Chem 7: 12/05/17 08:05 12/05/17 08:05 Labs: Short CBC 12/05/17 Range/Units 08:05 WBC 20.7 H (4.3-11.1) K/mcL Hgb 9.6 L (12.9-16.9) g/dL Hct 29.8 L (37.5-50.1) % Plt Count 163 (140-400) K/mcL Neutrophils # 17.7 H (1.6-8.9) K/mcL BMP 12/05/17 08:05 Sodium 134 L Potassium 4.1 Chloride 103 Carbon Dioxide 25 BUN 37 H Creatinine 1.30 Glucose 109 H Calcium 8.2 L Urine 12/05/17 Range/Units 04:45 Urine Color Yellow (Yellow) Urine Clarity Clear (Clear) Urine pH 5.5 (5.0-8.0) pH Units Ur Specific [place] 1.024 (1.010-1.025) Urine Protein Trace (Neg-Trace) mg/dL Urine Glucose (UA) Normal (Normal) mg/dL - ABG Interpretation ABG results: PT/INR, D-dimer PT 20.7 Seconds (9.4-12.1) H 12/04/17 19:13 Consult Discharge Plan - Plan Referrals: Patt Shin, FOOD ANALYST [Primary Care Provider] -
[2017-12-05] MEDS: Acetaminophen 325 MG TABLET PO PRN (15:29)
[2017-12-05] MEDS ORDERED: Insulin DETEMIR 100 UNIT/ML X5UNITS SQ SCH (21:00)
[2017-12-05] MEDS: Melatonin 3 MG TABLET PO SCH (21:45)
[2017-12-05] MEDS: Levofloxacin 500 MG/100 ML 500 MG/100 ML BAG IVPB SCH (21:46)
[2017-12-06] MEDS: *HR* HYDROcodone/Acet 5/325 mg TABLET PO PRN ×3 (01:32→23:19)
[2017-12-06] MEDS: *HR* Heparin 5,000 UNIT/ML VIAL SQ SCH ×3 (06:26→21:31)
[2017-12-06 06:55] LABS: Basophils % 0.2 %; Eosinophils % 0.3 %; Hematocrit 27.8 % (37.5-50.1); Hemoglobin 8.7 g/dL (12.9-16.9); Immature Granulocytes % 0.5 % (0-4); Lymphocytes # 1.1 K/mcL (0.6-4.6); Lymphocytes % 9.5 %; Mean Corpuscular HGB Conc 31.3 g/dL (31.6-35.5); Mean Corpuscular Hemoglobin 28.2 pg (28.0-33.3); Mean Corpuscular Volume 90.3 fL (83.0-100.0); Mean Platelet Volume 10.8 fL (9.4-12.4); Monocytes % 8.9 %; Platelet Count 136 K/mcL (140-400); Red Blood Count 3.08 M/mcL (4.19-5.50); Segmented Neutrophils % 80.6 %
[2017-12-06 07:12] LABS: BUN/Creatinine Ratio 31 (6-26); Blood Urea Nitrogen 40 mg/dL (8-23); Calcium 8.1 mg/dL (8.6-10.3); Carbon Dioxide 26 mEq/L (23-29); Chloride 104 mEq/L (98-107); Glucose 217 mg/dL (70-105); Osmolality,Calculated 294 (280-300); Potassium 4.2 mEq/L (3.5-5.1); Sodium 134 mEq/L (136-145); eGFR For African Americans > 60 (> 60); eGFR For Non-African Americans 53 (> 60)
[2017-12-06] MEDS: Budesonide/Formoterol 160/4.5 MDI IH SCH ×2 (08:01→21:00)
[2017-12-06] MEDS: Insulin LISPRO 300 UNITS/3 ML VIAL SQ SCH ×4 (09:03→21:34)
[2017-12-06] MEDS: Acetaminophen 325 MG TABLET PO PRN ×2 (09:04→16:21)
[2017-12-06] MEDS: Metoprolol XL (24 HR) Succ 25 MG TAB.ER.24H PO SCH (09:04)
[2017-12-06] MEDS: Gabapentin 400 MG CAPSULE PO SCH ×3 (09:04→21:31)
[2017-12-06] MEDS: Loratadine 10 MG TABLET PO SCH (09:04)
[2017-12-06] MEDS: Finasteride 5 MG TABLET PO SCH (09:04)
[2017-12-06] MEDS: Ranolazine 500 MG TAB.ER.12H PO SCH ×2 (09:04→21:31)
[2017-12-06] MEDS: *HR* Amiodarone 200 MG TABLET PO SCH (09:04)
[2017-12-06] MEDS: Calcium 500-Vit D3 PO SCH ×2 (09:04→21:31)
[2017-12-06 09:05] LABS: Estimated Average Glucose 146 mg/dl; Hemoglobin A1C 6.7 %
--- NOTE | 2017-12-06 14:18 | Internal Med Progress Note ---
Date of Encounter: 12/06/17 Time of Encounter: 14:16 - Assessment and plan (1) Lumbar transverse process fracture Current Visit: Yes Status: Acute Assessment and plan: Continue supportive care. Awaiting evaluation by spine surgery. Patient does not want any surgery at this time. Pain control. Qualifiers: Encounter type: initial encounter Fracture type: closed Qualified Code(s) : S32.009A - Unspecified fracture of unspecified lumbar vertebra, initial encounter for closed fracture (2) Diabetes mellitus Current Visit: Yes Status: Chronic Assessment and plan: Blood sugars are in the 200s this morning. Will increase long-acting insulin coverage. Continue diabetic diet. 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 Robitussin for cough. O2 supplementation as needed. Qualifiers: COPD type: unspecified COPD Qualified Code(s): J44.9 - Chronic obstructive pulmonary disease, unspecified (4) Ischemic cardiomyopathy Current Visit: Yes Status: Chronic (5) Leukocytosis Current Visit: Yes Status: Acute Assessment and plan: Improving. Chest x-ray done initially did show right basal airspace opacities consistent with atelectasis versus pneumonia with possible small pleural effusion. Continue Levaquin. Qualifiers: Leukocytosis type: leukemoid reaction Qualified Code(s): D72.823 - Leukemoid reaction (6) Fall Current Visit: Yes Status: Acute Assessment and plan: Awaiting physical therapy evaluation. Qualifiers: Encounter type: initial encounter Qualified Code(s): W19.XXXA - Unspecified fall, initial encounter (7) Afib Current Visit: Yes Status: Chronic Assessment and plan: Rate controlled. Anticoagulation held for possible surgery. Qualifiers: Atrial fibrillation type: chronic Qualified Code(s): I48.2 - Chronic atrial fibrillation (8) ARIEL (acute kidney injury) Current Visit: Yes Status: Resolved (9) DVT prophylaxis Current Visit: Yes Status: Acute Assessment and plan: With SCDs and subcutaneous heparin - Time Spent With Patient Total time spent is greater than 50% in coordination of care (as documented) at patient's floor/unit and/or counseling patient: - Subjective Interval history: Patient continues to have back pain. It is well controlled with current pain medication regimen. Denies any fever or chills. No shortness of breath. Awaiting evaluation by spine surgery. Does have cough. - Constitutional Vitals: Temp Pulse Resp BP Pulse Ox 98.1 F 74 16 125/68 90 12/06/17 11:24 12/06/17 11:24 12/06/17 11:24 12/06/17 11:24 12/06/17 11:24 General appearance: Present: cooperative, disheveled, A&O X 3, answers questions appropriately - Neck Neck exam general surgery: Present: supple, trachea midline. Absent: lymphadenopathy - Respiratory Respiratory exam: Present: CTAB. Absent: accessory muscle use, rales, rhonchi, wheezes - Cardiovascular Cardiovascular exam: Present: RRR, +S1, +S2. Absent: diastolic murmur, gallop, rubs, systolic murmur - GI/Abdominal GI/Abdominal exam: Present: normal bowel sounds, soft, no peritoneal signs. Absent: distended, tenderness - Extremities Exam Extremities exam: Present: warm, radial pulses palpable and symmetrical. Absent : calf tenderness, cyanotic, pedal edema - Back Exam Back exam: Present: paraspinal tenderness - Neurological Exam Neurological exam: Present: oriented X3, no focal deficits. Absent: facial droop, speech deficit - Skin Skin exam: Present: dry, intact Internal Medicine: Result - Labs CBC & Chem 7: 12/06/17 06:25 12/06/17 06:25 Labs: Short CBC 12/06/17 Range/Units 06:25 WBC 11.2 H (4.3-11.1) K/mcL Hgb 8.7 L (12.9-16.9) g/dL Hct 27.8 L (37.5-50.1) % Plt Count 136 L (140-400) K/mcL Neutrophils # 9.0 H (1.6-8.9) K/mcL BMP 12/06/17 06:25 Sodium 134 L Potassium 4.2 Chloride 104 Carbon Dioxide 26 BUN 40 H Creatinine 1.31 H Glucose 217 H Calcium 8.1 L - ABG Interpretation ABG results: PT/INR, D-dimer PT 20.7 Seconds (9.4-12.1) H 12/04/17 19:13 - Impressions Impressions Echocardiogram 12/05/17 20:25 Impressions: LVEF 35%. Mildly dilated left ventricle. segmental left ventricular systolic dysfunction. Mild left ventricular diastolic dysfunction. Normal right ventricular structure and function. Moderate pulmonary hypertension. The pericardium appears normal. A device lead was visualized in the right atrium and right ventricle. Left Ventricular Wall Motion: Rest Echo Findings The apex, apical inferior, apical septal and mid anterior septal morales were hypokinetic. All other wall segments showed normal motion. Findings: Study Quality * Technically sub-optimal due to body habitus. ECG Findings * Normal sinus rhythm. Left Ventricle * LVEF 35%. * Mildly dilated left ventricle. * segmental left ventricular systolic dysfunction. * Mild left ventricular diastolic dysfunction. Right Ventricle * Normal right ventricular structure and function. Left Atrium * Moderately dilated left atrium. Right Atrium * Normal right atrial size. Interatrial Septum * No evidence of PFO by color Doppler. Aortic Valve * Aortic valve not well visualized. * No aortic regurgitation. * No aortic stenosis. Mitral Valve * Mitral valve not well visualized. * No mitral regurgitation. * No mitral stenosis. Tricuspid Valve * Moderate tricuspid regurgitation. * Estimated RVSP is 36 mmHg. * Estimated RA pressure is 10 mmHg. * Moderate pulmonary hypertension. Pulmonic Valve * Pulmonic valve not well visualized. Aorta * Normally sized aortic root. Pericardium * The pericardium appears normal. IVC * The IVC is not dilated. * < 50% respiratory change. Device lead * A device lead was visualized in the right atrium and right ventricle. Consult Discharge Plan - Plan Referrals: Patt Shin, LABEL REWINDER [Primary Care Provider] -
[2017-12-06] MEDS ORDERED: Ipratropium/Albuterol Neb 3 ML IH PRN (14:22)
[2017-12-06] MEDS ORDERED: Insulin DETEMIR 100 UNIT/ML X5UNITS SQ SCH (14:26)
[2017-12-06] MEDS: Melatonin 3 MG TABLET PO SCH (21:31)
[2017-12-06] MEDS: Levofloxacin 500 MG/100 ML 500 MG/100 ML BAG IVPB SCH (21:34)
[2017-12-07 01:20] LABS: BUN/Creatinine Ratio 35 (6-26); Blood Urea Nitrogen 39 mg/dL (8-23); Calcium 8.5 mg/dL (8.6-10.3); Carbon Dioxide 27 mEq/L (23-29); Chloride 104 mEq/L (98-107); Glucose 141 mg/dL (70-105); Osmolality,Calculated 296 (280-300); Potassium 4.2 mEq/L (3.5-5.1); Sodium 137 mEq/L (136-145); eGFR For African Americans > 60 (> 60); eGFR For Non-African Americans > 60 (> 60)
[2017-12-07 03:44] LABS: Basophils % 0.1 %; Eosinophils % 0.2 %; Hematocrit 28.4 % (37.5-50.1); Hemoglobin 8.8 g/dL (12.9-16.9); Immature Granulocytes % 0.8 % (0-4); Lymphocytes % 9.5 %; Mean Corpuscular Hemoglobin 28.9 pg (28.0-33.3); Mean Corpuscular Volume 93.1 fL (83.0-100.0); Mean Platelet Volume 11.3 fL (9.4-12.4); Monocytes % 9.8 %; Neutrophils # 8.3 K/mcL (1.6-8.9); Platelet Count 150 K/mcL (140-400); Red Blood Count 3.05 M/mcL (4.19-5.50); Red Cell Distribution Width 17.1 % (11.5-14.5); Segmented Neutrophils % 79.6 %
[2017-12-07] MEDS: *HR* HYDROcodone/Acet 5/325 mg TABLET PO PRN ×2 (05:42→17:09)
[2017-12-07] MEDS: *HR* Heparin 5,000 UNIT/ML VIAL SQ SCH ×2 (05:42→14:49)
[2017-12-07] MEDS: Budesonide/Formoterol 160/4.5 MDI IH SCH (07:45)
--- NOTE | 2017-12-07 08:17 | Spinal Consult Note ---
Date of Encounter: 12/07/17 Time of Encounter: 08:14 Assessment and Plan (1) Lumbar transverse process fracture Current Visit: Yes Status: Acute On exam he is sitting in a chair reasonably comfortable in mild distress. Afebrile vital signs stable. He appears somewhat cachectic. Head normocephalic atraumatic extraocular muscles intact. No JVD. Neck supple. No thyromegaly. He is neurovascularly intact with regard to his bilateral upper and lower extremities. He has tenderness to palpation in the paraspinal muscles on the left in the thoracic or lumbar region. He has no clonus. His hips move symmetrically. His clubbing cyanosis or edema. CT examination of the lumbar spine reveals severe multilevel degenerative changes. This includes loss of disc space height, diffuse osteophytes, and vacuum phenomena. He has a left sided transverse process fracture at L1. Impression: 1) transverse process fracture L1 vertebra 2) severe lumbar spondylosis Plan: I had a long discussion with the patient regarding treatment options. In this type of fracture does not need surgical intervention. We are going to proceed with TLSO brace which has been ordered for today. He is clinically continue analgesics. He can follow-up in 2 months for repeat radiographic studies to assess fracture healing. He can mobilize as tolerated without restrictions. Qualifiers: Encounter type: initial encounter Fracture type: closed Qualified Code(s) : S32.009A - Unspecified fracture of unspecified lumbar vertebra, initial encounter for closed fracture (2) Lumbar spondylosis Current Visit: Yes Status: Chronic History of Present Illness Chief complaint: Back pain HPI: Mr. Mistry is a 82 year old male Who experienced significant back pain after a fall. He was evaluated in the emergency department where transverse process fracture was found on CT examination and the patient was admitted for treatment and definitive management secondary to intractable pain. He denies any bowel bladder symptomatology, weakness, radicular symptoms, fevers or chills. He has had back difficulties since his late 20s but this episode has worsened his symptoms. Past Med Surg Social Fam HX - Past Medical History Medical history: atrial fibrillation, COPD, coronary artery disease, DVT, diabetes, GERD, hyperlipidemia, hypertension, myocardial infarction Psychiatric history: depression - Past Surgical History Surgical History: angioplasty/stent, pacemaker/AICD - Social History Smoking Status: Current every day smoker Packs per day: 0.5 Smokeless Tobacco Status: No Alcohol use: none Drug use: none - Family History Father Family Member Ethnicity: Non- Hx Family Cardiac Disorders: Yes Hx Family Respiratory Disorders: Yes Hx Family Cancer: No Hx Family GI Disorders: No Hx Family Endocrine Disorder: Yes Hx Family Neuromuscular Disorders: No Hx Family Neurologic Disorders: No Hx Family HEENT Disorders: No Hx Family Autoimmune Disorders: No Medications and Allergies Calcium Carbonate/Vitamin D3 [Calcium 500-Vit D3 400 Tablet] 1 tab PO BID [History] Ferrous Sulfate [Iron] 325 mg PO BID 09/19/15 [History] Linagliptin [Tradjenta] 5 mg PO DAILY 09/19/15 [History] Melatonin [Melatin] 3 mg PO HS 09/19/15 [History] Omeprazole [PriLOSEC] 20 mg PO DAILY 09/19/15 [History] Rivaroxaban [Xarelto] 20 mg PO DAILY 09/19/15 [History] Sertraline [Zoloft] 100 mg PO DAILY 09/19/15 [History] traMADol [Ultram] 50 mg PO TID PRN 09/19/15 [History] Finasteride [Proscar] 5 mg PO DAILY #30 tablet 11/05/15 [Rx] Atorvastatin [Lipitor] 40 mg PO HS 05/17/16 [History] Donepezil [Aricept] 10 mg PO HS 05/17/16 [History] Insulin ASPART [Novolog] 0 unit SQ TIDWM 05/17/16 [History] Ipratropium/Albuterol Neb [Duoneb] 3 ml IH Q6HR PRN 05/17/16 [History] Ondansetron HCl [Zofran] 4 mg PO BID PRN 05/17/16 [History] Oxygen 2 l NS HS 05/17/16 [History] Ranolazine [Ranexa] 500 mg PO BID 05/17/16 [History] Metoprolol XL (24 HR) Succ [Toprol Xl] 12.5 mg PO DAILY 10/05/16 [History] Amiodarone [Cordarone] 200 mg PO DAILY #30 tablet 11/11/16 [Rx] Furosemide [Lasix] 40 mg PO DAILY #30 tablet 11/11/16 [Rx] Lidocaine Patch [Lidoderm 5% patch] 1 each TP DAILY #30 adh..patch 11/11/16 [Rx] Potassium Chloride [Klor-Con Sprinkle] 10 meq PO BID #60 capsule.er 11/11/16 [Rx ] Fluticasone/Salmeterol [Advair Hfa 230-21 Mcg Inhaler] 2 puff IH BID 12/04/17 [ History] Gabapentin [Neurontin] 800 mg PO TID 12/04/17 [History] Insulin Degludec [Tresiba Flextouch U-100] 42 unit SQ HS 12/04/17 [History] Loratadine [Claritin] 10 mg PO DAILY 12/04/17 [History] Roflumilast [Daliresp] 500 mcg PO DAILY 12/04/17 [History] Umeclidinium [place] [Incruse Ellipta] 62.5 mcg IH DAILY 12/04/17 [History] 3 Allergy/AdvReac Type Severity Reaction Status Date / Time amitriptyline Allergy Unknown unknown Verified 12/04/17 17:05 Results - Labs Result Diagrams: 12/07/17 00:49 12/07/17 00:49 Labs: Abnormal lab results RBC 3.05 M/mcL (4.19-5.50) L 12/07/17 00:49 Hgb 8.8 g/dL (12.9-16.9) L 12/07/17 00:49 Hct 28.4 % (37.5-50.1) L 12/07/17 00:49 MCHC 31.0 g/dL (31.6-35.5) L 12/07/17 00:49 RDW 17.1 % (11.5-14.5) H 12/07/17 00:49 PT 20.7 Seconds (9.4-12.1) H 12/04/17 19:13 BUN 39 mg/dL (8-23) H 12/07/17 00:49 BUN/Creatinine Ratio 35 (6-26) H 12/07/17 00:49 Glucose 141 mg/dL (70-105) H 12/07/17 00:49 POC Glucose 208 mg/dL (70-99) H 12/06/17 19:58 Hemoglobin A1c 6.7 % (-5.6) H 12/05/17 01:05 Calcium 8.5 mg/dL (8.6-10.3) L 12/07/17 00:49 Globulin 3.7 g/dL (2.4-3.5) H 12/04/17 19:13 Ur Squamous Epith Cells Many per lpf (None-Few) H 12/05/17 04:45 H & H 12/07/17 Range/Units 00:49 Hgb 8.8 L (12.9-16.9) g/dL Hct 28.4 L (37.5-50.1) % All other labs normal. Consult Discharge Plan - Plan Referrals: Patt Shin, SHE[employer] ROCK HANGER [Primary Care Provider] -
[2017-12-07] MEDS: Finasteride 5 MG TABLET PO SCH (08:29)
[2017-12-07] MEDS: Metoprolol XL (24 HR) Succ 25 MG TAB.ER.24H PO SCH (08:29)
[2017-12-07] MEDS: Insulin LISPRO 300 UNITS/3 ML VIAL SQ SCH ×3 (08:29→17:03)
[2017-12-07] MEDS: *HR* Amiodarone 200 MG TABLET PO SCH (08:29)
[2017-12-07] MEDS: Gabapentin 400 MG CAPSULE PO SCH ×2 (08:29→14:49)
[2017-12-07] MEDS: Calcium 500-Vit D3 PO SCH (08:29)
[2017-12-07] MEDS: Ranolazine 500 MG TAB.ER.12H PO SCH (08:29)
[2017-12-07] MEDS: Loratadine 10 MG TABLET PO SCH (08:29)
--- NOTE | 2017-12-07 12:55 | Discharge Summary ---
- NOTES TO OUTPATIENT PROVIDER Notes to Outpatient Provider: Patient with L1 transverse process fracture. Nonsurgical. Being discharged to skilled rehabilitation in TLSO brace. Also treated for possible pneumonia. Will complete antibiotic course Orders not resulted at time of discharge: Pending orders 12/04/17 21:42 Culture,Sputum with Gram Stain [RM] Routine Date of Encounter: 12/07/17 Time of Encounter: 12:55 - Discharge Diagnosis (1) Lumbar transverse process fracture Priority: Primary Status: Acute Qualifiers: Encounter type: initial encounter Fracture type: closed Qualified Code(s) : S32.009A - Unspecified fracture of unspecified lumbar vertebra, initial encounter for closed fracture (2) Pneumonia Priority: Secondary Status: Acute Comments: No organism identified Qualifiers: Pneumonia type: due to unspecified organism Laterality: right Lung location: lower lobe of lung Qualified Code(s): J18.1 - Lobar pneumonia, unspecified organism (3) Diabetes mellitus Priority: Secondary Status: Chronic Qualifiers: Diabetes mellitus type: type 2 Diabetes mellitus 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 Diabetes mellitus complication status: with kidney complications Diabetes mellitus complication detail: with chronic kidney disease Chronic kidney disease stage: stage 3 (moderate) Qualified Code(s): E11.22 - Type 2 diabetes mellitus with diabetic chronic kidney disease; N18.3 - Chronic kidney disease, stage 3 (moderate); N18.3 - Chronic kidney disease, stage 3 (moderate); Z79.4 - terminal worker (current) use of insulin; Z79.4 - custodial (current) use of insulin; Z79.4 - terminal worker (current) use of insulin; Z79.4 - custodial (current) use of insulin (4) COPD (chronic obstructive pulmonary disease) Priority: Secondary Status: Chronic Qualifiers: COPD type: unspecified COPD Qualified Code(s): J44.9 - Chronic obstructive pulmonary disease, unspecified (5) Ischemic cardiomyopathy Priority: Secondary Status: Chronic (6) Leukocytosis Priority: Secondary Status: Acute Qualifiers: Leukocytosis type: leukemoid reaction Qualified Code(s): D72.823 - Leukemoid reaction (7) Fall Priority: Secondary Status: Acute Qualifiers: Encounter type: initial encounter Qualified Code(s): W19.XXXA - Unspecified fall, initial encounter (8) Afib Priority: Secondary Status: Chronic Qualifiers: Atrial fibrillation type: chronic Qualified Code(s): I48.2 - Chronic atrial fibrillation (9) ARIEL (acute kidney injury) Priority: Secondary Status: Resolved (10) DVT prophylaxis Priority: Secondary Status: Acute Hospital course: Mr. Mistry is a 82 year old male patient with a history of COPD,coronary artery disease, diabetes, DVT, hyperlipidemia who was hospitalized here after a fall resulting in L1 transverse process fracture. He was evaluated by spine surgery today and recommended conservative management with TLSO brace. Patient will follow up with spine surgery in 2 months. He was evaluated by physical therapy and recommended placement to skilled rehabilitation. Patient also presented with leukocytosis and chest x-ray did not show right lower lobe infiltrate. He was treated with Levaquin and leukocytosis has resolved.. He will be discharged on antibiotics to complete treatment course. He can resume taking Xarelto as he does not require surgical intervention. Patient also presented with acute kidney injury which has also now resolved. He can resume taking Lasix at his usual home dose. Discharge discussed with: patient, nurse - Time Spent with Patient Total time spent providing and/or coordinating discharge services: Greater than 30 minutes (40 min) - Discharge Medications Prescriptions: HYDROcodone/Acet 5/325 mg [[place] 5-325 mg] 2 tab PO Q6HR PRN 5 Days #20 tablet PRN Reason: Severe Pain Cefdinir [Omnicef] 300 mg PO BID #8 capsule Doxycycline Hyclate 100 mg PO BID #8 capsule Gabapentin [Neurontin] 800 mg PO TID #30 tablet Home Medications: Calcium Carbonate/Vitamin D3 [Calcium 500-Vit D3 400 Tablet] 1 tab PO BID [History] Ferrous Sulfate [Iron] 325 mg PO BID 09/19/15 [History] Linagliptin [Tradjenta] 5 mg PO DAILY 09/19/15 [History] Melatonin [Melatin] 3 mg PO HS 09/19/15 [History] Omeprazole [PriLOSEC] 20 mg PO DAILY 09/19/15 [History] Rivaroxaban [Xarelto] 20 mg PO DAILY 09/19/15 [History] Sertraline [Zoloft] 100 mg PO DAILY 09/19/15 [History] Finasteride [Proscar] 5 mg PO DAILY #30 tablet 11/05/15 [Rx] Atorvastatin [Lipitor] 40 mg PO HS 05/17/16 [History] Donepezil [Aricept] 10 mg PO HS 05/17/16 [History] Insulin ASPART [Novolog] 0 unit SQ TIDWM 05/17/16 [History] Ipratropium/Albuterol Neb [Duoneb] 3 ml IH Q6HR PRN 05/17/16 [History] Ondansetron HCl [Zofran] 4 mg PO BID PRN 05/17/16 [History] Oxygen 2 l NS HS 05/17/16 [History] Ranolazine [Ranexa] 500 mg PO BID 05/17/16 [History] Metoprolol XL (24 HR) Succ [Toprol Xl] 12.5 mg PO DAILY 10/05/16 [History] Amiodarone [Cordarone] 200 mg PO DAILY #30 tablet 11/11/16 [Rx] Furosemide [Lasix] 40 mg PO DAILY #30 tablet 11/11/16 [Rx] Lidocaine Patch [Lidoderm 5% patch] 1 each TP DAILY #30 adh..patch 11/11/16 [Rx] Potassium Chloride [Klor-Con Sprinkle] 10 meq PO BID #60 capsule.er 11/11/16 [Rx ] Fluticasone/Salmeterol [Advair Hfa 230-21 Mcg Inhaler] 2 puff IH BID 12/04/17 [ History] Insulin Degludec [Tresiba Flextouch U-100] 42 unit SQ HS 12/04/17 [History] Loratadine [Claritin] 10 mg PO DAILY 12/04/17 [History] Roflumilast [Daliresp] 500 mcg PO DAILY 12/04/17 [History] Umeclidinium [place] [Incruse Ellipta] 62.5 mcg IH DAILY 12/04/17 [History] Cefdinir [Omnicef] 300 mg PO BID #8 capsule 12/07/17 [Rx] Doxycycline Hyclate 100 mg PO BID #8 capsule 12/07/17 [Rx] Gabapentin [Neurontin] 800 mg PO TID #30 tablet 12/07/17 [Rx] GuaiFENesin/Dextromethorphan [Robitussin/Dm] 10 ml PO Q6HR PRN udc 12/07/17 [Rx ] HYDROcodone/Acet 5/325 mg [[place] 5-325 mg] 2 tab PO Q6HR PRN 5 Days #20 tablet 12/07/17 [Rx] Allergies/Adverse Reactions: 3 Allergy/AdvReac Type Severity Reaction Status Date / Time amitriptyline Allergy Unknown unknown Verified 12/04/17 17:05 Date of admission: 12/04/17 20:25 Primary care physician: Patt Shin CNP Consults: 12/07/17 10:49 Consult to Physical Therapy [CONS] Routine Comment: Evaluate, develop and implement POC Reason for Consult: Multiple falls Does patient have active BEDREST order?: No Is patient medically & hemodynamically stable?: Yes 12/07/17 10:50 Consult to Occupational Therapy [CONS] Routine Comment: Evaluate, develop and implement POC Reason for Consult: Multiple falls Does patient have active BEDREST order?: No Is patient medically & hemodynamically stable?: Yes Discharging clinician: Scott Royal Anticipated date of discharge: 12/07/17 - Constitutional Vitals: Temp Pulse Resp BP Pulse Ox 97.9 F 70 18 124/69 92 12/07/17 10:48 12/07/17 10:48 12/07/17 10:48 12/07/17 10:48 12/07/17 10:48 General appearance: Present: cooperative, disheveled, A&O X 3, answers questions appropriately - Neck Neck exam general surgery: Present: supple, trachea midline. Absent: lymphadenopathy - Respiratory Respiratory exam: Present: CTAB. Absent: accessory muscle use, rales, rhonchi, wheezes - Cardiovascular Cardiovascular exam: Present: RRR, +S1, +S2. Absent: diastolic murmur, gallop, rubs, systolic murmur - Extremities Exam Extremities exam: Present: warm, radial pulses palpable and symmetrical. Absent : calf tenderness, cyanotic, pedal edema - Neurological Exam Neurological exam: Present: CN II-XII intact, oriented X3, no focal deficits. Absent: facial droop, speech deficit - Skin Skin exam: Present: dry, intact - Patient Status Disposition: Home, Self-Care Condition: Good Functional capacity at discharge: uses cane/walker Overall status at discharge: patient is not back to baseline - Discharge Instructions Instructions: Pneumonia (DC) Follow Up With: Patt Shin CNP [Primary Care Provider] - (in 1 week) Fulton,Felix E Jr, MD [Partnered Physician] - (2 months) - Diet and Activity Activity: as per physical therapy Diet: diabetic diet, low fat, low cholesterol, low salt diet
--- NOTE | 2017-12-07 13:14 | Physician Discharge Referral ---
ExtendedCare Referral Info Provider in Charge after Transfer: PCP Institutional Level of Care: Skilled - Diagnosis (1) Lumbar transverse process fracture Priority: Primary Status: Acute (2) Pneumonia Priority: Secondary Status: Acute (3) Diabetes mellitus Priority: Secondary Status: Chronic (4) COPD (chronic obstructive pulmonary disease) Priority: Secondary Status: Chronic (5) Ischemic cardiomyopathy Priority: Secondary Status: Chronic (6) Leukocytosis Priority: Secondary Status: Acute (7) Fall Priority: Secondary Status: Acute (8) Afib Priority: Secondary Status: Chronic (9) ARIEL (acute kidney injury) Priority: Secondary Status: Resolved (10) DVT prophylaxis Priority: Secondary Status: Acute Prognosis: Fair Aware of Diagnosis: Patient, Family Aware of Prognosis: Patient, Family - Transfer Medications Prescriptions: HYDROcodone/Acet 5/325 mg [[place] 5-325 mg] 2 tab PO Q6HR PRN 5 Days #20 tablet PRN Reason: Severe Pain Cefdinir [Omnicef] 300 mg PO BID #8 capsule Doxycycline Hyclate 100 mg PO BID #8 capsule Gabapentin [Neurontin] 800 mg PO TID #30 tablet Home Medications: Calcium Carbonate/Vitamin D3 [Calcium 500-Vit D3 400 Tablet] 1 tab PO BID [History] Ferrous Sulfate [Iron] 325 mg PO BID 09/19/15 [History] Linagliptin [Tradjenta] 5 mg PO DAILY 09/19/15 [History] Melatonin [Melatin] 3 mg PO HS 09/19/15 [History] Omeprazole [PriLOSEC] 20 mg PO DAILY 09/19/15 [History] Rivaroxaban [Xarelto] 20 mg PO DAILY 09/19/15 [History] Sertraline [Zoloft] 100 mg PO DAILY 09/19/15 [History] Finasteride [Proscar] 5 mg PO DAILY #30 tablet 11/05/15 [Rx] Atorvastatin [Lipitor] 40 mg PO HS 05/17/16 [History] Donepezil [Aricept] 10 mg PO HS 05/17/16 [History] Insulin ASPART [Novolog] 0 unit SQ TIDWM 05/17/16 [History] Ipratropium/Albuterol Neb [Duoneb] 3 ml IH Q6HR PRN 05/17/16 [History] Ondansetron HCl [Zofran] 4 mg PO BID PRN 05/17/16 [History] Oxygen 2 l NS HS 05/17/16 [History] Ranolazine [Ranexa] 500 mg PO BID 05/17/16 [History] Metoprolol XL (24 HR) Succ [Toprol Xl] 12.5 mg PO DAILY 10/05/16 [History] Amiodarone [Cordarone] 200 mg PO DAILY #30 tablet 11/11/16 [Rx] Furosemide [Lasix] 40 mg PO DAILY #30 tablet 11/11/16 [Rx] Lidocaine Patch [Lidoderm 5% patch] 1 each TP DAILY #30 adh..patch 11/11/16 [Rx] Potassium Chloride [Klor-Con Sprinkle] 10 meq PO BID #60 capsule.er 11/11/16 [Rx ] Fluticasone/Salmeterol [Advair Hfa 230-21 Mcg Inhaler] 2 puff IH BID 12/04/17 [ History] Insulin Degludec [Tresiba Flextouch U-100] 42 unit SQ HS 12/04/17 [History] Loratadine [Claritin] 10 mg PO DAILY 12/04/17 [History] Roflumilast [Daliresp] 500 mcg PO DAILY 12/04/17 [History] Umeclidinium [place] [Incruse Ellipta] 62.5 mcg IH DAILY 12/04/17 [History] Cefdinir [Omnicef] 300 mg PO BID #8 capsule 12/07/17 [Rx] Doxycycline Hyclate 100 mg PO BID #8 capsule 12/07/17 [Rx] Gabapentin [Neurontin] 800 mg PO TID #30 tablet 12/07/17 [Rx] GuaiFENesin/Dextromethorphan [Robitussin/Dm] 10 ml PO Q6HR PRN udc 12/07/17 [Rx ] HYDROcodone/Acet 5/325 mg [[place] 5-325 mg] 2 tab PO Q6HR PRN 5 Days #20 tablet 12/07/17 [Rx] Allergies/Adverse Reactions: 3 Allergy/AdvReac Type Severity Reaction Status Date / Time amitriptyline Allergy Unknown unknown Verified 12/04/17 17:05 - Respiratory Orders Smoking Cessation: Smoking cessation has been advised. For more information, call the [place] Tobacco Quit Line at 2-029-AVFN-NOW. - Ancillary Orders May consult with Dentist, Wage Hand, Personal Care Worker PRN - Advance Directives Code Status: Full Code - Mobility Orders Other (per PT) - Rehabiliation Orders Rehab Potential: Fair Rehab Orders: Evaluation for Physical Therapy, Evaluation for Occupational Therapy - Diet Orders No Concentrated Sweets (diabetic), Cardiac CERTIFICATION: I certify that the transfer of the above named patient to an Extended Care Facility is necessary for the continuing treatment of the diagnosis listed. The above information is true and accurate reflection of patient's current condition. Confidential - Redisclosure prohibited without a patient's written consent.
[2017-12-07] MEDS ORDERED: predniSONE 20 MG TABLET PO SCH (13:45)
[2017-12-07 14:30] VITALS: BP 107/65
--- NOTE | 2017-12-09 00:50 | Electrocardiograph Report ---
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
== END 2017-12-07 19:07 | disposition home or self-care (01) | DRG 551 ==
LOC: EMEROO 17:03 → 3NENU 17:03 → SUATTDRO 20:25 → OBSVTOIN 22:21 → 3NENU 22:44
PROVIDERS: ADMIT Internal Medicine; ATTEND Internal Medicine

== ENCOUNTER 2018-07-14 12:13 | Observation (INO) ==
[2018-07-14] MEDS ORDERED: Ipratropium/Albuterol Neb 3 ML IH ONE (12:17)
[2018-07-14] MEDS ORDERED: predniSONE 20 MG TABLET PO ONE (12:17)
--- NOTE | 2018-07-14 12:21 | Emergency Department Note ---
Disposition Clinical Impression: Acute exacerbation of chronic obstructive airways disease Disposition: Home, Self-Care Condition: Good Time of Disposition: 14:59 General Adult HPI - General Stated complaint: Respiratory distress Time Seen by Provider: 07/14/18 12:17 Source: patient, EMS Mode of arrival: EMS Limitations: no limitations Nursing Notes Reviewed: Yes Vital Signs Reviewed: Yes - History of Present Illness HPI Narrative: 82-year-old male presents emergency Department with sudden onset shortness of breath starting this morning. at home has pneumonia. Patient reporting cough, sputum production. He denies any chest pain, nausea, vomiting, abdominal pain, worsening swelling. Patient does have a pacemaker. - Related Data Home Medications Medication Instructions Recorded Confirmed Calcium Carbonate/Vitamin D3 1 tab PO BID 09/19/15 12/04/17 [Calcium 500-Vit D3 400 Tablet] Ferrous Sulfate [Iron] 325 mg PO BID 09/19/15 12/04/17 Linagliptin [Tradjenta] 5 mg PO DAILY 09/19/15 07/14/18 Melatonin [Melatin] 3 mg PO HS 09/19/15 12/04/17 Omeprazole [PriLOSEC] 20 mg PO DAILY 09/19/15 07/14/18 Rivaroxaban [Xarelto] 20 mg PO DAILY 09/19/15 07/14/18 Sertraline [Zoloft] 100 mg PO DAILY 09/19/15 07/14/18 Atorvastatin [Lipitor] 40 mg PO HS 05/17/16 07/14/18 Insulin ASPART [Novolog] 0 unit SQ TIDWM 05/17/16 12/04/17 Ipratropium/Albuterol Neb [Duoneb] 3 ml IH Q6HR PRN 05/17/16 12/04/17 Ondansetron HCl [Zofran] 4 mg PO BID PRN 05/17/16 07/14/18 Oxygen 2 l NS HS 05/17/16 12/04/17 Ranolazine [Ranexa] 500 mg PO BID 05/17/16 07/14/18 Metoprolol XL (24 HR) Succ [Toprol 12.5 mg PO DAILY 10/05/16 12/04/17 Xl] Fluticasone/Salmeterol [Advair Hfa 2 puff IH BID 12/04/17 12/04/17 230-21 Mcg Inhaler] Insulin Degludec [Tresiba 42 unit SQ HS 12/04/17 12/04/17 Flextouch U-100] Loratadine [Claritin] 10 mg PO DAILY 12/04/17 12/04/17 Roflumilast [Daliresp] 500 mcg PO DAILY 12/04/17 07/14/18 Donepezil [Aricept] 10 mg PO HS 07/14/18 07/14/18 Potassium Chloride [Klor-Con 10] 10 meq PO BID 07/14/18 07/14/18 Tramadol HCl [Ultram] 100 mg PO TID PRN 07/14/18 07/14/18 Previous Rx's Medication Instructions Recorded Finasteride [Proscar] 5 mg PO DAILY #30 tablet 11/05/15 Amiodarone [Cordarone] 200 mg PO DAILY #30 tablet 11/11/16 Furosemide [Lasix] 40 mg PO DAILY #30 tablet 11/11/16 Lidocaine Patch [Lidoderm 5% patch] 1 each TP DAILY #30 adh..patch 11/11/16 Gabapentin [Neurontin] 800 mg PO TID #30 tablet 12/07/17 GuaiFENesin/Dextromethorphan 10 ml PO Q6HR PRN udc 12/07/17 [Robitussin/Dm] Allergies Allergy/AdvReac Type Severity Reaction Status Date / Time amitriptyline Allergy Unknown unknown Verified 12/04/17 17:05 All systems ED: reviewed and negative except as stated. Review of Systems: As Per HPI Constitutional: Denies: fever Cardiovascular: Denies: chest pain Respiratory: Reports: cough, dyspnea, wheezes Gastrointestinal: Denies: abdominal pain, nausea, vomiting Genitourinary: Denies: urgency, dysuria, frequency Past Medical History - Past Medical History Medical history: Reports: atrial fibrillation, COPD, coronary artery disease, DVT, diabetes, GERD, hyperlipidemia, hypertension, myocardial infarction Surgical history: Reports: angioplasty/stent, pacemaker/AICD Psychiatric history: Reports: depression - Social History Smoking Status: Current every day smoker Smokeless Tobacco Status: No Alcohol use: Reports: none Drug use: Reports: none Physical Exam - General Limitations: no limitations General appearance: alert, in no apparent distress - Head Head exam: normocephalic - Eye Eye exam: Present: EOMI - ENT ENT exam: mucous membranes moist - Neck Neck exam: Present: trachea midline - Chest Chest inspection: Present: symmetric chest wall rise - Respiratory Respiratory exam: Present: wheezes (diffuse) - Abdominal Exam Abdominal exam: Present: soft, Non-Tender. Absent: distention, guarding, rebound, rigidity - Extremities Exam Extremities exam: Present: normal capillary refill - Neurological Exam Neurological exam: Present: alert, oriented X3 - Psychiatric Psychiatric exam: Present: normal affect, normal mood - Skin Skin exam: Present: warm, dry, intact, normal color. Absent: rash Course Vital Signs Temperature 97.7 F 07/14/18 12:17 Pulse Rate 81 07/14/18 12:17 Respiratory Rate 16 07/14/18 12:17 Blood Pressure 126/68 07/14/18 12:17 O2 Sat by Pulse Oximetry 98 07/14/18 12:17 Temperature 97.7 F 07/14/18 12:17 Pulse Rate 79 07/14/18 14:01 Respiratory Rate 18 07/14/18 14:01 Blood Pressure 96/60 07/14/18 14:01 O2 Sat by Pulse Oximetry 97 07/14/18 14:01 Oxygen Delivery Oxygen Delivery Nasal Cannula Medical Decision Making - MDM Narrative Medical decision making narrative: 82-year-old male presents emergency department with concern for shortness of breath, wheezes, sputum production. Patient hemodynamically stable on physical exam. Requiring his normal oxygen days on her home. EKG revealed an atrial sensed ventricular paced rhythm. Troponin was 0.07. This is within the patient's normal range for elevated troponin. He has reported no chest pain. Chest x-ray revealed concern for bronchial wall thickening withn for dominance with concern for possibility of aspiration related inflammation. Patient does have a leukocytosis of 14,000 with sputum production. We will provide Levaquin as well. Patient was noted by EMS to be in a very dirty environment at home. Patient is 82 years old. He is at significant risk for further deterioration if we discharge him home. Patient will be admitted. Dr. Negron agreed to accept the patient for admission. Chest X-Ray 07/14/18 12:17 IMPRESSION: Emphysema with COPD. Bronchial wall thickening could reflect smoking-related inflammation and/or bronchitis, however given slight basilar predominance, aspiration related inflammation is an additional consideration. No consolidative airspace disease. D/ / Nando Wiggins / Nando Wiggins Interpreting Provider: Nando Wiggins - Lab Data Result diagrams: 07/14/18 12:27 07/14/18 12:27 Lab Results 07/14/18 07/14/18 07/14/18 Range/Units 12:27 12:27 12:27 WBC 14.2 H (4.3-11.1) K/mcL RBC 4.21 (4.19-5.50) M/mcL Hgb 11.9 L (12.9-16.9) g/dL Hct 37.7 (37.5-50.1) % MCV 89.5 (83.0-100.0) fL MCH 28.3 (28.0-33.3) pg MCHC 31.6 (31.6-35.5) g/dL RDW 15.2 H (11.5-14.5) % Plt Count 175 (140-400) K/mcL MPV 10.9 (9.4-12.4) fL Immature Gran % 0.5 (0-4) % Seg Neutrophils % 84.0 % Lymphocytes % 7.8 % Monocytes % 7.3 % Eosinophils % 0.3 % Basophils % 0.1 % Neutrophils # 11.9 H (1.6-8.9) K/mcL Lymphocytes # 1.1 (0.6-4.6) K/mcL Monocytes # 1.0 (0.0-1.3) K/mcL Eosinophils # 0.0 (0.0-0.6) K/mcL Basophils # 0.0 (0.0-0.2) K/mcL Sodium 137 (136-145) mEq/L Potassium 4.4 (3.5-5.1) mEq/L Chloride 98 (98-107) mEq/L Carbon Dioxide 28 (23-29) mEq/L BUN 26 H (8-23) mg/dL Creatinine 1.27 (0.70-1.30) mg/dL Est GFR ( Amer) > 60 (> 60) Est GFR (Non-Af Amer) 55 L (> 60) BUN/Creatinine Ratio 20 (6-26) Glucose 154 H (70-105) mg/dL Calculated Osmolality 292 (280-300) Lactic Acid 0.8 (0.5-2.2) mmol/L Calcium 9.1 (8.6-10.3) mg/dL Troponin I 0.07 H* (< 0.04) ng/mL B-Natriuretic Peptide (Less than 100) pg/mL 07/14/18 Range/Units 12:27 WBC (4.3-11.1) K/mcL RBC (4.19-5.50) M/mcL Hgb (12.9-16.9) g/dL Hct (37.5-50.1) % MCV (83.0-100.0) fL MCH (28.0-33.3) pg MCHC (31.6-35.5) g/dL RDW (11.5-14.5) % Plt Count (140-400) K/mcL MPV (9.4-12.4) fL Immature Gran % (0-4) % Seg Neutrophils % % Lymphocytes % % Monocytes % % Eosinophils % % Basophils % % Neutrophils # (1.6-8.9) K/mcL Lymphocytes # (0.6-4.6) K/mcL Monocytes # (0.0-1.3) K/mcL Eosinophils # (0.0-0.6) K/mcL Basophils # (0.0-0.2) K/mcL Sodium (136-145) mEq/L Potassium (3.5-5.1) mEq/L Chloride (98-107) mEq/L Carbon Dioxide (23-29) mEq/L BUN (8-23) mg/dL Creatinine (0.70-1.30) mg/dL Est GFR ( Amer) (> 60) Est GFR (Non-Af Amer) (> 60) BUN/Creatinine Ratio (6-26) Glucose (70-105) mg/dL Calculated Osmolality (280-300) Lactic Acid (0.5-2.2) mmol/L Calcium (8.6-10.3) mg/dL Troponin I (< 0.04) ng/mL B-Natriuretic Peptide 82 (Less than 100) pg/mL - Radiology Data Radiology results reviewed: Yes I reviewed the patient's radiology results. - EKG Data EKG #1 EKG attestation: Yes I reviewed and interpreted this EKG. EKG results narrative: 12:23 Heart rate 80 bpm, OK interval 193 ms, QRS duration 158 ms, QT 450 ms, atrial sensed ventricular paced rhythm. Attestation Statement - Attestation Attestation: I examined this patient and my medical decision-making was reviewed with the Resident Physician, Dr. Edwards. I agree with the documented findings, disposition and treatment plan as described except to the extent set forth below. Patient is an 82-year-old white male with history of COPD and CHF who presents to emergency permit today by EMS with gradually worsening shortness of breath for the past 7 days. Patient states symptoms worsened over the last 24 hours, he is oxygen dependent on 3 L nasal cannula at all times and states he has been turning up his oxygen and just feels like he cannot get enough air. Patient denies any fevers or chills, does complain of occasional productive cough with whitish sputum. States he does not feel fluid overloaded his legs are not swollen he has not gained weight does not feel like CHF to him clinically. Patient has been exposed to pneumonia in the household but he has not been ill or hospitalized in the past year. Patient states never required intubation or mechanical ventilation for respiratory support. Patient denies any form of chest pain pressure or heaviness, no diaphoresis, no epigastric pain or lower abdominal pain no flank discomfort no lightheadedness or syncope. I agree with patient's physical exam findings as documented. EMS reported respiratory distress with hypoxia on their arrival patient had a breathing treatment in route and on arrival here on his home 3 L nasal cannula patient's sats 98 200% with coarse breathing and expiratory wheezing on auscultation. He should with mild conversational dyspnea during history. EKG shows a paced rhythm without acute ischemia. Patient had full lab evaluation as well as chest imaging. Patient's chest x-ray does not show any consolidation or ammonia although bronchial inflammation is noted with COPD changes. Patient received steroids and breathing treatments and his rest Tory status is stable on nasal cannula oxygen at this time. Patient's lab evaluation is overall unremarkable with the exception of an elevated troponin which she has chronically with compared to his hospital labs. Patient has remained chest pain-free throughout his evaluation. Patient was covered with Levaquin and will be admitted for COPD exacerbation with hypoxia.
[2018-07-14 12:50] LABS: Basophils % 0.1 %; Eosinophils % 0.3 %; Hematocrit 37.7 % (37.5-50.1); Hemoglobin 11.9 g/dL (12.9-16.9); Immature Granulocytes % 0.5 % (0-4); Lymphocytes # 1.1 K/mcL (0.6-4.6); Lymphocytes % 7.8 %; Mean Corpuscular HGB Conc 31.6 g/dL (31.6-35.5); Mean Corpuscular Hemoglobin 28.3 pg (28.0-33.3); Mean Corpuscular Volume 89.5 fL (83.0-100.0); Mean Platelet Volume 10.9 fL (9.4-12.4); Monocytes % 7.3 %; Neutrophils # 11.9 K/mcL (1.6-8.9); Platelet Count 175 K/mcL (140-400); Red Blood Count 4.21 M/mcL (4.19-5.50); Red Cell Distribution Width 15.2 % (11.5-14.5)
[2018-07-14 13:18] LABS: BUN/Creatinine Ratio 20 (6-26); Blood Urea Nitrogen 26 mg/dL (8-23); Calcium 9.1 mg/dL (8.6-10.3); Carbon Dioxide 28 mEq/L (23-29); Chloride 98 mEq/L (98-107); Glucose 154 mg/dL (70-105); Osmolality,Calculated 292 (280-300); Potassium 4.4 mEq/L (3.5-5.1); Sodium 137 mEq/L (136-145); eGFR For Non-African Americans 55 (> 60)
[2018-07-14 13:23] LABS: Troponin I 0.07 ng/mL (< 0.04)
[2018-07-14] MEDS ORDERED: 0.9 % Sodium Chloride 500 ML IVC ONE (13:49)
[2018-07-14] MEDS ORDERED: traMADol 50 MG TABLET PO PRN (15:37)
[2018-07-14] MEDS ORDERED: D5% in Water 1,000 ML IVC PRN (15:43)
[2018-07-14] MEDS ORDERED: Naloxone 0.4 MG/ML INJ IVP PRN (15:43)
[2018-07-14] MEDS ORDERED: Dextrose Gel 15 GM/37.5 ML TUBE PO PRN ×2 (15:43)
[2018-07-14] MEDS ORDERED: *HR* Dextrose 50 % in Water (Syg) 50 ML SYRINGE IVP PRN (15:43)
--- NOTE | 2018-07-14 15:52 | Internal Med History&Physical ---
Date of Encounter: 07/14/18 Time of Encounter: 15:48 Internal Medicine - H&P: HPI Chief complaint: dyspnea, cough, wheezing Admitted From: Home Plans for Post Hospital Care: Home History of present illness: Mr. Mistry is a 82 year old male with a PMH of atrial fibrillation (AC on Xarelto), COPD (wears 2 L nasal cannula at night), coronary artery disease, DVT, diabetes, GERD, hyperlipidemia, hypertension, myocardial infarction and angioplasty/stent, pacemaker/AICD. He presents to [facility] with 3 day history of worsening shortness of breath, cough which is intermittently productive of sputum but today nonproductive, and coarse expiratory wheezing. Has history of COPD with PFTs in 2017 revealing severe obstructive disease. Additionally, he reports that his is at home sick with pneumonia. He reports that over the last 3 days he has been having increased difficulty breathing and decreased activity tolerance due to dyspnea. He reports that he normally only wears 2 L nasal cannula at night but has been having to wear throughout the day due to increased dyspnea. Additionally, he reports that he continues to be a daily smoker. He denies any fever, chills, chest pain, nausea, vomiting, abdominal pain, extremity swelling or pain, abdominal swelling or pain, weight gain. Lab work in the ED did reveal leukocytosis. He is positive for 2 SIRS criteria with leukocytosis and hypotension but does not appear toxic at this time. Chest x- ray reveals bronchial wall thickening reflecting either inflammation or bronchitis. No consolidative airspace disease found. Low suspicion for aspiration. Given his presentation with increasing dyspnea, increasing needs for respiratory support, leukocytosis and prior history of COPD he is being admitted for further observation for an exacerbation of COPD secondary to suspected bronchitis. He is requiring regular aerosols, steroids and will require IV abx. Past Med Surg Social Fam HX - Past Medical History Medical history: atrial fibrillation, COPD, coronary artery disease, DVT, diabetes, GERD, hyperlipidemia, hypertension, myocardial infarction Additional medical history: CAD, CHF, Neuropathy, COPD. HLD, DVT. Onycomycosis, DDD, DJD, DVT, Pneumothorax with rib fx, smoker, CT, cx pain, elevated PSA, PN, hypotension, hyponatremia, DM, anemia, leukocytosis, thrombo cytopenia, USA, acute renal failure, UTI, syncope, hypernatremia, PAF Psychiatric history: depression - Past Surgical History Surgical History: angioplasty/stent, pacemaker/AICD Additional surgical history: chest tube, AICD, prostatecomy, g tube placement, trach, gastric polyp resected, ulcer surgery, hernia sx x 3, T&A, exploratory lap, foot surgery x 2, LHC, EGD, cataracts - Social History Smoking Status: Current every day smoker Smokeless Tobacco Status: No Alcohol use: none Drug use: none - Family History Father Family Member Ethnicity: Non- Hx Family Cardiac Disorders: Yes Hx Family Respiratory Disorders: Yes Hx Family Cancer: No Hx Family GI Disorders: No Hx Family Endocrine Disorder: Yes Hx Family Neuromuscular Disorders: No Hx Family Neurologic Disorders: No Hx Family HEENT Disorders: No Hx Family Autoimmune Disorders: No Internal Medicine - H&P: Meds Calcium Carbonate/Vitamin D3 [Calcium 500-Vit D3 400 Tablet] 1 tab PO BID 09/19/15 [History] Ferrous Sulfate [Iron] 325 mg PO BID 09/19/15 [History] Linagliptin [Tradjenta] 5 mg PO DAILY 09/19/15 [History] Melatonin [Melatin] 3 mg PO HS 09/19/15 [History] Omeprazole [PriLOSEC] 20 mg PO DAILY 09/19/15 [History] Rivaroxaban [Xarelto] 20 mg PO DAILY 09/19/15 [History] Sertraline [Zoloft] 100 mg PO DAILY 09/19/15 [History] Finasteride [Proscar] 5 mg PO DAILY #30 tablet 11/05/15 [Rx] Atorvastatin [Lipitor] 40 mg PO HS 05/17/16 [History] Insulin ASPART [Novolog] 0 unit SQ TIDWM 05/17/16 [History] Ipratropium/Albuterol Neb [Duoneb] 3 ml IH Q6HR PRN 05/17/16 [History] Ondansetron HCl [Zofran] 4 mg PO BID PRN 05/17/16 [History] Oxygen 2 l NS HS 05/17/16 [History] Ranolazine [Ranexa] 500 mg PO BID 05/17/16 [History] Metoprolol XL (24 HR) Succ [Toprol Xl] 12.5 mg PO DAILY 10/05/16 [History] Amiodarone [Cordarone] 200 mg PO DAILY #30 tablet 03/14/17 [Rx] Furosemide [Lasix] 40 mg PO DAILY #30 tablet 11/11/16 [Rx] Lidocaine Patch [Lidoderm 5% patch] 1 each TP DAILY #30 adh..patch 11/11/16 [Rx] Fluticasone/Salmeterol [Advair Hfa 230-21 Mcg Inhaler] 2 puff IH BID 12/04/17 [History] Insulin Degludec [Tresiba Flextouch U-100] 42 unit SQ HS 12/04/17 [History] Loratadine [Claritin] 10 mg PO DAILY 12/04/17 [History] Roflumilast [Daliresp] 500 mcg PO DAILY 12/04/17 [History] Gabapentin [Neurontin] 800 mg PO TID #30 tablet 12/07/17 [Rx] GuaiFENesin/Dextromethorphan [Robitussin/Dm] 10 ml PO Q6HR PRN udc 12/07/17 [Rx] Donepezil [Aricept] 10 mg PO HS 07/14/18 [History] Potassium Chloride [Klor-Con 10] 10 meq PO BID 07/14/18 [History] Tramadol HCl [Ultram] 100 mg PO TID PRN 07/14/18 [History] Allergy/AdvReac Type Severity Reaction Status Date / Time amitriptyline Allergy Unknown unknown Verified 12/04/17 17:05 All Systems PM: A 10-system review of systems was performed and is negative for pertinent findings except as documented above in the HPI. - Constitutional Constitutional: as per HPI - EENT Eyes: as per HPI Nose, mouth and throat: as per HPI - Cardiovascular Cardiovascular ROS IM: no chest pain, no diaphoresis, no dyspnea, no lightheadedness, no palpitations, no syncope - Respiratory Respiratory: cough (course, non productive), dyspnea, dyspnea on exertion, wheezing, no stridor, no pain on inspiration, no excessive phlegm production, no pain with cough - Gastrointestinal Gastrointestinal: no abdominal pain, no diarrhea, no hematemesis, no hematochezia, no melena, no nausea, no vomiting - Constitutional Vitals: Temp Pulse Resp BP Pulse Ox 97.7 F 77 16 101/60 94 07/14/18 12:17 07/14/18 15:05 07/14/18 15:05 07/14/18 15:05 07/14/18 15:05 General appearance: Present: A&O X 2 Exam: PHYSICAL EXAMINATION: GENERAL: The patient is an elderly male who appears to be in a mildly confused state. Unclear of baseline mental status. Appears to have poor hygiene. He is alert to self and situation but somewhat disoriented to place and time. HEENT: Head is normocephalic and atraumatic. Extraocular muscles are intact. Pupils are equal, round, and reactive to light and accommodation. Very hard of hearing NECK: Supple. No carotid bruits. No lymphadenopathy or thyromegaly. LUNGS; Course breath sounds b/l with expiratory wheezing, symmetrical chest expansion, adequate rise and fall. No tenderness to palpation, no pain with inspiration or expiration. Does not appear to be in respiratory distress, no conversational dyspnea. Does have a prolonged expiratory phase. HEART: Regular rate and rhythm, S1, S2 without murmur/rubs/gallops. ABDOMEN: Soft, nontender, and nondistended. Positive bowel sounds. No hepatosplenomegaly was noted. EXTREMITIES: Without any cyanosis, rash, lesions or edema. NEUROLOGIC: Cranial nerves II through XII are grossly intact. PSYCHIATRIC: Appropriate affect, denies SI/HI, without agitation or anxiety SKIN: No ulceration or induration present. Internal Med - H&P Results - Labs CBC & Chem 7: 07/14/18 12:27 07/14/18 12:27 Labs: Short CBC 07/14/18 Range/Units 12:27 WBC 14.2 H (4.3-11.1) K/mcL Hgb 11.9 L (12.9-16.9) g/dL Hct 37.7 (37.5-50.1) % Plt Count 175 (140-400) K/mcL Neutrophils # 11.9 H (1.6-8.9) K/mcL BMP 07/14/18 12:27 Sodium 137 Potassium 4.4 Chloride 98 Carbon Dioxide 28 BUN 26 H Creatinine 1.27 Glucose 154 H Calcium 9.1 Cardiac Enzymes 07/14/18 Range/Units 12:27 Troponin I 0.07 H* (< 0.04) ng/mL - EKG Data -: EKG Interpreted by Myself - EKG Data EKG comments: Paced rhythm, rate of 80; atrial sensed ventricular pacing 07/14/18 15:53 - Impressions ITS Impressions Chest X-Ray 07/14/18 12:17 IMPRESSION: Emphysema with COPD. Bronchial wall thickening could reflect smoking-related inflammation and/or bronchitis, however given slight basilar predominance, aspiration related inflammation is an additional consideration. No consolidative airspace disease. D/ / Nando Wiggins / Nando Wiggins Interpreting Provider: Nando Wiggins - Assessment and plan (1) Bronchitis Current Visit: Yes Status: Acute Assessment and plan: etiology unclear; viral vs bacterial leukocytosis, dyspnea and hypoxia on presentation Treat with oral steroids, nebulizers, and levaquin IVPB monitor CBC obtain sputum cultures and RIP Nasal cannula for respiratory support; titrate to maintain SPO2 >90% (2) Acute exacerbation of chronic obstructive airways disease Current Visit: Yes Status: Acute Assessment and plan: as above (3) CHF (congestive heart failure) Current Visit: No Status: Acute Assessment and plan: combined systolic and diastolic with EF 35% continue home dose of lasix not in acute exacerbation no s/sx of fluid overload Qualifiers: Qualified Code(s): I50.22 - Chronic systolic (congestive) heart failure (4) Elevated troponin Current Visit: No Status: Acute Assessment and plan: monitor (5) Failure to thrive Current Visit: No Status: Acute Assessment and plan: EMS found patient living in deplorable conditions concerns that he is unable to adequately care for himself consult SS for further need prior to D/C consider TOM at d/c to assess living situation Qualifiers: Failure to thrive age range: in adult Qualified Code(s): R62.7 - Adult failure to thrive (6) Leukocytosis Current Visit: No Status: Acute Assessment and plan: in the setting of dyspnea with AECOPD and bronchitis continue IV Levaquin sent RIP and sputum cultures continue aerosols and PO steroids check am labs Qualifiers: Leukocytosis type: leukemoid reaction Qualified Code(s): D72.823 - Leukemoid reaction (7) Tobacco abuse Current Visit: No Status: Acute Assessment and plan: strongly advised cessation (8) Atrial fibrillation Current Visit: No Status: Chronic Assessment and plan: paced rhythm continue Xarelto Qualifiers: Atrial fibrillation type: paroxysmal Qualified Code(s): I48.0 - Paroxysmal atrial fibrillation (9) CAD (coronary artery disease) Current Visit: No Status: Chronic Assessment and plan: continue cardiac meds chest pain free mild troponin elevation at 0.07 appears to be chronic; obtain additional trop at 1800 for further eval Qualifiers: Coronary Disease-Associated Artery/Lesion type: [place] artery [place] vs. transplanted heart: [place] heart Associated angina: without angina Qualified Code(s): I25.10 - Atherosclerotic heart disease of [place] coronary artery without angina pectoris (10) Diabetes mellitus Current Visit: No Status: Chronic Assessment and plan[facility] Monitor FSBG and adjust PRN Qualifiers: Diabetes mellitus type: type 2 Diabetes mellitus terminal superintendent insulin use: with mcc use Diabetes mellitus complication status: with kidney complications Diabetes mellitus complication detail: with chronic kidney disease Chronic kidney disease stage: stage 3 (moderate) Qualified Code(s): E11.22 - Type 2 diabetes mellitus with diabetic chronic kidney disease; N18.3 - Chronic kidney disease, stage 3 (moderate); N18.3 - Chronic kidney disease, stage 3 (moderate); Z79.4 - superintendent terminal (current) use of insulin; Z79.4 - [facility] (current) use of insulin; Z79.4 - [facility] (current) use of insulin; Z79.4 - [facility] (current) use of insulin (11) DVT prophylaxis Current Visit: No Status: Acute Assessment and plan: Continue Xarelto - Time Spent With Patient Total time spent is greater than 50% in coordination of care (as documented) at patient's floor/unit and/or counseling patient: less than 15 minutes
[2018-07-14] MEDS ORDERED: Levofloxacin 750 MG/150 ML 750 MG/150 ML BAG IVPB SCH (16:00)
[2018-07-14] MEDS: Ipratropium/Albuterol Neb 3 ML IH SCH ×3 (16:56→23:38)
[2018-07-14] MEDS: Insulin LISPRO 300 UNITS/3 ML VIAL SQ SCH (18:21)
[2018-07-14 18:44] LABS: Adenovirus Not Detected (Not Detect); Bordetella Pertussis Not Detected (Not Detect); Chlamydophila pneumoniae Not Detected (Not Detect); Coronavirus 229E Not Detected (Not Detect); Coronavirus HKU1 Not Detected (Not Detect); Coronavirus NL63 Not Detected (Not Detect); Coronavirus OC43 Not Detected (Not Detect); Human Metapneumovirus Not Detected (Not Detect); Human Rhinovirus/Enterovirus Not Detected (Not Detect); Influenza A Subtype 2009 H1 Not Detected (Not Detect); Influenza A Untypeable Not Detected (Not Detect); Influenza B Not Detected (Not Detect); Mycoplasma pneumoniae Not Detected (Not Detect); Parainfluenza Virus 1 Not Detected (Not Detect); Parainfluenza Virus 2 Not Detected (Not Detect); Parainfluenza Virus 3 Not Detected (Not Detect); Parainfluenza Virus 4 Not Detected (Not Detect); Respiratory Syncytial Virus Not Detected (Not Detect)
[2018-07-14] MEDS: Gabapentin 400 MG CAPSULE PO SCH (20:45)
[2018-07-14] MEDS: Ranolazine 500 MG TAB.ER.12H PO SCH (20:45)
[2018-07-14] MEDS: predniSONE 20 MG TABLET PO SCH (20:48)
[2018-07-14] MEDS ORDERED: Insulin LISPRO 300 UNITS/3 ML VIAL SQ SCH (21:00)
[2018-07-14] MEDS ORDERED: Melatonin 3 MG TABLET PO SCH (21:00)
[2018-07-15] MEDS: Ipratropium/Albuterol Neb 3 ML IH SCH ×3 (03:49→11:30)
[2018-07-15 05:03] LABS: Basophils % 0.1 %; Hematocrit 31.5 % (37.5-50.1); Hemoglobin 10.1 g/dL (12.9-16.9); Immature Granulocytes % 0.4 % (0-4); Lymphocytes # 0.4 K/mcL (0.6-4.6); Lymphocytes % 4.3 %; Mean Corpuscular HGB Conc 32.1 g/dL (31.6-35.5); Mean Corpuscular Hemoglobin 28.1 pg (28.0-33.3); Mean Corpuscular Volume 87.7 fL (83.0-100.0); Mean Platelet Volume 10.9 fL (9.4-12.4); Monocytes # 0.1 K/mcL (0.0-1.3); Monocytes % 1.1 %; Neutrophils # 7.9 K/mcL (1.6-8.9); Platelet Count 184 K/mcL (140-400); Red Blood Count 3.59 M/mcL (4.19-5.50); Red Cell Distribution Width 14.9 % (11.5-14.5); Segmented Neutrophils % 94.1 %
[2018-07-15 05:28] LABS: BUN/Creatinine Ratio 26 (6-26); Blood Urea Nitrogen 33 mg/dL (8-23); Calcium 8.4 mg/dL (8.6-10.3); Carbon Dioxide 27 mEq/L (23-29); Chloride 96 mEq/L (98-107); Glucose 280 mg/dL (70-105); Osmolality,Calculated 293 (280-300); Potassium 4.3 mEq/L (3.5-5.1); Sodium 133 mEq/L (136-145); eGFR For Non-African Americans 55 (> 60)
[2018-07-15 07:45] VITALS: BP 121/58
[2018-07-15] MEDS: predniSONE 20 MG TABLET PO SCH (08:19)
[2018-07-15] MEDS: Gabapentin 400 MG CAPSULE PO SCH (08:19)
[2018-07-15] MEDS: Ranolazine 500 MG TAB.ER.12H PO SCH (08:19)
[2018-07-15] MEDS: Insulin LISPRO 300 UNITS/3 ML VIAL SQ SCH (08:20)
[2018-07-15] MEDS ORDERED: Finasteride 5 MG TABLET PO SCH (09:00)
[2018-07-15] MEDS ORDERED: Loratadine 10 MG TABLET PO SCH (09:00)
[2018-07-15] MEDS ORDERED: (Roflumilast [Daliresp] 500 MCG) PO SCH (09:00)
[2018-07-15] MEDS ORDERED: Furosemide 40 MG TABLET PO SCH (09:00)
[2018-07-15] MEDS ORDERED: *HR* Amiodarone 200 MG TABLET PO SCH (09:00)
--- NOTE | 2018-07-15 10:03 | Discharge Summary ---
- NOTES TO OUTPATIENT PROVIDER Notes to Outpatient Provider: AECOPD in the setting of likely bacterial bronchitis. Presented with dyspnea on presentation requiring supplemental O2. Treated with aerosols and IV Levaquin as well as oral steroids. Restart status improving patient now resting comfortably in bed on room air. He is able to ambulate around the unit without difficulty and/or dyspnea. Basic discharge follow-up. He has been instructed to follow-up with PCP within 1 week of discharge. Additionally, he has been given education regarding closer monitoring of blood glucose while on oral steroid burst. Orders not resulted at time of discharge: Pending orders 07/14/18 12:27 Culture,Blood [BC] Stat 07/14/18 16:04 Sputum Culture [Culture,Sputum with Gram Stain] [RM] Routine 07/16/18 04:00 Basic Metabolic Panel AM 0400 Complete Blood Count [HEME] AM 0400 Date of Encounter: 07/15/18 Time of Encounter: 10:01 - Discharge Diagnosis (1) Bronchitis Priority: Primary Status: Acute Assessment and Plan: etiology unclear; viral vs bacterial leukocytosis, dyspnea and hypoxia on presentation Treat with oral steroids, nebulizers, and levaquin IVPB monitor CBC obtain sputum cultures and RIP Nasal cannula for respiratory support; titrate to maintain SPO2 >90% 07/15/18--clinically, the patient appears to have improved overnight. He is now on room air resting comfortably. He is able to ambulate around the room without dyspnea. He is being discharged home with 4 additional days of oral steroids, 5 days of oral Levaquin and nebulizers. Additionally, given his history of diabetes instructed to closely monitor his glucose then he may potentially need to increase his insulin. He is instructed to follow-up with his PCP within 1 week of discharge. (2) Acute exacerbation of chronic obstructive airways disease Priority: Secondary Status: Acute (3) CHF (congestive heart failure) Priority: Secondary Status: Acute Qualifiers: Qualified Code(s): I50.22 - Chronic systolic (congestive) heart failure (4) Elevated troponin Priority: Secondary Status: Acute (5) Failure to thrive Priority: Secondary Status: Acute Qualifiers: Failure to thrive age range: in adult Qualified Code(s): R62.7 - Adult failure to thrive (6) Leukocytosis Priority: Secondary Status: Acute Qualifiers: Leukocytosis type: leukemoid reaction Qualified Code(s): D72.823 - Leukemoid reaction (7) Tobacco abuse Priority: Secondary Status: Acute (8) Atrial fibrillation Priority: Secondary Status: Chronic Qualifiers: Atrial fibrillation type: paroxysmal Qualified Code(s): I48.0 - Paroxysmal atrial fibrillation (9) CAD (coronary artery disease) Priority: Secondary Status: Chronic Qualifiers: Coronary Disease-Associated Artery/Lesion type: [place] artery [place] vs. transplanted heart: [place] heart Associated angina: without angina Qualified Code(s): I25.10 - Atherosclerotic heart disease of [place] coronary artery without angina pectoris (10) Diabetes mellitus Priority: Secondary Status: Chronic Qualifiers: Diabetes mellitus type: type 2 Diabetes mellitus long term care administrator insulin use: with long term care administrator use Diabetes mellitus complication status: with kidney complications Diabetes mellitus complication detail: with chronic kidney disease Chronic kidney disease stage: stage 3 (moderate) Qualified Code(s): E11.22 - Type 2 diabetes mellitus with diabetic chronic kidney disease; N18.3 - Chronic kidney disease, stage 3 (moderate); N18.3 - Chronic kidney disease, stage 3 (moderate); Z79.4 - [employer] [employer] (current) use of insulin; Z79.4 - [facility] [employer] (current) use of insulin; Z79.4 - [facility] [employer] terminal (current) use of insulin; Z79.4 - [facility] (current) use of insulin (11) DVT prophylaxis Priority: Secondary Status: Acute Hospital course: Mr. Mistry is a 82 year old male who presented with dyspnea, cough and wheezing. Acute exacerbation of COPD. Additionally, he was found to have leukocytosis. Most likely exacerbation of COPD with bacterial bronchitis. Respiratory infection panel negative for viral cause. He was treated with oral steroids, scheduled nebulizer treatments and Levaquin and remarkably improved overnight. Patient now resting comfortably on room air and is able to ambulate throughout the room without dyspnea. He is being discharged today with a 4 day course of oral prednisone, 5 days of Levaquin. Additionally, he has been instructed to participate in supportive care for bronchitis. He is to follow up with his PCP early next week. Patient verbalizes understanding denies any further questions at this time. Discharge discussed with: patient, nurse Time spent discussing smoking cessation with patient: 3 to 10 minutes - Time Spent with Patient Total time spent providing and/or coordinating discharge services: Less than 30 minutes - Discharge Medications Prescriptions: levoFLOXacin [Levaquin] 500 mg PO DAILY 5 Days #5 tablet predniSONE [PredniSONE] 40 mg PO DAILY 4 Days #8 tablet Home Medications: Calcium Carbonate/Vitamin D3 [Calcium 500-Vit D3 400 Tablet] 1 tab PO BID 09/19/15 [History] Ferrous Sulfate [Iron] 325 mg PO BID 09/19/15 [History] Linagliptin [Tradjenta] 5 mg PO DAILY 09/19/15 [History] Melatonin [Melatin] 3 mg PO HS 09/19/15 [History] Omeprazole [PriLOSEC] 20 mg PO DAILY 09/19/15 [History] Rivaroxaban [Xarelto] 20 mg PO DAILY 09/19/15 [History] Sertraline [Zoloft] 100 mg PO DAILY 09/19/15 [History] Finasteride [Proscar] 5 mg PO DAILY #30 tablet 11/05/15 [Rx] Atorvastatin [Lipitor] 40 mg PO HS 05/17/16 [History] Insulin ASPART [Novolog] 0 unit SQ TIDWM 05/17/16 [History] Ipratropium/Albuterol Neb [Duoneb] 3 ml IH Q6HR PRN 05/17/16 [History] Ondansetron HCl [Zofran] 4 mg PO BID PRN 05/17/16 [History] Oxygen 2 l NS HS 05/17/16 [History] Ranolazine [Ranexa] 500 mg PO BID 05/17/16 [History] Metoprolol XL (24 HR) Succ [Toprol Xl] 12.5 mg PO DAILY 10/05/16 [History] Amiodarone [Cordarone] 200 mg PO DAILY #30 tablet 11/11/16 [Rx] Furosemide [Lasix] 40 mg PO DAILY #30 tablet 11/11/16 [Rx] Lidocaine Patch [Lidoderm 5% patch] 1 each TP DAILY #30 adh..patch 11/11/16 [Rx] Fluticasone/Salmeterol [Advair Hfa 230-21 Mcg Inhaler] 2 puff IH BID 12/04/17 [History] Insulin Degludec [Tresiba Flextouch U-100] 42 unit SQ HS 12/04/17 [History] Loratadine [Claritin] 10 mg PO DAILY 12/04/17 [History] Roflumilast [Daliresp] 500 mcg PO DAILY 12/04/17 [History] Gabapentin [Neurontin] 800 mg PO TID #30 tablet 12/07/17 [Rx] GuaiFENesin/Dextromethorphan [Robitussin/Dm] 10 ml PO Q6HR PRN udc 12/07/17 [Rx] Donepezil [Aricept] 10 mg PO HS 07/14/18 [History] Potassium Chloride [Klor-Con 10] 10 meq PO BID 07/14/18 [History] Tramadol HCl [Ultram] 100 mg PO TID PRN 07/14/18 [History] levoFLOXacin [Levaquin] 500 mg PO DAILY 5 Days #5 tablet 07/15/18 [Rx] predniSONE [PredniSONE] 40 mg PO DAILY 4 Days #8 tablet 07/15/18 [Rx] Allergies/Adverse Reactions: Allergy/AdvReac Type Severity Reaction Status Date / Time amitriptyline Allergy Unknown unknown Verified 12/04/17 17:05 Date of admission: 07/14/18 14:43 Primary care physician: PCP NONE Consults: 07/14/18 15:45 Consult to Occupational Therapy [CONS] Routine Comment: Evaluate, develop and implement POC Reason for Consult: assess functional capacity Does patient have active BEDREST order?: No Is patient medically & hemodynamically stable?: Yes Patient assessed for mobility or mobilized this visit?: No Consult to Physical Therapy [CONS] Routine Comment: Evaluate, develop and implement POC Reason for Consult: assess functional capacity Does patient have active BEDREST order?: No Is patient medically & hemodynamically stable?: Yes Patient assessed for mobility or mobilized this visit?: No Consult to Curing Oven Tender [CONS] Routine Reason for SW Consult: D/C planning; EMS found patients dwelling in unclean condition. May need TOM at d/c to eval living situation and ability to care for self 07/15/18 07:44 Consult to Nurse Navigator [CONS] Routine Comment: COPD Discharging clinician: Benigno Buitrago Anticipated date of discharge: 07/15/18 - Constitutional Vitals: Temp Pulse Resp BP Pulse Ox 98.5 F 73 18 121/58 90 07/15/18 07:39 07/15/18 07:39 07/15/18 07:50 07/15/18 07:39 07/15/18 08:28 General appearance: Present: A&O X 2 Exam: PHYSICAL EXAMINATION: GENERAL: The patient is an elderly male who appears to be in a mildly confused state. Unclear of baseline mental status. Appears to have poor hygiene. He is alert to self and situation but somewhat disoriented to place and time. HEENT: Head is normocephalic and atraumatic. Extraocular muscles are intact. Pupils are equal, round, and reactive to light and accommodation. Very hard of hearing NECK: Supple. No carotid bruits. No lymphadenopathy or thyromegaly. LUNGS; Course breath sounds persist but are improving. He has b/l with expiratory wheezing, symmetrical chest expansion, adequate rise and fall. No tenderness to palpation, no pain with inspiration or expiration. Does not appear to be in respiratory distress, no conversational dyspnea. Does have a prolonged expiratory phase. I witnessed him ambulating throughout his room without dyspnea. HEART: Regular rate and rhythm, S1, S2 without murmur/rubs/gallops. ABDOMEN: Soft, nontender, and nondistended. Positive bowel sounds. No hepatosplenomegaly was noted. EXTREMITIES: Without any cyanosis, rash, lesions or edema. NEUROLOGIC: Cranial nerves II through XII are grossly intact. PSYCHIATRIC: Appropriate affect, denies SI/HI, without agitation or anxiety SKIN: No ulceration or induration present. - Patient Status Disposition: Home, Self-Care Condition: Good Functional capacity at discharge: independent ambulation Overall status at discharge: patient is progressing back to baseline - Discharge Instructions Instructions: Chronic Obstructive Pulmonary Disease (DC) Forms: ED Satisfaction Letter - Diet and Activity Activity: increase activity as tolerated, resume usual activities as tolerated Diet: diabetic diet, low fat, low cholesterol, low salt diet
--- NOTE | 2018-07-15 10:26 | Electrocardiograph Report ---
[facility] Test Date: 2018-07-14 Pat Name: Tom Mistry Department: [id number] Room: 3B33 Gender: M Baggage Porter: : [id number] Requested By: Jama Edwards Order Number: [id number] Reading MD: Iftikhar Vásquez Measurements Intervals [place] Rate: 80 P: 41 IL: 193 QRS: 224 QRSD: 158 T: 27 QT: 450 QTc: 520 Interpretive Statements Atrial-sensed ventricular-paced rhythm No further analysis attempted due to paced rhythm Electronically Signed On 07-15-2018 10:24:52 EST by Iftikhar Vásquez
[2018-07-15] MEDS ORDERED: *HR* Rivaroxaban 10 MG TABLET PO SCH (17:00)
== END 2018-07-15 12:46 | disposition home or self-care (01) ==
LOC: 3BNU 12:13 → EMEROOARM 12:13 → 3BNU 15:25
PROVIDERS: ADMIT Internal Medicine; ATTEND Internal Medicine

== ENCOUNTER 2018-10-07 14:50 | Inpatient (IN) ==
[2018-10-07 15:53] LABS: Basophils % 0.4 %; Eosinophils # 0.1 K/mcL (0.0-0.6); Eosinophils % 1.3 %; Hematocrit 36.7 % (37.5-50.1); Hemoglobin 11.1 g/dL (12.9-16.9); Immature Granulocytes % 0.5 % (0-4); Lymphocytes # 1.3 K/mcL (0.6-4.6); Lymphocytes % 13.3 %; Mean Corpuscular HGB Conc 30.2 g/dL (31.6-35.5); Mean Corpuscular Hemoglobin 26.3 pg (28.0-33.3); Mean Platelet Volume 10.7 fL (9.4-12.4); Monocytes # 0.8 K/mcL (0.0-1.3); Monocytes % 7.9 %; Neutrophils # 7.2 K/mcL (1.6-8.9); Platelet Count 251 K/mcL (140-400); Red Blood Count 4.22 M/mcL (4.19-5.50); Red Cell Distribution Width 19.4 % (11.5-14.5); Segmented Neutrophils % 76.6 %
[2018-10-07 16:11] LABS: BUN/Creatinine Ratio 19 (6-26); Blood Urea Nitrogen 19 mg/dL (8-23); Calcium 9.2 mg/dL (8.6-10.3); Carbon Dioxide 30 mEq/L (23-29); Chloride 102 mEq/L (98-107); Glucose 66 mg/dL (70-105); Osmolality,Calculated 292 (280-300); Potassium 4.2 mEq/L (3.5-5.1); Sodium 141 mEq/L (136-145); eGFR For Non-African Americans > 60 (> 60)
--- NOTE | 2018-10-07 16:24 | Emergency Department Note ---
Disposition Clinical Impression: Pleural effusion, SOB (shortness of breath), Elevated troponin Anemia Qualifiers: Anemia type: unspecified type Qualified Code(s): D64.9 - Anemia, unspecified Disposition: Admitted As Inpatient Forms: ED Satisfaction Letter Time of Disposition: 18:54 General Adult HPI - General Chief complaint: ED Shortness of Breath/Dyspnea Stated complaint: Abnormal chest xray Time Seen by Provider: 10/07/18 16:17 Source: patient Limitations: no limitations - History of Present Illness Pain Scale: 0 - Related Data Home Medications Medication Instructions Recorded Confirmed RX: Calcium Carbonate/Vitamin D3 1 tab PO BID 09/19/15 12/04/17 [Calcium 500-Vit D3 400 Tablet] RX: Ferrous Sulfate [Iron] 325 mg PO BID 09/19/15 12/04/17 RX: Linagliptin [Tradjenta] 5 mg PO DAILY 09/19/15 07/14/18 RX: Melatonin [Melatin] 3 mg PO HS 09/19/15 12/04/17 RX: Omeprazole [PriLOSEC] 20 mg PO DAILY 09/19/15 07/14/18 RX: Rivaroxaban [Xarelto] 20 mg PO DAILY 09/19/15 07/14/18 RX: Sertraline [Zoloft] 100 mg PO DAILY 09/19/15 07/14/18 RX: Atorvastatin [Lipitor] 40 mg PO HS 05/17/16 07/14/18 RX: Insulin ASPART [Novolog] 0 unit SQ TIDWM 05/17/16 12/04/17 RX: Ipratropium/Albuterol Neb 3 ml IH Q6HR PRN 05/17/16 12/04/17 [Duoneb] RX: Ondansetron HCl [Zofran] 4 mg PO BID PRN 05/17/16 07/14/18 RX: Oxygen 2 l NS HS 05/17/16 12/04/17 RX: Ranolazine [Ranexa] 500 mg PO BID 05/17/16 07/14/18 RX: Metoprolol XL (24 HR) Succ 12.5 mg PO DAILY 10/05/16 12/04/17 [Toprol Xl] RX: Fluticasone/Salmeterol [Advair 2 puff IH BID 12/04/17 12/04/17 Hfa 230-21 Mcg Inhaler] RX: Insulin Degludec [Tresiba 42 unit SQ HS 12/04/17 12/04/17 Flextouch U-100] RX: Loratadine [Claritin] 10 mg PO DAILY 12/04/17 12/04/17 RX: Roflumilast [Daliresp] 500 mcg PO DAILY 12/04/17 07/14/18 RX: Donepezil [Aricept] 10 mg PO HS 07/14/18 07/14/18 RX: Potassium Chloride [Klor-Con 10 meq PO BID 07/14/18 07/14/18 10] RX: Tramadol HCl [Ultram] 100 mg PO TID PRN 07/14/18 07/14/18 Previous Rx's Medication Instructions Recorded RX: Finasteride [Proscar] 5 mg PO DAILY #30 tablet 11/05/15 RX: Amiodarone [Cordarone] 200 mg PO DAILY #30 tablet 11/11/16 RX: Furosemide [Lasix] 40 mg PO DAILY #30 tablet 11/11/16 RX: Lidocaine Patch [Lidoderm 5% 1 each TP DAILY #30 adh..patch 11/11/16 patch] RX: Gabapentin [Neurontin] 800 mg PO TID #30 tablet 12/07/17 RX: GuaiFENesin/Dextromethorphan 10 ml PO Q6HR PRN udc 12/07/17 [Robitussin/Dm] Allergies Allergy/AdvReac Type Severity Reaction Status Date / Time amitriptyline Allergy Unknown unknown Verified 12/04/17 17:05 Past Medical History - Past Medical History Medical history: Reports: atrial fibrillation, COPD, coronary artery disease, DVT, diabetes, GERD, hyperlipidemia, hypertension, myocardial infarction Surgical history: Reports: angioplasty/stent, pacemaker/AICD Psychiatric history: Reports: depression - Social History Smoking Status: Current every day smoker Smokeless Tobacco Status: No Alcohol use: Reports: none Drug use: Reports: none Physical Exam - General Limitations: no limitations General appearance: alert, in no apparent distress Course Vital Signs Temperature 97.9 F 10/07/18 15:07 Pulse Rate 84 10/07/18 15:07 Respiratory Rate 20 10/07/18 15:07 Blood Pressure 112/64 10/07/18 15:07 O2 Sat by Pulse Oximetry 95 02/07/19 15:07 Temperature 97.9 F 10/07/18 15:07 Pulse Rate 69 10/07/18 18:29 Respiratory Rate 20 10/07/18 18:00 Blood Pressure 129/62 10/07/18 18:00 O2 Sat by Pulse Oximetry 95 10/07/18 18:29 Oxygen Delivery Oxygen Delivery Nasal Cannula Medical Decision Making - Lab Data Result diagrams: 10/07/18 15:28 10/07/18 15:28 Lab Results 10/07/18 10/07/18 10/07/18 Range/Units 15:28 15:28 15:28 WBC 9.4 (4.3-11.1) K/mcL RBC 4.22 (4.19-5.50) M/mcL Hgb 11.1 L (12.9-16.9) g/dL Hct 36.7 L (37.5-50.1) % MCV 87.0 (83.0-100.0) fL MCH 26.3 L (28.0-33.3) pg MCHC 30.2 L (31.6-35.5) g/dL RDW 19.4 H (11.5-14.5) % Plt Count 251 (140-400) K/mcL MPV 10.7 (9.4-12.4) fL Immature Gran % 0.5 (0-4) % Seg Neutrophils % 76.6 % Lymphocytes % 13.3 % Monocytes % 7.9 % Eosinophils % 1.3 % Basophils % 0.4 % Neutrophils # 7.2 (1.6-8.9) K/mcL Lymphocytes # 1.3 (0.6-4.6) K/mcL Monocytes # 0.8 (0.0-1.3) K/mcL Eosinophils # 0.1 (0.0-0.6) K/mcL Basophils # 0.0 (0.0-0.2) K/mcL Sodium 141 (136-145) mEq/L Potassium 4.2 (3.5-5.1) mEq/L Chloride 102 (98-107) mEq/L Carbon Dioxide 30 H (23-29) mEq/L BUN 19 (8-23) mg/dL Creatinine 0.98 (0.70-1.30) mg/dL Est GFR ( Amer) > 60 (> 60) Est GFR (Non-Af Amer) > 60 (> 60) BUN/Creatinine Ratio 19 (6-26) Glucose 66 L (70-105) mg/dL Calculated Osmolality 292 (280-300) Lactic Acid 0.8 (0.5-2.2) mmol/L Calcium 9.2 (8.6-10.3) mg/dL Troponin I 0.30 H* (< 0.04) ng/mL B-Natriuretic Peptide (Less than 100) pg/mL 10/07/18 Range/Units 15:28 WBC (4.3-11.1) K/mcL RBC (4.19-5.50) M/mcL Hgb (12.9-16.9) g/dL Hct (37.5-50.1) % MCV (83.0-100.0) fL MCH (28.0-33.3) pg MCHC (31.6-35.5) g/dL RDW (11.5-14.5) % Plt Count (140-400) K/mcL MPV (9.4-12.4) fL Immature Gran % (0-4) % Seg Neutrophils % % Lymphocytes % % Monocytes % % Eosinophils % % Basophils % % Neutrophils # (1.6-8.9) K/mcL Lymphocytes # (0.6-4.6) K/mcL Monocytes # (0.0-1.3) K/mcL Eosinophils # (0.0-0.6) K/mcL Basophils # (0.0-0.2) K/mcL Sodium (136-145) mEq/L Potassium (3.5-5.1) mEq/L Chloride (98-107) mEq/L Carbon Dioxide (23-29) mEq/L BUN (8-23) mg/dL Creatinine (0.70-1.30) mg/dL Est GFR ( Amer) (> 60) Est GFR (Non-Af Amer) (> 60) BUN/Creatinine Ratio (6-26) Glucose (70-105) mg/dL Calculated Osmolality (280-300) Lactic Acid (0.5-2.2) mmol/L Calcium (8.6-10.3) mg/dL Troponin I (< 0.04) ng/mL B-Natriuretic Peptide 371 H (Less than 100) pg/mL Attestation Statement - Attestation Attestation: I examined this patient and my medical decision-making was reviewed with the Resident Physician. I agree with the documented findings, disposition and treatment plan as described except to the extent set forth below. Face to face time provided Patient presents at the recommendation of his primary care provider after having outpatient chest x-ray showing a large right-sided pleural effusion. The patient does admit to intermittent chest discomfort recently. He is hard of hearing but appears otherwise in no acute distress. Chest x-ray image reviewed by me. Labs drawn per protocol at triage reviewed by me. ECG shows a paced rhythm
--- NOTE | 2018-10-07 16:36 | Emergency Department Note ---
Disposition Clinical Impression: Pleural effusion, SOB (shortness of breath), Elevated troponin Anemia Qualifiers: Anemia type: unspecified type Qualified Code(s): D64.9 - Anemia, unspecified Disposition: Admitted As Inpatient Forms: ED Satisfaction Letter Time of Disposition: 17:44 General Adult HPI - General Chief complaint: ED Shortness of Breath/Dyspnea Stated complaint: Abnormal chest xray Time Seen by Provider: 10/07/18 16:17 Source: patient Limitations: no limitations Nursing Notes Reviewed: Yes Vital Signs Reviewed: Yes - History of Present Illness HPI Narrative: Patient is an 82-year-old male with significant past medical history. Presents to the emergency room due to an abnormal x-ray ordered by his primary care art palafox. Chest x-ray found a new large right pleural effusion with overlying compressive atelectasis. Patient states he is currently short of breath but he said he has been short of breath for his whole life. There is not any new shortness of breath. Patient is also some mild chest pain. Patient also admits to having some intermittent fevers. Patient has difficulty hearing history was difficult to obtain. Denies any abdominal pain, nausea, vomiting, diarrhea, weakness, headache, vision changes Pain Scale: 0 - Related Data Home Medications Medication Instructions Recorded Confirmed Calcium Carbonate/Vitamin D3 1 tab PO BID 09/19/15 12/04/17 [Calcium 500-Vit D3 400 Tablet] Ferrous Sulfate [Iron] 325 mg PO BID 09/19/15 12/04/17 Linagliptin [Tradjenta] 5 mg PO DAILY 09/19/15 07/14/18 Melatonin [Melatin] 3 mg PO HS 09/19/15 12/04/17 Omeprazole [PriLOSEC] 20 mg PO DAILY 09/19/15 07/14/18 Rivaroxaban [Xarelto] 20 mg PO DAILY 09/19/15 07/14/18 Sertraline [Zoloft] 100 mg PO DAILY 09/19/15 07/14/18 Atorvastatin [Lipitor] 40 mg PO HS 05/17/16 07/14/18 Insulin ASPART [Novolog] 0 unit SQ TIDWM 05/17/16 12/04/17 Ipratropium/Albuterol Neb [Duoneb] 3 ml IH Q6HR PRN 05/17/16 12/04/17 Ondansetron HCl [Zofran] 4 mg PO BID PRN 05/17/16 07/14/18 Oxygen 2 l NS HS 05/17/16 12/04/17 Ranolazine [Ranexa] 500 mg PO BID 05/17/16 07/14/18 Metoprolol XL (24 HR) Succ [Toprol 12.5 mg PO DAILY 10/05/16 12/04/17 Xl] Fluticasone/Salmeterol [Advair Hfa 2 puff IH BID 12/04/17 12/04/17 230-21 Mcg Inhaler] Insulin Degludec [Tresiba 42 unit SQ HS 12/04/17 12/04/17 Flextouch U-100] Loratadine [Claritin] 10 mg PO DAILY 12/04/17 12/04/17 Roflumilast [Daliresp] 500 mcg PO DAILY 12/04/17 07/14/18 Donepezil [Aricept] 10 mg PO HS 07/14/18 07/14/18 Potassium Chloride [Klor-Con 10] 10 meq PO BID 07/14/18 07/14/18 Tramadol HCl [Ultram] 100 mg PO TID PRN 07/14/18 07/14/18 Previous Rx's Medication Instructions Recorded Finasteride [Proscar] 5 mg PO DAILY #30 tablet 11/05/15 Amiodarone [Cordarone] 200 mg PO DAILY #30 tablet 11/11/16 Furosemide [Lasix] 40 mg PO DAILY #30 tablet 11/11/16 Lidocaine Patch [Lidoderm 5% patch] 1 each TP DAILY #30 adh..patch 11/11/16 Gabapentin [Neurontin] 800 mg PO TID #30 tablet 12/07/17 GuaiFENesin/Dextromethorphan 10 ml PO Q6HR PRN udc 12/07/17 [Robitussin/Dm] Allergies Allergy/AdvReac Type Severity Reaction Status Date / Time amitriptyline Allergy Unknown unknown Verified 12/04/17 17:05 Constitutional: Reports: as per HPI Eyes: Reports: as per HPI ENT ED: Denies: congestion Cardiovascular: Reports: as per HPI Respiratory: Reports: as per HPI Gastrointestinal: Reports: as per HPI Genitourinary: Denies: urgency Musculoskeletal: Reports: myalgia Integumentary: Denies: rash Neurological: Reports: as per HPI Endocrine: Denies: fatigue Allergic/Immunologic: Denies: urticaria Past Medical History - Past Medical History Medical history: Reports: atrial fibrillation, COPD, coronary artery disease, DVT, diabetes, GERD, hyperlipidemia, hypertension, myocardial infarction Surgical history: Reports: angioplasty/stent, pacemaker/AICD Psychiatric history: Reports: depression - Social History Smoking Status: Current every day smoker Smokeless Tobacco Status: No Alcohol use: Reports: none Drug use: Reports: none Physical Exam Patient is lying in bed. He is pleasant. He has difficulty hearing. - General Limitations: no limitations General appearance: alert, in no apparent distress - Head Head exam: atraumatic, normocephalic, normal inspection - Eye Eye exam: Present: normal appearance, PERRL, EOMI - ENT ENT exam: normal exam, normal oropharynx, mucous membranes moist - Chest Chest inspection: Present: normal inspection, symmetric chest wall rise. Absent: tenderness Course Vital Signs Temperature 97.9 F 10/07/18 15:07 Pulse Rate 84 10/07/18 15:07 Respiratory Rate 20 10/07/18 15:07 Blood Pressure 112/64 10/07/18 15:07 O2 Sat by Pulse Oximetry 95 10/07/18 15:07 Temperature 97.9 F 10/07/18 15:07 Pulse Rate 84 10/07/18 15:07 Respiratory Rate 20 10/07/18 15:07 Blood Pressure 112/64 10/07/18 15:07 O2 Sat by Pulse Oximetry 95 10/07/18 15:07 Oxygen Delivery Oxygen Delivery Room Air Medical Decision Making - [facility] Narrative Medical decision making narrative: Patient has large pleural effusion. CT chest was ordered. EKG paced rhythm. Ventricular rate of 72. QRS 165, QT/QTC 451/[address] segment changes. Patient with elevated troponin of 0.3. Patient says he has mild chest pain but this is at his baseline. Patient is on Zarontin to no need for urgent cardiac intervention Lipase is elevated troponins but has not been as high. BNP was elevated. Hemoglobin decreased he was at or above his baseline. CT pending. He found partially loculated right pleural effusion. Patient will likely need diagnostic thoracocentesis. As it is of unknown etiology at this time. Dr. Vilchis accepts admission. - Lab Data Result diagrams: 10/07/18 15:28 10/07/18 15:28 Lab Results 10/07/18 10/07/18 10/07/18 Range/Units 15:28 15:28 15:28 WBC 9.4 (4.3-11.1) K/mcL RBC 4.22 (4.19-5.50) M/mcL Hgb 11.1 L (12.9-16.9) g/dL Hct 36.7 L (37.5-50.1) % MCV 87.0 (83.0-100.0) fL MCH 26.3 L (28.0-33.3) pg MCHC 30.2 L (31.6-35.5) g/dL RDW 19.4 H (11.5-14.5) % Plt Count 251 (140-400) K/mcL MPV 10.7 (9.4-12.4) fL Immature Gran % 0.5 (0-4) % Seg Neutrophils % 76.6 % Lymphocytes % 13.3 % Monocytes % 7.9 % Eosinophils % 1.3 % Basophils % 0.4 % Neutrophils # 7.2 (1.6-8.9) K/mcL Lymphocytes # 1.3 (0.6-4.6) K/mcL Monocytes # 0.8 (0.0-1.3) K/mcL Eosinophils # 0.1 (0.0-0.6) K/mcL Basophils # 0.0 (0.0-0.2) K/mcL Sodium 141 (136-145) mEq/L Potassium 4.2 (3.5-5.1) mEq/L Chloride 102 (98-107) mEq/L Carbon Dioxide 30 H (23-29) mEq/L BUN 19 (8-23) mg/dL Creatinine 0.98 (0.70-1.30) mg/dL Est GFR ( Amer) > 60 (> 60) Est GFR (Non-Af Amer) > 60 (> 60) BUN/Creatinine Ratio 19 (6-26) Glucose 66 L (70-105) mg/dL Calculated Osmolality 292 (280-300) Lactic Acid 0.8 (0.5-2.2) mmol/L Calcium 9.2 (8.6-10.3) mg/dL Troponin I 0.30 H* (< 0.04) ng/mL B-Natriuretic Peptide (Less than 100) pg/mL 10/07/18 Range/Units 15:28 WBC (4.3-11.1) K/mcL RBC (4.19-5.50) M/mcL Hgb (12.9-16.9) g/dL Hct (37.5-50.1) % MCV (83.0-100.0) fL MCH (28.0-33.3) pg MCHC (31.6-35.5) g/dL RDW (11.5-14.5) % Plt Count (140-400) K/mcL MPV (9.4-12.4) fL Immature Gran % (0-4) % Seg Neutrophils % % Lymphocytes % % Monocytes % % Eosinophils % % Basophils % % Neutrophils # (1.6-8.9) K/mcL Lymphocytes # (0.6-4.6) K/mcL Monocytes # (0.0-1.3) K/mcL Eosinophils # (0.0-0.6) K/mcL Basophils # (0.0-0.2) K/mcL Sodium (136-145) mEq/L Potassium (3.5-5.1) mEq/L Chloride (98-107) mEq/L Carbon Dioxide (23-29) mEq/L BUN (8-23) mg/dL Creatinine (0.70-1.30) mg/dL Est GFR ( Amer) (> 60) Est GFR (Non-Af Amer) (> 60) BUN/Creatinine Ratio (6-26) Glucose (70-105) mg/dL Calculated Osmolality (280-300) Lactic Acid (0.5-2.2) mmol/L Calcium (8.6-10.3) mg/dL Troponin I (< 0.04) ng/mL B-Natriuretic Peptide 371 H (Less than 100) pg/mL
--- NOTE | 2018-10-07 17:55 | Internal Med History&Physical ---
Date of Encounter: 10/07/18 Time of Encounter: 17:51 Internal Medicine - H&P: HPI Chief complaint: shortness of breath Admitted From: Home Plans for Post Hospital Care: Home History of present illness: Mr. Mistry is a 82 year old male smoker, CHF, COPD (emphysema), diabetes, afib, AICD/pacemaker, chronic respiratory failure, pt is hard of hearing, CAD, ischemic cardiomyopathy, and VT. Pt states he has a abdominal scar from cancer surgery but grand daughter was unaware of hx of CA. Pt is hard of hearing. Grand-daughter at bedside states PCP did a chest x ray and informed them that patient had "fluid on his lungs." Pt has been SOB for about for about 11/2 week. He states he is on oxygen 21/2 L N which he states he only uses it when he needs it. Smokes 1/2 PPD and has smoked " all his life." States he has had increasing LE edema. States he is unable to lay flat to sleep and typically sleeps on his side. Pt also states he fell about one week ago. PCP imaged his R ankle and no evidence of fx. Pt denies coughing. He denies fever or chills. He denies chest pain. He reports unexpected weight loss and melena. GD states PCP had planned to have him see a GI out pt. He denies prior history of colonoscopy he is aware of. CODE STATUS: FULL CODE In ED WBC 9.4, Hgb 11.9, hct 36.7 NA 141, K 4.2, Cr 0.98 Troponin 0.3 Chest x ray 10/07/18 XR/XR chest 2V IMPRESSION: New large right pleural effusion with overlying compressive atelectasis. Results of this examination were verbally discussed with the ordering nurse practitioner, David Shin, at 1:45 p.m. on 10/07/2017. I also discussed the results of the chest x-ray with the patient, who did not appear to be short of breath or in distress at the time of the encounter. Chest CT CT/CT chest wo con IMPRESSION: 1. Large right pleural effusion of uncertain etiology, which appears at least partially loculated and results in compressive atelectasis of much of the right lung 2. Advanced pulmonary emphysema 3. Calcific coronary atherosclerosis 4. Left ventricular apical calcifications should be correlated with any history of myocardial infarction Past Med Surg Social Fam HX - Past Medical History Medical history: atrial fibrillation, COPD, coronary artery disease, DVT, diabetes, GERD, hyperlipidemia, hypertension, myocardial infarction Additional medical history: CAD, CHF, Neuropathy, COPD. HLD, DVT. Onycomycosis, DDD, DJD, DVT, Pneumothorax with rib fx, smoker, VT, cx pain, elevated PSA, PN, hypotension, hyponatremia, DM, anemia, leukocytosis, thrombocytopenia, USA, acute renal failure, UTI, syncope, hypernatremia, PAF Psychiatric history: depression - Past Surgical History Surgical History: angioplasty/stent, pacemaker/AICD Additional surgical history: chest tube, AICD, prostatecomy, g tube placement, trach, gastric polyp resected, ulcer surgery, hernia sx x 3, T&A, exploratory lap, foot surgery x 2, LHC, EGD, cataracts - Social History Smoking Status: Current every day smoker Smokeless Tobacco Status: No Alcohol use: none Drug use: none - Family History Father Family Member Ethnicity: Non- Hx Family Cardiac Disorders: Yes Hx Family Respiratory Disorders: Yes Hx Family Cancer: No Hx Family GI Disorders: No Hx Family Endocrine Disorder: Yes Hx Family Neuromuscular Disorders: No Hx Family Neurologic Disorders: No Hx Family HEENT Disorders: No Hx Family Autoimmune Disorders: No Internal Medicine - H&P: Meds Calcium Carbonate/Vitamin D3 [Calcium 500-Vit D3 400 Tablet] 1 tab PO BID 09/19/15 [History] Ferrous Sulfate [Iron] 325 mg PO BID 09/19/15 [History] Linagliptin [Tradjenta] 5 mg PO DAILY 09/19/15 [History] Melatonin [Melatin] 3 mg PO HS 09/19/15 [History] Omeprazole [PriLOSEC] 20 mg PO DAILY 09/19/15 [History] Rivaroxaban [Xarelto] 20 mg PO DAILY 09/19/15 [History] Sertraline [Zoloft] 100 mg PO DAILY 09/19/15 [History] Finasteride [Proscar] 5 mg PO DAILY #30 tablet 11/05/15 [Rx] Atorvastatin [Lipitor] 40 mg PO HS 05/17/16 [History] Insulin ASPART [Novolog] 0 unit SQ TIDWM 05/17/16 [History] Ipratropium/Albuterol Neb [Duoneb] 3 ml IH Q6HR PRN 05/17/16 [History] Ondansetron HCl [Zofran] 4 mg PO BID PRN 05/17/16 [History] Oxygen 2 l NS HS 05/17/16 [History] Ranolazine [Ranexa] 500 mg PO BID 05/17/16 [History] Metoprolol XL (24 HR) Succ [Toprol Xl] 12.5 mg PO DAILY 10/05/16 [History] Amiodarone [Cordarone] 200 mg PO DAILY #30 tablet 11/11/16 [Rx] Furosemide [Lasix] 40 mg PO DAILY #30 tablet 11/11/16 [Rx] Lidocaine Patch [Lidoderm 5% patch] 1 each TP DAILY #30 adh..patch 11/11/16 [Rx] Fluticasone/Salmeterol [Advair Hfa 230-21 Mcg Inhaler] 2 puff IH BID 12/04/17 [History] Insulin Degludec [Tresiba Flextouch U-100] 42 unit SQ HS 12/04/17 [History] Loratadine [Claritin] 10 mg PO DAILY 12/04/17 [History] Roflumilast [Daliresp] 500 mcg PO DAILY 12/04/17 [History] Gabapentin [Neurontin] 800 mg PO TID #30 tablet 12/07/17 [Rx] GuaiFENesin/Dextromethorphan [Robitussin/Dm] 10 ml PO Q6HR PRN udc 12/07/17 [Rx] Donepezil [Aricept] 10 mg PO HS 07/14/18 [History] Potassium Chloride [Klor-Con 10] 10 meq PO BID 07/14/18 [History] Tramadol HCl [Ultram] 100 mg PO TID PRN 07/14/18 [History] Allergy/AdvReac Type Severity Reaction Status Date / Time amitriptyline Allergy Unknown unknown Verified 12/04/17 17:05 All Systems PM: A 10-system review of systems was performed and is negative for pertinent findings except as documented above in the HPI. - Constitutional Vitals: Temp Pulse Resp BP Pulse Ox 97.9 F 84 20 112/64 95 10/07/18 15:07 10/07/18 15:07 10/07/18 15:07 10/07/18 15:07 10/07/18 15:07 General appearance: Present: A&O X 3, no acute distress Exam: . - Head Head exam: Present: atraumatic, normocephalic - Eye Eye exam: Present: PERRL, conjuntiva pink, sclera anicteric Pupils: Present: PERRL - Neck Neck exam general surgery: Present: supple, trachea midline. Absent: lymphadenopathy - Respiratory Respiratory exam: Present: decreased breath sounds. Absent: accessory muscle use, CTAB, rales, rhonchi, wheezes - Cardiovascular Cardiovascular exam: Present: RRR, +S1, +S2. Absent: diastolic murmur, gallop, rubs, systolic murmur Additional comments: pacemaker R chest wall - GI/Abdominal GI/Abdominal exam: Present: normal bowel sounds, soft, no peritoneal signs. Absent: distended, tenderness - Extremities Exam Extremities exam: Present: warm, radial pulses palpable and symmetrical. Absent: calf tenderness, cyanotic, pedal edema - Neurological Exam Neurological exam: Present: CN II-XII intact, oriented X3, no focal deficits. Absent: pronater drift, facial droop, speech deficit - Skin Skin exam: Present: dry, intact Internal Med - H&P Results - Labs CBC & Chem 7: 10/07/18 15:28 10/07/18 15:28 Labs: Short CBC 10/07/18 Range/Units 15:28 WBC 9.4 (4.3-11.1) K/mcL Hgb 11.1 L (12.9-16.9) g/dL Hct 36.7 L (37.5-50.1) % Plt Count 251 (140-400) K/mcL Neutrophils # 7.2 (1.6-8.9) K/mcL BMP 10/07/18 15:28 Sodium 141 Potassium 4.2 Chloride 102 Carbon Dioxide 30 H BUN 19 Creatinine 0.98 Glucose 66 L Calcium 9.2 Cardiac Enzymes 10/07/18 Range/Units 15:28 Troponin I 0.30 H* (< 0.04) ng/mL - Impressions ITS Impressions Chest CT 10/07/18 16:19 IMPRESSION: 1. Large right pleural effusion of uncertain etiology, which appears at least partially loculated and results in compressive atelectasis of much of the right lung 2. Advanced pulmonary emphysema 3. Calcific coronary atherosclerosis 4. Left ventricular apical calcifications should be correlated with any history of myocardial infarction D/ / Jake Roldan MD / Jake Roldan MD Interpreting Provider: Jake Roldan MD - Assessment and plan (1) Pleural effusion on right Current Visit: Yes Status: Acute Assessment and plan: Large R pleural effusion noted on CT Will check INR Will hold Xarelto Consulting pulmonology and discussed with Dr. Cabrera. Continue oxygen supplement. CT chest CT/CT chest wo con IMPRESSION: 1. Large right pleural effusion of uncertain etiology, which appears at least partially loculated and results in compressive atelectasis of much of the right lung 2. Advanced pulmonary emphysema 3. Calcific coronary atherosclerosis 4. Left ventricular apical calcifications should be correlated with any history of myocardial infarction (2) Type II diabetes mellitus Current Visit: Yes Status: Acute Assessment and plan: Basal and SSI Qualifiers: Qualified Code(s): E11.9 - Type 2 diabetes mellitus without complications (3) Essential (primary) hypertension Current Visit: Yes Status: Acute Assessment and plan: Lopressor (4) Melena Current Visit: Yes Status: Acute Assessment and plan: Will check stool occult blood and if positive will consider GI consult. Checking CT abdomen and pelvis with IV and oral contrast. Will hold Xarelto and monitor H/H (5) Elevated troponin Current Visit: No Status: Acute Assessment and plan: Will cycle (6) Failure to thrive Current Visit: No Status: Chronic Assessment and plan: of unclear etiology. Pt reports unexplained weight loss. Will check CT abdomen and pelvis. Will check stool occult, if positive, will likely benefit from colonoscopy. Qualifiers: Failure to thrive age range: in adult Qualified Code(s): R62.7 - Adult failure to thrive (7) Hypoxia Current Visit: No Status: Acute Assessment and plan: Likey due to Large R pleural effusion. Will consult IR for possible thoracenthesis in am (8) Suspected CHF (congestive heart failure) Current Visit: No Status: Acute Assessment and plan: Pt states he is on Lasix (9) Tobacco abuse Current Visit: No Status: Acute Assessment and plan: Cessation advised (10) Chronic respiratory failure Current Visit: No Status: Chronic Assessment and plan: Pt states he is on 2 1/2 L NC as needed. Qualifiers: Respiratory failure complication: hypoxia Qualified Code(s): J96.11 - Chronic respiratory failure with hypoxia (11) COPD (chronic obstructive pulmonary disease) Current Visit: No Status: Chronic Assessment and plan: Pt with advanced emphysema that continues to smoke. Not in exacerbation. Duoneb PRN Qualifiers: COPD type: unspecified COPD Qualified Code(s): J44.9 - Chronic obstructive pulmonary disease, unspecified (12) AICD (automatic cardioverter/defibrillator) present Current Visit: Yes Status: Acute Assessment and plan: Pt also on Xarelto, likely due to afib. Pt is an overall poor historian. - Time Spent With Patient Total time spent is greater than 50% in coordination of care (as documented) at patient's floor/unit and/or counseling patient: 25 - 35 minutes
[2018-10-07] MEDS ORDERED: Isovue-370 500 ML BOTTLE IVP ONE (18:39)
[2018-10-07] MEDS ORDERED: Acetaminophen 325 MG TABLET PO PRN (18:43)
[2018-10-07] MEDS ORDERED: Naloxone 0.4 MG/ML INJ IVP PRN (18:43)
[2018-10-07] MEDS ORDERED: Ondansetron 4 MG/2 ML VIAL IVP PRN (18:43)
[2018-10-07] MEDS ORDERED: traMADol 50 MG TABLET PO PRN (18:49)
[2018-10-07] MEDS ORDERED: Dextrose Gel 15 GM/37.5 ML TUBE PO PRN ×2 (18:50)
[2018-10-07] MEDS ORDERED: D5% in Water 1,000 ML IVC PRN (18:50)
[2018-10-07] MEDS ORDERED: *HR* Dextrose 50 % in Water (Syg) 50 ML SYRINGE IVP PRN (18:50)
[2018-10-07] MEDS ORDERED: Ipratropium/Albuterol Neb 3 ML IH PRN (18:55)
[2018-10-07 19:26] LABS: INR 1.3; Prothrombin Time 14.5 Seconds (9.4-12.1)
[2018-10-07 19:46] LABS: Estimated Average Glucose 157 mg/dl; Hemoglobin A1C 7.1 %
[2018-10-07] MEDS ORDERED: Isovue-370 500 ML BOTTLE PO ONE (20:46)
[2018-10-07] MEDS ORDERED: Insulin DETEMIR 100 UNIT/ML X5UNITS SQ SCH (21:00)
[2018-10-07] MEDS: Gabapentin 400 MG CAPSULE PO SCH (21:39)
[2018-10-08 04:08] LABS: Hematocrit 32.7 % (37.5-50.1); Hemoglobin 10.1 g/dL (12.9-16.9); Mean Corpuscular HGB Conc 30.9 g/dL (31.6-35.5); Mean Corpuscular Hemoglobin 26.5 pg (28.0-33.3); Mean Corpuscular Volume 85.8 fL (83.0-100.0); Mean Platelet Volume 10.5 fL (9.4-12.4); Platelet Count 227 K/mcL (140-400); Red Blood Count 3.81 M/mcL (4.19-5.50); Red Cell Distribution Width 19.1 % (11.5-14.5)
[2018-10-08 04:30] LABS: BUN/Creatinine Ratio 18 (6-26); Blood Urea Nitrogen 19 mg/dL (8-23); Calcium 8.2 mg/dL (8.6-10.3); Carbon Dioxide 30 mEq/L (23-29); Chloride 100 mEq/L (98-107); Glucose 71 mg/dL (70-105); Osmolality,Calculated 283 (280-300); Potassium 4.4 mEq/L (3.5-5.1); Sodium 136 mEq/L (136-145); eGFR For Non-African Americans > 60 (> 60)
[2018-10-08] MEDS: Insulin LISPRO 300 UNITS/3 ML VIAL SQ SCH ×3 (07:48→17:13)
--- NOTE | 2018-10-08 09:03 | Pulmonology Consult Note ---
<Chase Gonzalez W - Last Filed: 10/08/18 14:21> Date of Encounter: 10/08/18 Medications and Allergies Calcium Carbonate/Vitamin D3 [Calcium 500-Vit D3 400 Tablet] 1 tab PO BID 09/19/15 [History] Ferrous Sulfate [Iron] 325 mg PO BID 09/19/15 [History] Linagliptin [Tradjenta] 5 mg PO DAILY 09/19/15 [History] Melatonin [Melatin] 3 mg PO HS 09/19/15 [History] Omeprazole [PriLOSEC] 20 mg PO DAILY 09/19/15 [History] Rivaroxaban [Xarelto] 20 mg PO DAILY 09/19/15 [History] Sertraline [Zoloft] 100 mg PO DAILY 09/19/15 [History] Finasteride [Proscar] 5 mg PO DAILY #30 tablet 11/05/15 [Rx] Atorvastatin [Lipitor] 40 mg PO HS 05/17/16 [History] Insulin ASPART [Novolog] 0 unit SQ TIDWM 05/17/16 [History] Ipratropium/Albuterol Neb [Duoneb] 3 ml IH Q6HR PRN 05/17/16 [History] Ondansetron HCl [Zofran] 4 mg PO BID PRN 05/17/16 [History] Oxygen 2 l NS HS 05/17/16 [History] Ranolazine [Ranexa] 500 mg PO BID 05/17/16 [History] Metoprolol XL (24 HR) Succ [Toprol Xl] 12.5 mg PO DAILY 10/05/16 [History] Amiodarone [Cordarone] 200 mg PO DAILY #30 tablet 11/11/16 [Rx] Furosemide [Lasix] 40 mg PO DAILY #30 tablet 11/11/16 [Rx] Lidocaine Patch [Lidoderm 5% patch] 1 each TP DAILY #30 adh..patch 11/11/16 [Rx] Fluticasone/Salmeterol [Advair Hfa 230-21 Mcg Inhaler] 2 puff IH BID 12/04/17 [History] Insulin Degludec [Tresiba Flextouch U-100] 42 unit SQ HS 12/04/17 [History] Loratadine [Claritin] 10 mg PO DAILY 12/04/17 [History] Roflumilast [Daliresp] 500 mcg PO DAILY 12/04/17 [History] Gabapentin [Neurontin] 800 mg PO TID #30 tablet 12/07/17 [Rx] GuaiFENesin/Dextromethorphan [Robitussin/Dm] 10 ml PO Q6HR PRN udc 12/07/17 [Rx] Donepezil [Aricept] 10 mg PO HS 07/14/18 [History] Potassium Chloride [Klor-Con 10] 10 meq PO BID 07/14/18 [History] Tramadol HCl [Ultram] 100 mg PO TID PRN 07/14/18 [History] Allergy/AdvReac Type Severity Reaction Status Date / Time amitriptyline Allergy Unknown unknown Verified 12/04/17 17:05 All Systems: The remainder of the systems were reviewed and are negative Physical Examination Vital Signs: Vital Signs, Last 4 Hours Temp Pulse Resp BP Pulse Ox 10/08/18 11:55 97.9 F 77 16 139/60 95 Results - Laboratory Findings CBC and BMP: 10/08/18 03:43 10/08/18 03:43 PT/INR, D-dimer PT 14.5 Seconds (9.4-12.1) H 10/07/18 15:28 Abnormal lab findings: Abnormal lab results RBC 3.81 M/mcL (4.19-5.50) L 10/08/18 03:43 Hgb 10.1 g/dL (12.9-16.9) L 10/08/18 03:43 Hct 32.7 % (37.5-50.1) L 10/08/18 03:43 MCH 26.5 pg (28.0-33.3) L 10/08/18 03:43 MCHC 30.9 g/dL (31.6-35.5) L 10/08/18 03:43 RDW 19.1 % (11.5-14.5) H 10/08/18 03:43 PT 14.5 Seconds (9.4-12.1) H 10/07/18 15:28 Carbon Dioxide 30 mEq/L (23-29) H 10/08/18 03:43 Hemoglobin A1c 7.1 % (-5.6) H 10/07/18 15:28 Calcium 8.2 mg/dL (8.6-10.3) L 10/08/18 03:43 Troponin I 0.30 ng/mL (< 0.04) H* 10/08/18 09:34 B-Natriuretic Peptide 371 pg/mL (Less than 100) H 10/07/18 15:28 - Clinical Findings Intake & Output: Intake & Output 10/07/18 10/08/18 10/08/18 23:59 07:59 15:59 Intake Total 237 / 237 0 / 0 120 / 120 Output Total 0 / 0 300 / 300 200 / 200 Balance 237 / 237 -300 / -300 -80 / -80 Weight 67.1 kg Consult Discharge Plan - Plan Referrals: Patt Shin LEATHER STITCHER [Primary Care Provider] - 10/14/18 10:00 am - Attending Attestation I examined this patient and my medical decision-making was reviewed with the Resident Physician. I agree with the documented findings, disposition and treatment plan as described except to the extent set forth below. We independently had [id number] contact with the patient Patient seen and examined at bedside Labs, radiology, chart personally reviewed. 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 He was prescribed Xarelto unclear when the last dose was today on the safe side and given patient's stability we will plan for diagnostic and therapeutic thoracentesis tomorrow morning. Mr Mistry, and his healthcare power of switchboard receptionist were updated at bedside all questions answered <Iván Cai - Last Filed: 10/08/18 15:02> Date of Encounter: 10/08/18 Time of Encounter: 08:56 Assessment and Plan (1) Pleural effusion on right Current Visit: Yes Status: Acute 82-year-old male with past medical history significant for CHF, COPD (emphysema), chronic respiratory failure, diabetes mellitus, atrial fibrillation, CAD status post NV status post AICD/pacemaker who presents with worsening shortness of breath for the past 10 days. - CXR with PCP: Right-sided pleural effusion - 2.5 L O2 via NC at home --> uses at night - 0.5 PPD smoker - BNP = 371 CT Chest (10/07/18): - Large right pleural effusion of uncertain etiology, which appears at least partially loculated and results in compressive atelectasis of much of the right lung - Advanced pulmonary emphysema Most recent Echocardiogram (12/15/17): - LVEF 35%. - Mildly dilated left ventricle. - Segmental left ventricular systolic dysfunction. - Mild left ventricular diastolic dysfunction. - Normal right ventricular structure and function. - Moderate pulmonary hypertension. - The pericardium appears normal. - A device lead was visualized in the right atrium and right ventricle. PLAN: Plan for thoracentesis tomorrow morning. Given elevated BNP, leg swelling, hx of CHF, pleural effusion likely secondary to CHF. However, per chart review, pt is on blood thinner. Pt does not recollect when his last dose of blood thinner was, and because of this, will be prudent to wait to perform thoracentesis until tomorrow morning. - NPO at midnight - PT/INR in the AM - Cont supplemental O2 as needed; titrate to keep O2 sat > 88% - Cont Duonebs PRN - Cont Lasix QD (2) Chronic respiratory failure Current Visit: Yes Status: Chronic Pt chronically on 2.5 L O2 via NC only at night, while at home - O2 sats appropriate currently; 2.5 L O2 via NC as needed PLAN: - Thoracentesis tomorrow morning - Plan as above Qualifiers: Respiratory failure complication: hypoxia Qualified Code(s): J96.11 - Chronic respiratory failure with hypoxia (3) COPD (chronic obstructive pulmonary disease) Current Visit: No Status: Chronic Pt is 0.5 PPD smoker; has advanced emphysema; no desire to quit smoking PFTs (06/29/17): - Spirometry shows very severe airway obstructive pattern - Following Bronchodilator, there is significant improvement in FVC by 38%. - Following Bronchodilator, there is improvement in FEV1 by 45%. - Lung Volumes FVC reduced relative to SVC suggesting air-trapping. - Diffusion Capacity: Patient unable to perform valid maneuver. - Flow Volume Loop: Obstructive PLAN: - Cont duonebs PRN - Symbicort BID - Supplemental O2 as needed Qualifiers: COPD type: unspecified COPD Qualified Code(s): J44.9 - Chronic obstructive pulmonary disease, unspecified (4) Tobacco abuse Current Visit: Yes Status: Acute 0.5 PPD smoker PLAN: - Encourage smoking cessation - Nicotine Patch PRN History of Present Illness Consult date: 10/08/18 Requesting physician: Migdalia Brizuela Reason for consult: pleural effusion Chief complaint: SOB History of present illness: 82-year-old male with past medical history significant for CHF, COPD (emphysema), chronic respiratory failure, diabetes mellitus, atrial fibrillation, CAD status post NV status post AICD/pacemaker who presents with worsening shortness of breath for the past 10 days. Patient was sent in by PCP after chest x-ray indicated fluid in the lungs. SOB has been progressively worsening. Patient states that he is on 2.5 L oxygen via nasal cannula at home to be used when needed. States he tends to only use it when sleeping. Otherwise stable on room air. He is a half-pack per day smoker. Also has noted increasing lower extremity edema. States he is unable lay on his back when sleeping so instead lays on his side. Patient initially noted to be hemodynamically stable in the ED and presentation. O2 sats appropriate on 2.5 liters oxygen via nasal cannula. Patient remained afebrile without leukocytosis. Of note, BNP = 371 and troponin 3 = 0.30. CT chest indicated large right pleural effusion resulting in compressive atelectasis of much of right lung, along with advanced pulmonary emphysema. Pulmonary consulted due to right-sided pleural effusion. Pt seen and examined a t bedside resting comfortably eating breakfast. Currently not on any oxygen, and breathing without difficulty. Denies any current complaints. Denies fevers/chills, headache, chest pain, palpitations, SOB, wheezing, abdominal pain, n/v/d, fatigue, weakness. CT Chest (10/07/18): - Large right pleural effusion of uncertain etiology, which appears at least partially loculated and results in compressive atelectasis of much of the right lung - Advanced pulmonary emphysema - Calcific coronary atherosclerosis - Left ventricular apical calcifications should be correlated with any history of myocardial infarction Past Med Surg Social Fam HX - Past Medical History Attestation: Yes The following information was validated with the patient. Source: patient, old records reviewed Medical history: atrial fibrillation, CHF, COPD, coronary artery disease, DVT, diabetes, GERD, hyperlipidemia, hypertension, myocardial infarction Additional medical history: Pneumothorax with rib fx, anemia Psychiatric history: depression - Past Surgical History Surgical History: angioplasty/stent, orthopedic, other, pacemaker/AICD Additional surgical history: chest tube, AICD, prostatecomy, g tube placement, trach, gastric polyp resected, ulcer surgery, hernia sx x 3, T&A, foot surgery x 2 - Social History Smoking Status: Current every day smoker Smokeless Tobacco Status: No Alcohol use: none Drug use: none - Family History Mother Hx Family Endocrine Disorder: Yes (DM) Father Family Member Ethnicity: Non- Hx Family Cardiac Disorders: Yes Hx Family Respiratory Disorders: Yes Hx Family Cancer: No Hx Family GI Disorders: No Hx Family Endocrine Disorder: Yes Hx Family Neuromuscular Disorders: No Hx Family Neurologic Disorders: No Hx Family HEENT Disorders: No Hx Family Autoimmune Disorders: No All Systems: The remainder of the systems were reviewed and are negative - Constitutional Constitutional: no anorexia, no chills, no fatigue, no fever(s), no headache(s), no weakness - EENT Eyes: no loss of vision Ears: decreased hearing Nose, mouth and throat: nasal congestion, nasal discharge, no dizziness, no dry mouth, no headache(s), no sinus pressure - Cardiovascular Cardiovascular: no chest pain, no chest pain at rest, no dyspnea, no dyspnea on exertion, no edema - Respiratory Respiratory: no cough, no dyspnea, no chest congestion - Gastrointestinal Gastrointestinal: no abdominal pain, no diarrhea, no nausea, no vomiting - Genitourinary Genitourinary: no dysuria - Musculoskeletal Musculoskeletal: no weakness, no back pain - Neurological Neurological: no confusion, no dizziness, no headache(s), no weakness Physical Examination Vital Signs: Vital Signs, Last 4 Hours Temp Pulse Resp BP Pulse Ox 10/08/18 07:39 97.8 F 62 17 103/58 92 10/08/18 05:25 98 F 62 17 131/70 94 General appearance: no acute distress, alert Eyes: nonicteric ENT: oropharynx moist Neck: supple Effort: normal Auscultation: left: wheezes (Faint wheezes in left lung field; no rales, crackles, rhonchi), right: diminished breath sounds (Decreased breath sounds in right lung field) Cardiovascular: regular rate and rhythm Gastrointestinal: normoactive bowel sounds, soft, non-tender, non-distended Extremities: no cyanosis, no edema, no clubbing normal mental status, non-focal exam, pupils equal and round, CN II-XII normal mood appropriate, affect normal Results - Laboratory Findings CBC and BMP: 10/08/18 03:43 10/08/18 03:43 PT/INR, D-dimer PT 14.5 Seconds (9.4-12.1) H 10/07/18 15:28 Abnormal lab findings: Abnormal lab results RBC 3.81 M/mcL (4.19-5.50) L 10/08/18 03:43 Hgb 10.1 g/dL (12.9-16.9) L 10/08/18 03:43 Hct 32.7 % (37.5-50.1) L 10/08/18 03:43 MCH 26.5 pg (28.0-33.3) L 10/08/18 03:43 MCHC 30.9 g/dL (31.6-35.5) L 10/08/18 03:43 RDW 19.1 % (11.5-14.5) H 10/08/18 03:43 PT 14.5 Seconds (9.4-12.1) H 10/07/18 15:28 Carbon Dioxide 30 mEq/L (23-29) H 10/08/18 03:43 Hemoglobin A1c 7.1 % (-5.6) H 10/07/18 15:28 Calcium 8.2 mg/dL (8.6-10.3) L 10/08/18 03:43 Troponin I 0.31 ng/mL (< 0.04) H* 10/08/18 03:43 B-Natriuretic Peptide 371 pg/mL (Less than 100) H 10/07/18 15:28 - Clinical Findings Intake & Output: Intake & Output 10/07/18 10/08/18 10/08/18 23:59 07:59 15:59 Intake Total 237 / 237 0 / 0 Output Total 0 / 0 300 / 300 Balance 237 / 237 -300 / -300 Weight 67.1 kg
[2018-10-08] MEDS: Gabapentin 400 MG CAPSULE PO SCH ×3 (09:19→20:59)
[2018-10-08] MEDS: *HR* Amiodarone 200 MG TABLET PO SCH (09:20)
[2018-10-08] MEDS: Furosemide 40 MG TABLET PO SCH (09:20)
[2018-10-08] MEDS: Finasteride 5 MG TABLET PO SCH (09:20)
--- NOTE | 2018-10-08 13:41 | Internal Med Progress Note ---
Hospitalist Progress Note - Encounter Date of Encounter: 10/08/18 Time of Encounter: 13:39 - Subjective Interval History: Patient seen and examined at bedside. Patient states that he feels short of breath when lying flat. This is improved when he sits up. He denies any cough, fever, chills, chest pain. - Exam Vitals: Temp Pulse Resp BP Pulse Ox 97.9 F 77 16 139/60 95 10/08/18 11:55 10/08/18 11:55 10/08/18 11:55 10/08/18 11:55 10/08/18 11:55 Exam: Gen.: Alert and oriented 3, no acute distress Heart: Regular rate and rhythm, no murmurs, rubs, gallops Lungs: Severely diminished on right, otherwise clear, no rales, rhonchi, wheezes noted Abdomen: Soft, nontender, nondistended. Normoactive bowel sounds. - Assessment and Plan (1) Pleural effusion on right Current Visit: Yes Status: Acute Assessment and Plan: CT scan personally reviewed and reveals large right-sided pleural effusion. Etiology is unclear at this time,possible transitive in the setting of heart failure however given his smoking history underlying malignancy is also concern. Pulmonology has been consulted, discussed with chain forming machine operator who plan for thoracentesis in the morning for fluid analysis. (2) COPD (chronic obstructive pulmonary disease) Current Visit: No Status: Chronic Assessment and Plan: Stable. No evidence of exacerbation. Shortness of breath due to pleural e ffusion as above. Continue when necessary bronchodilators (3) Chronic respiratory failure Current Visit: Yes Status: Chronic Assessment and Plan: Patient currently on his home oxygen dose of 2.5 L/m and maintaining oxygen saturation greater than 90%. Continue supplemental oxygen (4) Elevated troponin Current Visit: No Status: Acute Assessment and Plan: Troponin elevated but adynamic staying right around .30. Chest pain-free at this time. EKG unremarkable. Doubt ACS but will obtain echocardiogram which will also give information regarding the patient's pleural effusion.. (5) Tobacco abuse Current Visit: Yes Status: Acute Assessment and Plan: Encouraged cessation (6) Type II diabetes mellitus Current Visit: Yes Status: Acute Assessment and Plan: Patient has history of type 2 diabetes on insulin at home however he is noted to be hypoglycemic this morning. Hemoglobin A1c 7.1. We will hold long-acting insulin given his hypoglycemic episode this morning. Continue close monitor blood sugars and adjust insulin regimen as necessary. Continue sliding scale insulin. (7) Essential (primary) hypertension Current Visit: Yes Status: Acute Assessment and Plan: Blood pressure stable. Continue home medications. (8) Melena Current Visit: Yes Status: Acute Assessment and Plan: Hemoglobin stable. Hemoccult stool negative. No evidence of active GI bleed. (9) Afib Current Visit: No Status: Chronic Assessment and Plan: Rate controlled. On Xarelto for anticoagulation, this is been held in anticipation of thoracentesis tomorrow. We will restart after procedure. - Time Spent with Patient Total time spent is greater than 50% in coordination of care (as documented) at patient's floor/unit and/or counseling patient: Internal Medicine: Result - Labs CBC & Chem 7: 10/08/18 03:43 10/08/18 03:43 Labs: Short CBC 10/07/18 10/08/18 Range/Units 15:28 03:43 WBC 9.4 8.7 (4.3-11.1) K/mcL Hgb 11.1 L 10.1 L (12.9-16.9) g/dL Hct 36.7 L 32.7 L (37.5-50.1) % Plt Count 251 227 (140-400) K/mcL Neutrophils # 7.2 (1.6-8.9) K/mcL BMP 10/07/18 10/08/18 15:28 03:43 Sodium 141 136 Potassium 4.2 4.4 Chloride 102 100 Carbon Dioxide 30 H 30 H BUN 19 19 Creatinine 0.98 1.03 Glucose 66 L 71 Calcium 9.2 8.2 L Cardiac Enzymes 10/07/18 10/07/18 10/08/18 Range/Units 15:28 21:16 03:43 Troponin I 0.30 H* 0.30 H* 0.31 H* (< 0.04) ng/mL 10/08/18 Range/Units 09:34 Troponin I 0.30 H* (< 0.04) ng/mL - ABG Interpretation ABG results: PT/INR, D-dimer PT 14.5 Seconds (9.4-12.1) H 10/07/18 15:28 - Impressions Impressions Chest CT 10/07/18 16:19 IMPRESSION: 1. Large right pleural effusion of uncertain etiology, which appears at least partially loculated and results in compressive atelectasis of much of the right lung 2. Advanced pulmonary emphysema 3. Calcific coronary atherosclerosis 4. Left ventricular apical calcifications should be correlated with any history of myocardial infarction D/ / Jake Roldan MD / Jake Roldan MD Interpreting Provider: Jake Roldan MD Abdomen/Pelvis CT 10/07/18 20:15 IMPRESSION: No abnormality identified to explain the patient's melena. Large right pleural effusion, with near complete collapse of the visualized right lower lung. Small amount of perihepatic ascites. D/ / Cayetano Daniels MD / Cayetano Daniels MD Interpreting Provider: Cayetano Daniels MD - VTE Reasons for not Prescribing Prophylaxis: Not indicated-Anticoagulated or INR therapeutic Consult Discharge Plan - Plan Referrals: Patt Shin CNP [Primary Care Provider] - 10/14/18 10:00 am (2) COPD (chronic obstructive pulmonary disease) Qualifiers: COPD type: unspecified COPD Qualified Code(s): J44.9 - Chronic obstructive pulmonary disease, unspecified (3) Chronic respiratory failure Qualifiers: Respiratory failure complication: hypoxia Qualified Code(s): J96.11 - Chronic respiratory failure with hypoxia (6) Type II diabetes mellitus Qualifiers: Diabetes mellitus ferry terminal agent insulin use: with ferry terminal agent use Diabetes mellitus complication status: with hypoglycemia Diabetes mellitus complication detail: without coma Qualified Code(s): E11.649 - Type 2 diabetes mellitus with hypoglycemia without coma; Z79.4 - senior care (current) use of insulin (9) Afib Qualifiers: Atrial fibrillation type: chronic Qualified Code(s): I48.2 - Chronic atrial fibrillation
[2018-10-08] MEDS ORDERED: Perflutren Lipid Microsphere 1.3 ML in 0.9 % Sodium Chloride 8.7 ML IVP ONE (23:04)
[2018-10-09] MEDS: traMADol 50 MG TABLET PO PRN (02:25)
[2018-10-09 04:25] LABS: Hematocrit 35.9 % (37.5-50.1); Hemoglobin 10.9 g/dL (12.9-16.9); Mean Corpuscular HGB Conc 30.4 g/dL (31.6-35.5); Mean Corpuscular Hemoglobin 26.5 pg (28.0-33.3); Mean Corpuscular Volume 87.3 fL (83.0-100.0); Mean Platelet Volume 11.2 fL (9.4-12.4); Platelet Count 234 K/mcL (140-400); Red Blood Count 4.11 M/mcL (4.19-5.50); Red Cell Distribution Width 18.9 % (11.5-14.5)
[2018-10-09] MEDS ORDERED: Melatonin 3 MG TABLET PO ONE (04:51)
[2018-10-09 04:56] LABS: BUN/Creatinine Ratio 23 (6-26); Blood Urea Nitrogen 19 mg/dL (8-23); Calcium 8.2 mg/dL (8.6-10.3); Carbon Dioxide 33 mEq/L (23-29); Chloride 97 mEq/L (98-107); Glucose 197 mg/dL (70-105); Osmolality,Calculated 288 (280-300); Potassium 4.1 mEq/L (3.5-5.1); Sodium 135 mEq/L (136-145); eGFR For Non-African Americans > 60 (> 60)
--- NOTE | 2018-10-09 08:07 | Procedure Note ---
Date of procedure: 10/09/18 Pre-op diagnosis: Pleural Effusion Post-op diagnosis: same Procedure: A time-out was completed verifying correct patient, procedure, site, positioning, and special equipment if applicable. The patients right/ side was prepped and draped in a sterile manner after the appropriate infiltration level was confirmed by ultrasound. 1% lidocaine was used anesthetize the surrounding skin. A finder needle was then used to locate fluid and clear yellow fluid was obtained. A 10-blade scalpel used to make the incision. The thoracentesis catheter was then threaded without difficulty. The patient had 800cc> of dark yellow fluid removed. A post-procedure chest x-ray was ordered and the fluid will be sent for several studies. No immediate complications Was there an visual merchandising assistant present: No Estimated blood loss (cc): 0 Specimen: path Pathology: other Disposition: no change
--- NOTE | 2018-10-09 08:22 | Internal Med Progress Note ---
Hospitalist Progress Note - Encounter Date of Encounter: 10/09/18 Time of Encounter: 08:19 - Subjective Interval History: Patient seen and examined at bedside. Patient states that his breathing is improved this morning. He no longer feels significantly short of breath. He denies chest pain, fever, chills. - Exam Vitals: Temp Pulse Resp BP Pulse Ox 98.2 F 60 20 115/63 95 10/09/18 07:06 10/09/18 07:06 10/09/18 07:06 10/09/18 07:06 10/09/18 07:06 Exam: Gen.: Alert and oriented 3, no acute distress Heart: Regular rate and rhythm, no murmurs, rubs, gallops Lungs: Slightly diminished on right, improved from yesterday, otherwise clear, no rales, rhonchi, wheezes noted Abdomen: Soft, nontender, nondistended. Normoactive bowel sounds. - Assessment and Plan (1) Pleural effusion on right Current Visit: Yes Status: Acute Assessment and Plan: Pulmonology following and performed thoracentesis this morning. Fluid sent to lab for analysis including cell count and differential, Gram stain and culture, cytology. Patient appears symptomatically improved. Await thoracentesis lab results. (2) COPD (chronic obstructive pulmonary disease) Current Visit: No Status: Chronic Assessment and Plan: Stable. No evidence of exacerbation. Shortness of breath improved today. Continue as needed bronchodilators (3) Chronic respiratory failure Current Visit: Yes Status: Chronic Assessment and Plan: Stable. Continue supplemental oxygen (4) Elevated troponin Current Visit: No Status: Acute Assessment and Plan: Troponin elevated but adynamic staying right around .30. Patient denies chest pain. EKG unremarkable. Echocardiogram pending (5) Tobacco abuse Current Visit: Yes Status: Acute Assessment and Plan: Encouraged cessation (6) Type II diabetes mellitus Current Visit: Yes Status: Acute Assessment and Plan: Hypoglycemia has resolved and blood sugars now in the high 100s. Hemoglobin A1c 7.1. We will restart his long-acting insulin at bedtime at a low dose and titr ate up as necessary to avoid hypoglycemia. Continue sliding scale insulin for mealtime coverage. (7) Essential (primary) hypertension Current Visit: Yes Status: Acute Assessment and Plan: Stable. Continue home medications. (8) Afib Current Visit: No Status: Chronic Assessment and Plan: Rate controlled. On Xarelto for anticoagulation, this is been held in anticipation of thoracentesis this morning. We will restart this evening after procedure. - Time Spent with Patient Total time spent is greater than 50% in coordination of care (as documented) at patient's floor/unit and/or counseling patient: Internal Medicine: Result - Labs CBC & Chem 7: 10/09/18 03:19 10/09/18 03:19 Labs: Short CBC 10/09/18 Range/Units 03:19 WBC 8.8 (4.3-11.1) K/mcL Hgb 10.9 L (12.9-16.9) g/dL Hct 35.9 L (37.5-50.1) % Plt Count 234 (140-400) K/mcL BMP 10/09/18 03:19 Sodium 135 L Potassium 4.1 Chloride 97 L Carbon Dioxide 33 H BUN 19 Creatinine 0.82 Glucose 197 H Calcium 8.2 L Cardiac Enzymes 10/08/18 Range/Units 09:34 Troponin I 0.30 H* (< 0.04) ng/mL - ABG Interpretation ABG results: PT/INR, D-dimer PT 14.5 Seconds (9.4-12.1) H 10/07/18 15:28 - VTE Reasons for not Prescribing Prophylaxis: Not indicated-Anticoagulated or INR therapeutic Consult Discharge Plan - Plan Referrals: Patt Shin CNP [Primary Care Provider] - 10/14/18 10:00 am (2) COPD (chronic obstructive pulmonary disease) Qualifiers: COPD type: unspecified COPD Qualified Code(s): J44.9 - Chronic obstructive pulmonary disease, unspecified (3) Chronic respiratory failure Qualifiers: Respiratory failure complication: hypoxia Qualified Code(s): J96.11 - Chronic respiratory failure with hypoxia (6) Type II diabetes mellitus Qualifiers: Diabetes mellitus terminal operations manager insulin use: with senior care use Diabetes mellitus complication status: with hyperglycemia Qualified Code(s): E11.65 - Type 2 diabetes mellitus with hyperglycemia; Z79.4 - pen[facility]entiary (current) use of insulin (8) Afib Qualifiers: Atrial fibrillation type: chronic Qualified Code(s): I48.2 - Chronic atrial fibrillation
[2018-10-09 08:31] LABS: RBC,Pleural Fluid 0.003 M/mcL
[2018-10-09 08:32] LABS: Appearance of Pleural Fl Hazy (Clear)
[2018-10-09 09:05] LABS: Total Protein,Pleural Fluid 4.4 g/dL (No Ref Range)
[2018-10-09 09:06] LABS: Alanine Aminotransferase 10 Units/L (7-52); Albumin 3.2 g/dL (3.5-5.7); Albumin/Globulin Ratio 0.8 (1.1-2.2); Alkaline Phosphatase 76 Units/L (34-104); Aspartate Amino Transferase 23 Units/L (13-39); Bilirubin,Indirect 0.3 mg/dL (0.0-1.2); Bilirubin,Total 0.3 mg/dL (0.3-1.0); Globulin 3.9 g/dL (2.4-3.5); Lactate Dehydrogenase 364 Units/L (140-271); Total Protein 7.1 g/dL (6.4-8.9)
[2018-10-09] MEDS: Furosemide 40 MG TABLET PO SCH (09:37)
[2018-10-09] MEDS: Insulin LISPRO 300 UNITS/3 ML VIAL SQ SCH ×3 (09:38→16:52)
[2018-10-09] MEDS: Finasteride 5 MG TABLET PO SCH (09:38)
[2018-10-09] MEDS: *HR* Amiodarone 200 MG TABLET PO SCH (09:38)
[2018-10-09] MEDS: Gabapentin 400 MG CAPSULE PO SCH ×3 (09:38→20:35)
--- NOTE | 2018-10-09 13:04 | Electrocardiograph Report ---
[address] [address] Test Date: 2018-10-07 Pat Name: Tom Mistry Department: [id number] Room: 2A24 Gender: M [employer] Judge: : [id number] Requested By: Victor Hugo Diaz Order Number: [id number] Reading MD: Sofi Oliveros Measurements Intervals [place] Rate: 72 P: 236 MA: 174 QRS: 248 QRSD: 165 T: 4 QT: 451 QTc: 475 Interpretive Statements ELECTRONIC ATRIAL PACEMAKER ELECTRONIC VENTRICULAR PACEMAKER ABNORMAL RHYTHM ECG Electronically Signed On 10-09-2018 13:03:00 EST by Sofi Oliveros
[2018-10-10] MEDS: traMADol 50 MG TABLET PO PRN ×3 (02:43→23:27)
[2018-10-10 05:48] LABS: Hematocrit 36.9 % (37.5-50.1); Hemoglobin 11.1 g/dL (12.9-16.9); Mean Corpuscular HGB Conc 30.1 g/dL (31.6-35.5); Mean Corpuscular Volume 86.4 fL (83.0-100.0); Mean Platelet Volume 10.6 fL (9.4-12.4); Platelet Count 245 K/mcL (140-400); Red Blood Count 4.27 M/mcL (4.19-5.50)
[2018-10-10 06:07] LABS: BUN/Creatinine Ratio 16 (6-26); Blood Urea Nitrogen 16 mg/dL (8-23); Calcium 8.8 mg/dL (8.6-10.3); Carbon Dioxide 33 mEq/L (23-29); Chloride 101 mEq/L (98-107); Glucose 174 mg/dL (70-105); Osmolality,Calculated 291 (280-300); Potassium 3.8 mEq/L (3.5-5.1); Sodium 138 mEq/L (136-145); eGFR For Non-African Americans > 60 (> 60)
[2018-10-10] MEDS ORDERED: Acetaminophen IV 500 MG/50 ML INFUS..BTL IVPB ONE (06:12)
[2018-10-10] MEDS: Insulin LISPRO 300 UNITS/3 ML VIAL SQ SCH ×3 (07:47→16:48)
[2018-10-10] MEDS: Furosemide 40 MG TABLET PO SCH (07:48)
[2018-10-10] MEDS: Gabapentin 400 MG CAPSULE PO SCH ×3 (07:48→20:24)
[2018-10-10] MEDS: *HR* Amiodarone 200 MG TABLET PO SCH (07:48)
[2018-10-10] MEDS: Finasteride 5 MG TABLET PO SCH (07:48)
[2018-10-10] MEDS ORDERED: *HR* Rivaroxaban 10 MG TABLET PO SCH (09:00)
[2018-10-10] MEDS ORDERED: Albuterol 2.5 MG/3 ML NEBULIZER IH PRN (11:22)
[2018-10-10] MEDS ORDERED: Acetaminophen 325 MG TABLET PO PRN (12:12)
[2018-10-10] MEDS: Spironolactone 25 MG TABLET PO SCH (12:15)
[2018-10-10] MEDS: Budesonide Neb 0.5 MG/2 ML IH SCH ×2 (12:24→22:11)
--- NOTE | 2018-10-10 15:10 | Internal Med Progress Note ---
Hospitalist Progress Note - Encounter Date of Encounter: 10/10/18 Time of Encounter: 15:05 - Subjective Interval History: pt wanst to leave the hospital - Exam Vitals: Temp Pulse Resp BP Pulse Ox 97.9 F 58 20 112/60 92 10/10/18 10:39 10/10/18 10:39 10/10/18 10:39 10/10/18 10:39 10/10/18 10:39 Exam: Gen.: Alert and oriented 3, no acute distress Heart: Regular rate and rhythm, no murmurs, rubs, gallops Lungs: Slightly diminished on right, improved from yesterday, otherwise clear, no rales, rhonchi, wheezes noted Abdomen: Soft, nontender, nondistended. Normoactive bowel sounds. - Summary of Assessment and Plan Summary of Assessment and Plan: (1) Pleural effusion on right Current Visit: Yes Status: Acute Assessment and Plan: s/p thoracenteiss await furthe rreuslts pt is breahin better (2) COPD (chronic obstructive pulmonary disease) Current Visit: No Status: Chronic Assessment and Plan: Stable. No evidence of exacerbation. Shortness of breath due to pleural effusion as above. Continue when necessary bronchodilators Pt will need further steorid (3) Chronic respiratory failure Current Visit: Yes Status: Chronic Assessment and Plan: Patient currently on his home oxygen dose of 2.5 L/m and maintaining oxygen saturation greater than 90%. Continue supplemental oxygen (4) Elevated troponin Current Visit: No Status: Acute Assessment and Plan: will stress the pt in the AM, pt has EF 25% (5) Tobacco abuse Current Visit: Yes Status: Acute Assessment and Plan: Encouraged cessation (6) Type II diabetes mellitus Current Visit: Yes Status: Acute Assessment and Plan: Patient has history of type 2 diabetes on insulin at home however he is noted to be hypoglycemic this morning. Hemoglobin A1c 7.1. We will hold long-acting insulin given his hypoglycemic episode this morning. Continue close monitor blood sugars and adjust insulin regimen as necessary. Continue sliding scale insulin. (7) Essential (primary) hypertension Current Visit: Yes Status: Acute Assessment and Plan: Blood pressure stable. Continue home medications. (8) Melena Current Visit: Yes Status: Acute Assessment and Plan: Hemoglobin stable. Hemoccult stool negative. No evidence of active GI bleed. (9) Afib Current Visit: No Status: Chronic Assessment and Plan: Rate controlled. On Xarelto for anticoagulation, this is been held in anticipation of thoracentesis tomorrow. We will restart after procedure. 10) EF of 25%: will stress in the AM Pt is wanting to leave AMA, I will reach out to cardiology team. Time: 35min - Time Spent with Patient Total time spent is greater than 50% in coordination of care (as documented) at patient's floor/unit and/or counseling patient: Internal Medicine: Result - Labs CBC & Chem 7: 10/10/18 05:21 10/10/18 05:21 Labs: Short CBC 10/10/18 Range/Units 05:21 WBC 10.5 (4.3-11.1) K/mcL Hgb 11.1 L (12.9-16.9) g/dL Hct 36.9 L (37.5-50.1) % Plt Count 245 (140-400) K/mcL BMP 10/10/18 05:21 Sodium 138 Potassium 3.8 Chloride 101 Carbon Dioxide 33 H BUN 16 Creatinine 0.97 Glucose 174 H Calcium 8.8 - ABG Interpretation ABG results: PT/INR, D-dimer PT 14.5 Seconds (9.4-12.1) H 10/07/18 15:28 - VTE Reasons for not Prescribing Prophylaxis: Not indicated-Anticoagulated or INR therapeutic Consult Discharge Plan - Plan Referrals: Patt Shin CNP [Primary Care Provider] - 10/14/18 10:00 am
[2018-10-11] MEDS: Insulin LISPRO 300 UNITS/3 ML VIAL SQ SCH ×3 (08:03→17:04)
[2018-10-11] MEDS ORDERED: Albuterol 2.5 MG/3 ML NEBULIZER IH PRN (09:38)
--- NOTE | 2018-10-11 10:03 | Cardiology Consult Note ---
<Hanna Helms - Last Filed: 10/11/18 10:22> Date of Encounter: 10/11/18 Time of Encounter: 09:30 Assessment and Plan (1) Elevated troponin Current Visit: No Status: Acute Troponin flat, adynamic in the setting of hypoxia and compressive right pleural effusion. Presentation is not consistent with ACS. ECG shows paced rhythm. Noted to have chronic troponin elevation. Hx of known severe CAD with known occluded LAD and pRCA, known LVEF ~25% s/p AICD. Patient declines further testing "unless life or ." Will cancel stress test today as he denies any chest pain/discomfort. Recommend conservative medical therapy. Continue asa, statin. Change metoprolol to Toprol XL given CHF. No further inpatient testing recommended, recommend close outpatient follow-up with Cardiology. Recommend SW consult to determine if C services vs. ECF appropriate upon discharge. (2) Ischemic cardiomyopathy Current Visit: Yes Status: Acute As above. Describes NYHA class III-IV symptoms. Poor prognosis. Clinically appears euvolemic upon exam. CHF teaching reinforced including Na/fluid restricted diet. Hx of AICD, does not appear to follow with device clinic, will plan to interrogate today. Change metoprolol to Toprol XL, continue asa, statin, and ACEi. Change lasix to po upon discharge. Reinforced the importance of medication compliance. (3) Atrial fibrillation Current Visit: No Status: Chronic Hx of PAF, managed on amiodarone as outpatient. On Xarelto for AC--plan to be resumed s/p procedures as inpt. Qualifiers: Atrial fibrillation type: unspecified Qualified Code(s): I48.91 - Unspecified atrial fibrillation (4) Pleural effusion Current Visit: Yes Status: Acute CXR as outpatient demonstrated new right pleural effusion with overlying compressive atelectasis. s/p right sided thoracentesis. Cont mgmt per Pulm, primary service. Discussion w patient/family: The assessment and plan as outlined above was discussed with the patient and/or family members who expressed understanding and agreement. All questions were answered. Thank you for involving us in the care of your patient. Please call with any questions. The patient will be discussed and reviewed with Dr. Turner; changes to be made accordingly. History of Present Illness Consult date: 10/11/18 Requesting physician: Angel Gomez Consult reason: Elevated troponin Chief complaint: Right leg swelling History of present illness: Mr. Mistry is a 82 year old male with complex PMHx significant of ICMP with chronically reduced LVEF s/p ICD, DMII, AF, HLD, HTN, and COPD who presented to the ED after outpatient abnormal CXR. Please note patient is a poor historian, questionable history of dementia as there is significant medication non- adherence. He reports he fell two weeks ago and twisted his right ankle, he then saw his PCP who was concerned for CHF, CXR obtained and demosntrated new right pleural effusion with overlying compressive atelectasis. Upon exam today, he denies any dyspnea or orthopnea. It is unclear if patient is taking his medications as prescribed. He is forgetful upon exam. Underwent right thoracentesis this admission. Cardiology consulted today for noted chronic troponin elevation. Upon exam, he denies any chest pain or discomfort, denies angina. He has missed several outpatient appointments with Cardiology. He declines any further cardiac testing unless "life or " given his advanced age. He denies any recent ICD shocks. Per review of medical records, hx of PCI to LCx and known chronically occluded LAD and pRCA with collaterals. Prior CV testing: TTE 12/2014: LVEF 35% Past Med Surg Social Fam HX - Past Medical History Attestation: Yes The following information was validated with the patient. Source: patient Medical history: atrial fibrillation, CHF, COPD, coronary artery disease, DVT, diabetes, GERD, hyperlipidemia, hypertension, myocardial infarction Additional medical history: Pneumothorax with rib fx, anemia Psychiatric history: depression - Past Surgical History Surgical History: angioplasty/stent, orthopedic, other, pacemaker/AICD Additional surgical history: chest tube, AICD, prostatecomy, g tube placement, trach, gastric polyp resected, ulcer surgery, hernia sx x 3, T&A, foot surgery x 2 - Social History Smoking Status: Current every day smoker Smokeless Tobacco Status: No Alcohol use: none Drug use: none - Family History Father Family Member Ethnicity: Non- Hx Family Cardiac Disorders: Yes Hx Family Respiratory Disorders: Yes Hx Family Cancer: No Hx Family GI Disorders: No Hx Family Endocrine Disorder: Yes Hx Family Neuromuscular Disorders: No Hx Family Neurologic Disorders: No Hx Family HEENT Disorders: No Hx Family Autoimmune Disorders: No Mother Hx Family Endocrine Disorder: Yes (DM) Medications and Allergies RX: Ferrous Sulfate [Iron] 325 mg PO BID 09/19/15 [History] RX: Linagliptin [Tradjenta] 5 mg PO DAILY 09/19/15 [History] RX: Omeprazole [PriLOSEC] 20 mg PO DAILY 09/19/15 [History] RX: Rivaroxaban [Xarelto] 20 mg PO DAILY 09/19/15 [History] RX: Sertraline [Zoloft] 100 mg PO DAILY 09/19/15 [History] RX: Finasteride [Proscar] 5 mg PO DAILY #30 tablet 11/05/15 [Rx] RX: Atorvastatin [Lipitor] 40 mg PO HS 05/17/16 [History] RX: Insulin ASPART [Novolog] 0 unit SQ TIDWM 05/17/16 [History] RX: Oxygen 2 l NS HS 05/17/16 [History] RX: Ranolazine [Ranexa] 500 mg PO BID 05/17/16 [History] RX: Amiodarone [Cordarone] 200 mg PO DAILY #30 tablet 11/11/16 [Rx] RX: Furosemide [Lasix] 40 mg PO DAILY #30 tablet 11/11/16 [Rx] RX: Fluticasone/Salmeterol [Advair Hfa 230-21 Mcg Inhaler] 2 puff IH BID 12/04/17 [History] RX: Loratadine [Claritin] 10 mg PO DAILY 12/04/17 [History] RX: Roflumilast [Daliresp] 500 mcg PO DAILY 12/04/17 [History] RX: Gabapentin [Neurontin] 800 mg PO TID #30 tablet 12/07/17 [Rx] RX: Donepezil [Aricept] 10 mg PO HS 07/14/18 [History] RX: Potassium Chloride [Klor-Con 10] 10 meq PO BID 07/14/18 [History] RX: Tramadol HCl [Ultram] 50 mg PO TID PRN 07/14/18 [History] Calcium Carbonate/Vitamin D3 [Calcium 500 + Vit D Caplet] 1 tab PO BID 10/08/18 [History] Insulin Glargine,Hum.rec.anlog [Basaglar Kwikpen U-100] 42 unit SQ HS 10/08/18 [History] Lactose-Reduced Food [Ensure Liquid] 1 bottle PO TID 10/08/18 [History] Melatonin [Melatin] 3 mg PO HS 10/08/18 [History] Umeclidinium [place] [Incruse Ellipta] 62.5 mcg IH DAILY 10/08/18 [History] Allergy/AdvReac Type Severity Reaction Status Date / Time amitriptyline Allergy Unknown unknown Verified 12/04/17 17:05 All Systems Review: The remainder of the systems were reviewed and are negative - Cardiovascular Cardiovascular: as per HPI Physical Examination Vital Signs, Last 4 Hours Temp Pulse Resp BP Pulse Ox 10/11/18 06:39 97.6 F 68 20 97/53 91 Results 10/10/18 05:21 10/10/18 05:21 Lab Results 10/10/18 05:21 B-Natriuretic Peptide 416 H Consult Discharge Plan - Plan Referrals: Patt Shin CNP [Primary Care Provider] - 10/14/18 10:00 am <Jon Turner - Last Filed: 10/11/18 19:23> Date of Encounter: 10/11/18 - Attending Attestation I have personally performed a face to face evaluation on this patient. I have reviewed and agree with the care plan. History and Exam by me shows: 82-year-old male with multiple cardiac risk factors recent fall, poor historian possibly secondary to dementia presents after an abnormal chest x-ray known to be noncompliant with medications currently status post thoracentesis this hospital admission has mild non-ischemic cardiac markers on appropriate medications declines any further cardiac testing. Continue to optimize medical management, ICD interrogation. Assessment and Plan Discussion w patient/family: The assessment and plan as outlined above was discussed with the patient and/or family members who expressed understanding and agreement. All questions were answered. Thank you for involving us in the care of your patient. Please call with any questions. History of Present Illness History of present illness: Mr. Mistry is a 82 year old male All Systems Review: The remainder of the systems were reviewed and are negative Physical Examination Vital Signs, Last 4 Hours Temp Pulse Resp BP Pulse Ox 10/11/18 16:17 97.8 F 79 20 105/58 94 Results 10/10/18 05:21 10/10/18 05:21
[2018-10-11] MEDS: Furosemide 40 MG/4 ML VIAL IVP SCH ×2 (10:23→17:04)
[2018-10-11] MEDS: Spironolactone 25 MG TABLET PO SCH (10:23)
[2018-10-11] MEDS: Finasteride 5 MG TABLET PO SCH (10:37)
[2018-10-11] MEDS: Gabapentin 400 MG CAPSULE PO SCH ×3 (10:38→20:34)
[2018-10-11] MEDS: *HR* Amiodarone 200 MG TABLET PO SCH (10:38)
[2018-10-11] MEDS: Metoprolol XL (24 HR) Succ 25 MG TAB.ER.24H PO SCH (10:38)
[2018-10-11] MEDS: Budesonide Neb 0.5 MG/2 ML IH SCH ×2 (11:23→22:10)
--- NOTE | 2018-10-11 13:35 | Internal Med Progress Note ---
Hospitalist Progress Note - Encounter Date of Encounter: 10/11/18 Time of Encounter: 13:32 - Subjective Interval History: Pt ants to know when he is going home, he stated that he does NOT want to go to rehab - Exam Vitals: Temp Pulse Resp BP Pulse Ox 98.2 F 63 20 103/52 96 10/11/18 11:14 10/11/18 11:14 10/11/18 11:14 10/11/18 11:14 10/11/18 11:14 Exam: Gen.: Alert and oriented 3, no acute distress Heart: Regular rate and rhythm, no murmurs, rubs, gallops Lungs: Slightly diminished on right, improved from yesterday, otherwise clear, no rales, rhonchi, wheezes noted Abdomen: Soft, nontender, nondistended. Normoactive bowel sounds. DVT Prophylaxis: heaprin 5,000 Q8 - Summary of Assessment and Plan Summary of Assessment and Plan: (1) Pleural effusion on right Current Visit: Yes Status: Acute Assessment and Plan: resolved, likely due to CHF will see pulm as out pt (2) COPD (chronic obstructive pulmonary disease) Current Visit: No Status: Chronic Assessment and Plan: pt was wheezing but now pt is no longer wheezing, will cont breathing tretment cont steroid as well (3) Chronic respiratory failure Current Visit: Yes Status: Chronic Assessment and Plan: Patient currently on his home oxygen dose of 2.5 L/m and maintaining oxygen saturation greater than 90%. Continue supplemental oxygen (4) Elevated troponin Current Visit: No Status: Acute Assessment and Plan: card on board recommending conservative management only will maxmize the therpay (5) Tobacco abuse Current Visit: Yes Status: Acute Assessment and Plan: Encouraged cessation (6) Type II diabetes mellitus Current Visit: Yes Status: Acute Assessment and Plan: Patient has history of type 2 diabetes on insulin at home however he is noted to be hypoglycemic this morning. Hemoglobin A1c 7.1. We will hold long-acting insulin given his hypoglycemic episode this morning. Continue close monitor blood sugars and adjust insulin regimen as necessary. Continue sliding scale insulin. (7) Essential (primary) hypertension Current Visit: Yes Status: Acute Assessment and Plan: Blood pressure stable. Continue home medications. (8) Melena Current Visit: Yes Status: Acute Assessment and Plan: Hemoglobin stable. Hemoccult stool negative. No evidence of active GI bleed. (9) Afib Current Visit: No Status: Chronic Assessment and Plan: Rate controlled. On Xarelto for anticoagulation, this is been held in anticipation of thoracentesis tomorrow. We will restart after procedure. 10) dispo: to home with home helaht in 1-2 days, pt is very impatient to go home. Time: 35min - Time Spent with Patient Total time spent is greater than 50% in coordination of care (as documented) at patient's floor/unit and/or counseling patient: Internal Medicine: Result - Labs CBC & Chem 7: 10/10/18 05:21 10/10/18 05:21 - ABG Interpretation ABG results: PT/INR, D-dimer PT 14.5 Seconds (9.4-12.1) H 10/07/18 15:28 - Impressions Impressions Ankle X-Ray 10/10/18 11:18 IMPRESSION: Degenerative changes with no acute fracture or dislocation noted given limitations of the exam. D/ / 10/10/2018 16:23:02 Hardik Saleh MD / izabella Interpreting Provider: Hardik Saleh MD - VTE Reasons for not Prescribing Prophylaxis: Not indicated-Anticoagulated or INR therapeutic Consult Discharge Plan - Plan Referrals: Patt Shin CNP [Primary Care Provider] - 10/14/18 10:00 am
[2018-10-12 06:02] LABS: Alanine Aminotransferase 11 Units/L (7-52); Albumin/Globulin Ratio 0.9 (1.1-2.2); Alkaline Phosphatase 65 Units/L (34-104); Aspartate Amino Transferase 17 Units/L (13-39); BUN/Creatinine Ratio 27 (6-26); Bilirubin,Total 0.2 mg/dL (0.3-1.0); Blood Urea Nitrogen 24 mg/dL (8-23); Calcium 8.6 mg/dL (8.6-10.3); Carbon Dioxide 32 mEq/L (23-29); Chloride 101 mEq/L (98-107); Globulin 3.5 g/dL (2.4-3.5); Glucose 183 mg/dL (70-105); Osmolality,Calculated 295 (280-300); Potassium 4.1 mEq/L (3.5-5.1); Sodium 138 mEq/L (136-145); Total Protein 6.5 g/dL (6.4-8.9); eGFR For Non-African Americans > 60 (> 60)
[2018-10-12] MEDS: Budesonide Neb 0.5 MG/2 ML IH SCH (07:16)
[2018-10-12 07:28] LABS: Basophils % 0.3 %; Eosinophils # 0.1 K/mcL (0.0-0.6); Eosinophils % 1.4 %; Hematocrit 34.4 % (37.5-50.1); Hemoglobin 10.4 g/dL (12.9-16.9); Immature Granulocytes % 0.3 % (0-4); Lymphocytes # 1.7 K/mcL (0.6-4.6); Lymphocytes % 19.5 %; Mean Corpuscular HGB Conc 30.2 g/dL (31.6-35.5); Mean Corpuscular Hemoglobin 26.5 pg (28.0-33.3); Mean Corpuscular Volume 87.5 fL (83.0-100.0); Mean Platelet Volume 10.7 fL (9.4-12.4); Monocytes # 0.9 K/mcL (0.0-1.3); Monocytes % 10.5 %; Neutrophils # 5.9 K/mcL (1.6-8.9); Platelet Count 230 K/mcL (140-400); Red Blood Count 3.93 M/mcL (4.19-5.50); Red Cell Distribution Width 18.7 % (11.5-14.5)
[2018-10-12 07:33] VITALS: BP 109/55
[2018-10-12] MEDS: Metoprolol XL (24 HR) Succ 25 MG TAB.ER.24H PO SCH (08:24)
[2018-10-12] MEDS: Gabapentin 400 MG CAPSULE PO SCH (08:24)
[2018-10-12] MEDS: Furosemide 40 MG/4 ML VIAL IVP SCH (08:24)
[2018-10-12] MEDS: *HR* Amiodarone 200 MG TABLET PO SCH (08:24)
[2018-10-12] MEDS: Finasteride 5 MG TABLET PO SCH (08:24)
[2018-10-12] MEDS: Spironolactone 25 MG TABLET PO SCH (08:25)
[2018-10-12] MEDS: Insulin LISPRO 300 UNITS/3 ML VIAL SQ SCH (08:25)
--- NOTE | 2018-10-12 08:39 | Discharge Summary ---
- NOTES TO OUTPATIENT PROVIDER Notes to Outpatient Provider: Follow up with cardiology within 1-2 weeks of hospital discharge. Orders not resulted at time of discharge: Pending orders 10/09/18 07:44 Cytology [PTH] Routine 10/09/18 08:01 Culture,Anaerobic [RM] Routine 10/12/18 07:57 Chest Xray, 1 view [XR chest 1V] [XR] Routine 10/13/18 04:00 Complete Blood Count [HEME] AM 0400 Comprehensive Metabolic Panel AM 0400 10/14/18 04:00 Complete Blood Count [HEME] AM 0400 Comprehensive Metabolic Panel AM 0400 10/15/18 04:00 Complete Blood Count [HEME] AM 0400 Comprehensive Metabolic Panel AM 0400 10/16/18 04:00 Complete Blood Count [HEME] AM 0400 Comprehensive Metabolic Panel AM 0400 Date of Encounter: 10/12/18 Time of Encounter: 08:35 - Discharge Diagnosis (1) COPD (chronic obstructive pulmonary disease) Priority: Primary Status: Chronic Qualifiers: COPD type: unspecified COPD Qualified Code(s): J44.9 - Chronic obstructive pulmonary disease, unspecified (2) Elevated troponin Priority: Secondary Status: Ruled-out (3) Chronic respiratory failure Priority: Secondary Status: Chronic Qualifiers: Respiratory failure complication: hypoxia Qualified Code(s): J96.11 - Chronic respiratory failure with hypoxia (4) Tobacco abuse Priority: Secondary Status: Acute (5) Afib Priority: Secondary Status: Chronic Qualifiers: Atrial fibrillation type: chronic Qualified Code(s): I48.2 - Chronic atrial fibrillation (6) Pleural effusion on right Priority: Secondary Status: Resolved (7) Type II diabetes mellitus Priority: Secondary Status: Resolved Qualifiers: Diabetes mellitus terminal block assembler insulin use: with terminal block assembler use Diabetes mellitus complication status: with hyperglycemia Qualified Code(s): E11.65 - Type 2 diabetes mellitus with hyperglycemia; Z79.4 - predatory animal 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 Mistry is a 82 year old male H smoker, CHF, COPD (emphysema), diabetes, afib, AICD/pacemaker, chronic respiratory failure, pt is hard of hearing, CAD, ischemic cardiomyopathy, and GA. patient presented to the ED due to lower extremity edema and orthopnea. As part of the work up a chest x-ray was done: XR/XR chest 2V IMPRESSION: New large right pleural effusion with overlying compressive atelectasis. CT/CT chest wo con IMPRESSION: 1. Large right pleural effusion of uncertain etiology, which appears at least partially loculated and results in compressive atelectasis of much of the right lung 2. Advanced pulmonary emphysema 3. Calcific coronary atherosclerosis 4. Left ventricular apical calcifications should be correlated with any history of myocardial infarction. Patient admitted to the hospital due to pleural effusion, CHF exacerbation, acute on chronic respiratory failure, elevated trops and melena. cardiology consulted for the elevated trops recommended conservative medical therapy. for the pleural effusion patient underwent a thoracentesis with 800cc for fluids removed. Patient acute respiratory issues resolved with furosemide plus thoracetesis. Patient is clinically and hemodynamically stable to be discharged to SNF. - Time Spent with Patient Total time spent providing and/or coordinating discharge services: Greater than 30 minutes (40) - Discharge Medications Prescriptions: Gabapentin [Neurontin] 800 mg PO TID 30 Days #90 capsule Lisinopril [Zestril] 2.5 mg PO DAILY 30 Days #30 tablet Metoprolol XL (24 HR) Succ [Toprol Xl] 25 mg PO DAILY 30 Days #30 tab.er.24h Spironolactone [Aldactone] 12.5 mg PO DAILY 30 Days #30 tablet Tramadol HCl [Ultram] 50 mg PO TID PRN 10 Days #20 tab PRN Reason: Muscle Pain Home Medications: Ferrous Sulfate [Iron] 325 mg PO BID 09/19/15 [History] Linagliptin [Tradjenta] 5 mg PO DAILY 09/19/15 [History] Omeprazole [PriLOSEC] 20 mg PO DAILY 09/19/15 [History] Rivaroxaban [Xarelto] 20 mg PO DAILY 09/19/15 [History] Sertraline [Zoloft] 100 mg PO DAILY 09/19/15 [History] Finasteride [Proscar] 5 mg PO DAILY #30 tablet 11/05/15 [Rx] Atorvastatin [Lipitor] 40 mg PO HS 05/17/16 [History] Insulin ASPART [Novolog] 0 unit SQ TIDWM 05/17/16 [History] Oxygen 2 l NS HS 05/17/16 [History] Ranolazine [Ranexa] 500 mg PO BID 05/17/16 [History] Amiodarone [Cordarone] 200 mg PO DAILY #30 tablet 11/11/16 [Rx] Furosemide [Lasix] 40 mg PO DAILY #30 tablet 11/11/16 [Rx] Fluticasone/Salmeterol [Advair Hfa 230-21 Mcg Inhaler] 2 puff IH BID 12/04/17 [History] Loratadine [Claritin] 10 mg PO DAILY 12/04/17 [History] Roflumilast [Daliresp] 500 mcg PO DAILY 12/04/17 [History] Gabapentin [Neurontin] 800 mg PO TID #30 tablet 12/07/17 [Rx] Donepezil [Aricept] 10 mg PO HS 07/14/18 [History] Potassium Chloride [Klor-Con 10] 10 meq PO BID 07/14/18 [History] Tramadol HCl [Ultram] 50 mg PO TID PRN 07/14/18 [History] Calcium Carbonate/Vitamin D3 [Calcium 500 + Vit D Caplet] 1 tab PO BID 10/08/18 [History] Insulin Glargine,Hum.rec.anlog [Basaglar Kwikpen U-100] 42 unit SQ HS 10/08/18 [History] Lactose-Reduced Food [Ensure Liquid] 1 bottle PO TID 10/08/18 [History] Melatonin [Melatin] 3 mg PO HS 10/08/18 [History] Umeclidinium [place] [Incruse Ellipta] 62.5 mcg IH DAILY 10/08/18 [History] Gabapentin [Neurontin] 800 mg PO TID 30 Days #90 capsule 10/12/18 [Rx] Lisinopril [Zestril] 2.5 mg PO DAILY 30 Days #30 tablet 10/12/18 [Rx] Metoprolol XL (24 HR) Succ [Toprol Xl] 25 mg PO DAILY 30 Days #30 tab.er.24h 10/12/18 [Rx] Spironolactone [Aldactone] 12.5 mg PO DAILY 30 Days #30 tablet 10/12/18 [Rx] Tramadol HCl [Ultram] 50 mg PO TID PRN 10 Days #20 tab 10/12/18 [Rx] Allergies/Adverse Reactions: Allergy/AdvReac Type Severity Reaction Status Date / Time amitriptyline Allergy Unknown unknown Verified 12/04/17 17:05 Date of admission: 10/08/18 17:36 Primary care physician: Patt Shin CNP Consults: 10/07/18 18:37 Consult to Pulmonology [CONS] Stat Consulting Provider: [facility] Reason for Consult: R plueral effusion Call Completed: Yes 10/07/18 18:45 Consult to Occupational Therapy [CONS] Routine Comment: Evaluate, develop and implement POC Reason for Consult: deconditioning Does patient have active BEDREST order?: No Is patient medically & hemodynamically stable?: Yes Patient assessed for mobility or mobilized this visit?: No Consult to Physical Therapy [CONS] Routine Comment: Evaluate, develop and implement POC Reason for Consult: deconditioning Does patient have active BEDREST order?: No Is patient medically & hemodynamically stable?: Yes Patient assessed for mobility or mobilized this visit?: No 10/07/18 21:51 Consult to Residence Leasing Agent [CONS] Routine Reason for SW Consult: discharge planning 10/08/18 12:32 Consult to Nurse Navigator [CONS] Routine Comment: poss chf 10/10/18 16:27 Consult to Cardiology [CONS] Routine Comment: Consulting Provider: Cardiology Cinthya Reason for Consult: EF 25 %, trop elevaiton upon admisiopn, talked to accpted Call Completed: Yes - Constitutional Vitals: Temp Pulse Resp BP Pulse Ox 98.0 F 62 18 109/55 100 10/12/18 07:32 10/12/18 07:32 10/12/18 07:32 10/12/18 07:32 10/12/18 07:32 General appearance: Present: A&O X 3, no acute distress Exam: Vitals: reviewed General: Alert and oriented x4. No distress Skin: Normal color, no rash, no lesions. HEENT: EOM, pupils equal, round and reactive. Cardiovascular: Irregularly irregular, normal S1 & S2, no rubs, murmurs or gallops. Lungs: minimal scattered bl/ expiratory wheezes, no crackles. Abdomen: Soft, non-tender, no rigidity. Extremities: No deformity, no edema or tenderness, no joint swelling or clubbing. Neurological: Normal cognition and motor skills. Rest of the physical exam is non contributory - Patient Status Disposition: Transfer SNF Condition: Good Functional capacity at discharge: independent ambulation Overall status at discharge: patient is progressing back to baseline - Discharge Instructions Follow Up With: Patt Shin CNP [Primary Care Provider] - 10/14/18 10:00 am - Diet and Activity Activity: as per physical therapy, wear oxygen at all times Diet: low salt diet - VTE Reasons for not Prescribing Prophylaxis: Not indicated-Anticoagulated or INR therapeutic
--- NOTE | 2018-10-12 08:51 | Physician Discharge Referral ---
ExtendedCare Referral Info Transfer To: [facility] - Diagnosis (1) COPD (chronic obstructive pulmonary disease) Priority: Secondary Status: Chronic (2) Elevated troponin Priority: Secondary Status: Ruled-out (3) Chronic respiratory failure Priority: Secondary Status: Chronic (4) Tobacco abuse Priority: Secondary Status: Acute (5) Afib Priority: Secondary Status: Chronic (6) Pleural effusion on right Priority: Primary Status: Resolved (7) Type II diabetes mellitus Priority: Secondary Status: Resolved (8) Essential (primary) hypertension Priority: Secondary Status: Chronic Prognosis: Fair Aware of Diagnosis: Patient Aware of Prognosis: Patient - Transfer Medications Prescriptions: Lisinopril [Zestril] 2.5 mg PO DAILY 30 Days #30 tablet Metoprolol XL (24 HR) Succ [Toprol Xl] 25 mg PO DAILY 30 Days #30 tab.er.24h Spironolactone [Aldactone] 12.5 mg PO DAILY 30 Days #30 tablet Home Medications: Ferrous Sulfate [Iron] 325 mg PO BID 09/19/15 [History] Linagliptin [Tradjenta] 5 mg PO DAILY 09/19/15 [History] Omeprazole [PriLOSEC] 20 mg PO DAILY 09/19/15 [History] Rivaroxaban [Xarelto] 20 mg PO DAILY 09/19/15 [History] Sertraline [Zoloft] 100 mg PO DAILY 09/19/15 [History] Finasteride [Proscar] 5 mg PO DAILY #30 tablet 11/05/15 [Rx] Atorvastatin [Lipitor] 40 mg PO HS 05/17/16 [History] Insulin ASPART [Novolog] 0 unit SQ TIDWM 05/17/16 [History] Oxygen 2 l NS HS 05/17/16 [History] Ranolazine [Ranexa] 500 mg PO BID 05/17/16 [History] Amiodarone [Cordarone] 200 mg PO DAILY #30 tablet 11/11/16 [Rx] Furosemide [Lasix] 40 mg PO DAILY #30 tablet 11/11/16 [Rx] Fluticasone/Salmeterol [Advair Hfa 230-21 Mcg Inhaler] 2 puff IH BID 12/04/17 [History] Loratadine [Claritin] 10 mg PO DAILY 12/04/17 [History] Roflumilast [Daliresp] 500 mcg PO DAILY 12/04/17 [History] Gabapentin [Neurontin] 800 mg PO TID #30 tablet 12/07/17 [Rx] Donepezil [Aricept] 10 mg PO HS 07/14/18 [History] Potassium Chloride [Klor-Con 10] 10 meq PO BID 07/14/18 [History] Tramadol HCl [Ultram] 50 mg PO TID PRN 07/14/18 [History] Calcium Carbonate/Vitamin D3 [Calcium 500 + Vit D Caplet] 1 tab PO BID 10/08/18 [History] Insulin Glargine,Hum.rec.anlog [Basaglar Kwikpen U-100] 42 unit SQ HS 10/08/18 [History] Lactose-Reduced Food [Ensure Liquid] 1 bottle PO TID 10/08/18 [History] Melatonin [Melatin] 3 mg PO HS 10/08/18 [History] Umeclidinium [place] [Incruse Ellipta] 62.5 mcg IH DAILY 10/08/18 [History] Lisinopril [Zestril] 2.5 mg PO DAILY 30 Days #30 tablet 10/12/18 [Rx] Metoprolol XL (24 HR) Succ [Toprol Xl] 25 mg PO DAILY 30 Days #30 tab.er.24h 10/12/18 [Rx] Spironolactone [Aldactone] 12.5 mg PO DAILY 30 Days #30 tablet 10/12/18 [Rx] Allergies/Adverse Reactions: Allergy/AdvReac Type Severity Reaction Status Date / Time amitriptyline Allergy Unknown unknown Verified 12/04/17 17:05 - Respiratory Orders Oxygen / L per min (2) Smoking Cessation: Smoking cessation has been advised. For more information, call the [place] Tobacco Quit Line at 0-707-IBKG-NOW. - Advance Directives Code Status: Full Code - Mobility Orders Ambulate - Rehabiliation Orders Rehab Potential: Fair Rehab Orders: Evaluation for Physical Therapy, Evaluation for Occupational Therapy - Diet Orders Regular CERTIFICATION: I certify that the transfer of the above named patient to an Extended Care Facility is necessary for the continuing treatment of the diagnosis listed. The above information is true and accurate reflection of patient's current condition. Confidential - Redisclosure prohibited without a patient's written consent.
== END 2018-10-12 11:06 | DRG 292 ==
LOC: EMEROOARM 14:50 → 2ANU 14:50 → SUATTDRO 19:33 → 2ANU 20:58 → SUATTDRO 10-08 17:36
PROVIDERS: ADMIT Internal Medicine; ATTEND Internal Medicine